=== PATIENT | male | born 1960 | race Caucasian/White ===

== ENCOUNTER 2018-06-26 19:30 | Emergency (ER) | payer MEDICARE, OTHER ==
[~2018-06-26] VITALS: Ht 188 cm; Wt 132.9 kg
[~2018-06-26 19:30] MED LIST: ACET325T9 PO; ARIP10TA9 PO; BENZ-8 PO; BISA10SU13 RC; BISA10SU2 RC; BUTE15CR TP; CALC500T PO; CELE200C PO; CHOL10003 PO; CIPR500T94 PO; CYCL10TA2 PO; DOCU100T17 PO; FERR325T14 PO; FLUT16SP NS; HYDR-2762 PO; LACT1CAP PO; LEVO50TA5 PO; LOSA50TA7 PO; MAGN2400 PO; METF500T16 PO; METR500T PO; MULT-638 PO; OMEP20CA9 PO; PANT40GR PO; PANT40TA3 PO; POLY17PO3 PO; SENN1TAB9 PO; TAMS0.4C97 PO; VENL75TA PO; VENTOLIN HFA18 GM INH; WARF2TAB96 PO; ZOLP5TAB PO
[2018-06-26] MEDS ORDERED: IV NORMAL SALINE 1000ML BAG 1,000 ML IV ONE (19:45)
--- NOTE | 2018-06-26 19:45 | PHYS DOC ---
Past Medical History Past Medical History: Asthma, Diabetes-Type II, GERD, Other Additional Past Medical Histor: Hard of Hearing. Past Surgical History: Cholecystectomy Alcohol Use: None Drug Use: None Adult General Chief Complaint Chief Complaint: NEAR SYNCOPE HPI HPI Patient is a 58 year old male who presents to the emergency room brought in by ambulance lightheadedness. 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 He said he has felt this way before but he does not recall what happened. He says he has been well recently he did not eat anything today however his last meal was yesterday. He does not know why he was busy today. He has been drinking fluids blood sugar was 113 he says he feels this way int he past when his blood glucose drops below 200 where it normally is, he thinks that is what happened today. no fever no dysuria no vomiting no diarrhea currently feels some mild lightheadedness worse with standing up. Review of Systems Review of Systems Constitutional: Denies fever or chills [] Eyes: Denies change in visual acuity, redness, or eye pain [] HENT: Denies nasal congestion or sore throat [] Respiratory: Denies cough or shortness of breath [] Cardiovascular: No additional information not addressed in HPI [] GI: Denies abdominal pain, nausea, vomiting, bloody stools or diarrhea [] Musculoskeletal: Denies back pain or joint pain [] Integument: Denies rash or skin lesions [] Neurologic: Denies headache, focal weakness or sensory changes [] Endocrine: Denies polyuria or polydipsia [] All other systems were reviewed and found to be within normal limits, except as documented in this note. Current Medications Current Medications Current Medications Medications (Trade) Dose Ordered Sig/Dangelo Start Time Stop Time Status Last Admin Dose Admin Meclizine HCl (Antivert) 25 mg 1X ONCE 06/26/18 20:15 06/26/18 20:16 DC 06/26/18 20:23 25 MG Sodium Chloride 1,000 ml @ 1,000 mls/hr 1X ONCE 06/26/18 19:45 06/26/18 20:44 DC 06/26/18 19:48 1,000 MLS/HR Allergies Allergies Allergies Coded Allergies Type Severity Reaction Last Updated Verified I S O L A T I O N *CONTACT* Allergy Unknown 09/13/15 Yes aspirin Adverse Reaction Intermediate stomach upset 09/13/15 No Physical Exam Physical Exam Constitutional: Well developed, well nourished, no acute distress, non-toxic appearance. [] HENT: Normocephalic, atraumatic, bilateral external ears normal, oropharynx dry no oral exudates, nose normal. [] Eyes: PERRLA, EOMI, conjunctiva normal, no discharge. [] Neck: Normal range of motion, no tenderness, supple, no stridor. [] Cardiovascular:Heart rate regular rhythm, no murmur [] Lungs & Thorax: Bilateral breath sounds clear to auscultation [] Abdomen: Bowel sounds normal, soft, no tenderness, no masses, no pulsatile masses. [] Skin: Warm, dry, no erythema, no rash. [] Back: No tenderness, no CVA tenderness. [] Extremities: No tenderness, no cyanosis, no clubbing, ROM intact, no edema. [] Neurologic: Alert and oriented X 3, normal motor function, normal sensory function, no focal deficits noted. [] fnf intact cn's intact, no cerebellar sign Psychologic: Affect normal, judgement normal, mood normal. [] Current Patient Data Vital Signs Vital Signs Date Time Temp Pulse Resp B/P (MAP) Pulse Ox O2 Delivery O2 Flow Rate FiO2 06/26/18 19:41 98.5 76 18 129/66 (87) 97 Room Air 98.5 Lab Values Laboratory Tests Test 06/26/18 19:40 06/26/18 20:25 White Blood Count 7.2 x10^3/uL (4.0-11.0) Red Blood Count 4.90 x10^6/uL (4.30-5.70) Hemoglobin 13.0 g/dL (13.0-17.5) Hematocrit 38.9 % (39.0-53.0) L Mean Corpuscular Volume 79 fL (79-100) Mean Corpuscular Hemoglobin 27 pg (25-35) Mean Corpuscular Hemoglobin Concent 33 g/dL (31-37) Red Cell Distribution Width 16.7 % (11.5-14.5) H Platelet Count 294 x10^3/uL (140-400) Neutrophils (%) (Auto) 67 % (31-73) Lymphocytes (%) (Auto) 22 % (24-48) L Monocytes (%) (Auto) 9 % (0-9) Eosinophils (%) (Auto) 1 % (0-3) Basophils (%) (Auto) 1 % (0-3) Neutrophils # (Auto) 4.8 x10^3uL (1.8-7.7) Lymphocytes # (Auto) 1.6 x10^3/uL (1.0-4.8) Monocytes # (Auto) 0.7 x10^3/uL (0.0-1.1) Eosinophils # (Auto) 0.1 x10^3/uL (0.0-0.7) Basophils # (Auto) 0.1 x10^3/uL (0.0-0.2) Sodium Level 138 mmol/L (136-145) Potassium Level 3.8 mmol/L (3.5-5.1) Chloride Level 101 mmol/L (98-107) Carbon Dioxide Level 28 mmol/L (21-32) Anion Gap 9 (6-14) Blood Urea Nitrogen 17 mg/dL (8-26) Creatinine 2.2 mg/dL (0.7-1.3) H Estimated GFR (Cockcroft-Gault) 31.0 BUN/Creatinine Ratio 8 (6-20) Glucose Level 113 mg/dL (70-99) H Calcium Level 9.2 mg/dL (8.5-10.1) Total Bilirubin 0.8 mg/dL (0.2-1.0) Aspartate Amino Transferase (AST) 10 U/L (15-37) L Alanine Aminotransferase (ALT) 16 U/L (16-63) Alkaline Phosphatase 138 U/L (46-116) H Troponin I Quantitative < 0.017 ng/mL (0.000-0.055) GB-Ask-C-Type Natriuretic Peptide 112 pg/mL (0-124) Total Protein 8.6 g/dL (6.4-8.2) H Albumin 3.4 g/dL (3.4-5.0) Albumin/Globulin Ratio 0.7 (1.0-1.7) L Urine Collection Type Unknown Urine Color Ingrid Urine Clarity Clear Urine pH 5.5 Urine Specific [place] 1.025 Urine Protein 30 mg/dL (NEG-TRACE) Urine Glucose (UA) Negative mg/dL (NEG) Urine Ketones (Stick) Trace mg/dL (NEG) Urine Blood Negative (NEG) Urine Nitrite Negative (NEG) Urine Bilirubin Small (NEG) Urine Urobilinogen Dipstick 1.0 mg/dL (0.2 mg/dL) Urine Leukocyte Esterase Negative (NEG) Urine RBC 0 /HPF (0-2) Urine WBC 1-4 /HPF (0-4) Urine Squamous Epithelial Cells Occ /LPF Urine Amorphous Sediment Present /HPF Urine Bacteria 0 /HPF (0-FEW) Urine Hyaline Casts Occasional /HPF Urine Granular Casts Occasional /HPF Urine Mucus Mod /LPF Laboratory Tests 06/26/18 19:40 Laboratory Tests 06/26/18 19:40 EKG EKG [] Interpretation Time: EKG shows a normal sinus rhythm rate of 76 there is QRS 82 QTc 425 no ischemia was identified on this EKG interpreted by me the time of encounter Radiology/Procedures Radiology/Procedures [] Impressions: cxr portable poor quality pa/lateral my interp no definte pna, overall similar to prior, mild cardiomegaly Course & Med Decision Making Course & Med Decision Making Pertinent Labs and Imaging studies reviewed. (See chart for details) []History of asthma diabetes GERD history of prior SBO presenting with dizziness and lightheadedness. Sounds orthostatic by history but we will do a general emergency room workup hydrate the patient check orthostatics rule out acute coronary syndrome which I think is highly unlikely and go from there. 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 His lab workup is essentially unremarkable his creatinine is 2.2 which is basically at baseline no evidence of infection identified patient is very well-appearing neurologically intact I think at this point there was no chest pain at all no concerning features by history it is okay to go home he is ambulated and taken oral in the emergency room Return precautions were discussed in detail he voiced understanding of instructions Dragon Disclaimer Dragon Disclaimer This electronic medical record was generated, in whole or in part, using a voice recognition dictation system. Departure Departure Impression: Primary Impression: Lightheadedness Disposition: 01 HOME, SELF-CARE Condition: STABLE Referrals: Artemio NAJERA MD (PCP) AUDRA ANDERSON MD Jun 26, 2018 19:45
[2018-06-26 19:57] LABS: BASO # 0.1 x10^3/uL (0.0-0.2); BASO % 1 % (0-3); EOS # 0.1 x10^3/uL (0.0-0.7); EOS % 1 % (0-3); HEMATOCRIT 38.9 % (39.0-53.0); LYMPH # 1.6 x10^3/uL (1.0-4.8); LYMPH % 22 % (24-48); MEAN CORPUSCULAR HEMOGLOBIN 27 pg (25-35); MEAN CORPUSCULAR HGB CONC 33 g/dL (31-37); MEAN CORPUSCULAR VOLUME 79 fL (79-100); MONO # 0.7 x10^3/uL (0.0-1.1); MONO % 9 % (0-9); NEUT # 4.8 x10^3uL (1.8-7.7); NEUT % 67 % (31-73); PLATELET COUNT 294 x10^3/uL (140-400); RED CELL DISTRIBUTION WIDTH 16.7 % (11.5-14.5); WHITE BLOOD COUNT 7.2 x10^3/uL (4.0-11.0)
[2018-06-26 20:07] LABS: CALCIUM 9.2 mg/dL (8.5-10.1); CREATININE 2.2 mg/dL (0.7-1.3); POTASSIUM 3.8 mmol/L (3.5-5.1)
[2018-06-26 20:13] LABS: ALBUMIN 3.4 g/dL (3.4-5.0); ALBUMIN/GLOBULIN RATIO 0.7 (1.0-1.7); TOTAL BILIRUBIN 0.8 mg/dL (0.2-1.0); TOTAL PROTEIN 8.6 g/dL (6.4-8.2)
[2018-06-26] MEDS ORDERED: MECLIZINE HCL 12.5 MG TABLET. PO ONE (20:15)
[2018-06-26 20:31] LABS: BILIRUBIN,URINE SMALL (NEG); CLARITY,URINE CLEAR; COLOR,URINE AMBER; NITRITE,URINE NEGATIVE (NEG); PH,URINE 5.5; PROTEIN,URINE 30 mg/dL (NEG-TRACE)
[2018-06-26 20:36] LABS: AMORPHOUS SEDIMENT,UR PRESENT /HPF; BACTERIA,URINE 0 /HPF (0-FEW); GRANULAR CASTS,URINE OCCASIONAL /HPF; HYALINE CASTS, URINE OCCASIONAL /HPF; RBC,URINE 0 /HPF (0-2); SQUAMOUS EPITHELIAL CELL,UR OCC /LPF
[2018-06-26 21:35] VITALS: BP 117/71
--- NOTE | 2018-06-27 07:47 | RAD ---
PORTABLE CHEST 1V INDICATION: weakness COMPARISON: Chest radiograph dated 07/15/2017 FINDINGS: Low lung volume. No focal consolidation. Remote granulomatous disease. Unchanged pulmonary vasculature. No pleural effusion or pneumothorax. Borderline cardiomegaly likely accentuated due to low lung volume and portable technique. Unchanged slightly tortuous thoracic aorta. No acute osseous abnormality. IMPRESSION: 1. No focal consolidation. 2. Borderline cardiomegaly likely accentuated due to low lung volume and portable technique. Electronically signed by: Karan Pratt MD (06/27/2018 7:43 AM) [facility]
--- NOTE | 2018-06-27 07:48 | RAD ---
CHEST PA LATERAL History: weak Comparison: None. Findings: Normal lung volume. No focal consolidation. Remote granulomatous disease. Unchanged pulmonary vasculature. No pleural effusion or pneumothorax. Borderline cardiomegaly. Slightly tortuous thoracic aorta. No acute osseous abnormality. Moderate multilevel degenerative changes of the visualized spine. IMPRESSION: 1. No focal consolidation. 2. Borderline cardiomegaly. Electronically signed by: Karan Pratt MD (06/27/2018 7:45 AM) [facility]
--- NOTE | 2018-06-27 08:10 | EKG ---
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
== END 2018-06-26 21:35 | disposition home or self-care (01) ==
LOC: ER 19:30
DX: R42 Dizziness and giddiness (principal); J45.909 Unspecified asthma, uncomplicated; K21.9 Gastro-esophageal reflux disease without esophagitis; E11.9 Type 2 diabetes mellitus without complications; Z90.49 Acquired absence of other specified parts of digestive tract; Z88.6 Allergy status to analgesic agent; Z91.041 Radiographic dye allergy status
CPT/HCPCS: 36415; 71045; 71046; 80053; 81001; 83880; 84484; 85025; 93005; 96360; 96361; 99285; J7030; J8597

== ENCOUNTER 2020-03-31 09:48 | Inpatient (IN) | payer MEDICARE, OTHER ==
[~2020-03-31] VITALS: Ht 188 cm; Wt 135.6 kg
[~2020-03-31 09:48] MED LIST changes: -BISA10SU2 RC; +BISA10SU4 RC; -CALC500T PO; +CALC500T31 PO; -HYDR-2762 PO; +HYDR-2765 PO; +LOSA-73 PO; -LOSA50TA7 PO; -MAGN2400 PO; +MAGN24003 PO; +OMEP20CA16 PO; -OMEP20CA9 PO; -PANT40TA3 PO; +PANT40TA77 PO; +POLY17PO28 PO; -POLY17PO3 PO; +SENN-162 PO; -SENN1TAB9 PO
--- NOTE | 2020-03-31 10:37 | PHYS DOC ---
Past Medical History Past Medical History: Asthma, Diabetes-Type II, GERD, Other Additional Past Medical Histor: Hard of Hearing. Past Surgical History: Cholecystectomy, Other Additional Past Surgical Histo: L LEG Smoking Status: Current Some Day Smoker Alcohol Use: None Drug Use: None General Adult EDM: Chief Complaint: ABDOMINAL PAIN HPI: HPI: Patient is a 60 year old male presents via EMS for shortness of breath and generalized weakness. Onset was 2 months ago, notes shortness of breath worsened last 1 week without any known inciting event. Nothing known makes better or worse. Does denies any type of pain at this time. Timing of symptoms has been constant since onset. Associated symptoms include several episodes of nonbloody diarrhea for past 24 hours. Patient denies any fevers, known COVID-19 contacts, recent travel, or concerning ingestions. Patient was tired of not feeling well resulting in him presenting for evaluation today Of note, patient is a poor historian. He has little recollection about his med ical history Review of Systems: Review of Systems: Constitutional: Denies fever or chills. Admits to generalized malaise [] Eyes: Denies change in visual acuity. [] HENT: Denies nasal congestion or sore throat. [] Respiratory: Denies cough. Admits increased shortness of breath, no wheezes [] Cardiovascular: Denies chest pain or edema. [] GI: Denies abdominal discomfort but no pain, nausea, vomiting, bloody stools or diarrhea. [] : Denies dysuria. [] Musculoskeletal: Denies joint pain. [] Integument: Denies rash. [] Neurologic: Denies headache, focal weakness or sensory changes. [] Endocrine: Denies polyuria or polydipsia. [] Lymphatic: Denies swollen glands. [] Psychiatric: Denies depression or anxiety. [] Heart Score: HEART Score for Chest Pain: HEART Score for Chest Pain Response (Comments) Value History Slighlty/Non-Suspicious 0 ECG Normal 0 Age >45 - < 65 1 Risk Factors >3 Risk Factors or Hx CAD 2 Troponin < Normal Limit 0 Total 3 Risk Factors: Risk Factors: DM, Current or recent (<one month) smoker, HTN, HLP, family history of CAD, obesity. Risk Scores: Score 0 - 3: 2.5% MACE over next 6 weeks - Discharge Home Score 4 - 6: 20.3% MACE over next 6 weeks - Admit for Clinical Observation Score 7 - 10: 72.7% MACE over next 6 weeks - Early Invasive Strategies Allergies: Allergies: Allergies Coded Allergies Type Severity Reaction Last Updated Verified I S O L A T I O N *CONTACT* Allergy Unknown 09/13/15 Yes aspirin Adverse Reaction Intermediate stomach upset 09/13/15 No Physical Exam: PE: Constitutional: Well developed, well nourished, no acute distress, non-toxic appearance. [] HENT: Normocephalic, atraumatic, bilateral external ears normal, oropharynx moist, no oral exudates, nose normal. [] Eyes: PERRLA, EOMI, conjunctiva normal, no discharge. [] Neck: Normal range of motion, no tenderness, supple, no stridor. [] Cardiovascular:Heart rate regular rhythm, no murmur [] Lungs & Thorax: Bilateral breath sounds clear to auscultation [] Abdomen: Bowel sounds normal, soft, no tenderness, no masses, no pulsatile masses. [] Skin: Warm, dry, no erythema, no rash. [] Back: No tenderness, no CVA tenderness. [] Extremities: No tenderness, no cyanosis, no clubbing, ROM intact, no edema. [] Neurologic: Alert and oriented X 3, normal motor function, normal sensory function, no focal deficits noted. [] Psychologic: Affect normal, judgement normal, mood normal. [] Current Patient Data: Labs: Laboratory Tests Test 03/31/20 10:50 03/31/20 14:00 03/31/20 20:53 White Blood Count 1.9 x10^3/uL Red Blood Count 4.46 x10^6/uL Hemoglobin 11.9 g/dL Hematocrit 35.2 % Mean Corpuscular Volume 79 fL Mean Corpuscular Hemoglobin 27 pg Mean Corpuscular Hemoglobin Concent 34 g/dL Red Cell Distribution Width 16.6 % Platelet Count 180 x10^3/uL Neutrophils (%) (Auto) 45 % Lymphocytes (%) (Auto) 40 % Monocytes (%) (Auto) 12 % Eosinophils (%) (Auto) 1 % Basophils (%) (Auto) 1 % Neutrophils # (Auto) 0.8 x10^3/uL Lymphocytes # (Auto) 0.7 x10^3/uL Monocytes # (Auto) 0.2 x10^3/uL Eosinophils # (Auto) 0.0 x10^3/uL Basophils # (Auto) 0.0 x10^3/uL Segmented Neutrophils % 37 % Band Neutrophils % 19 % Lymphocytes % 35 % Monocytes % 9 % Platelet Estimate Adequate Poikilocytosis Slight Anisocytosis Slight Ovalocytes Occ Sodium Level 138 mmol/L Potassium Level 2.7 mmol/L Chloride Level 99 mmol/L Carbon Dioxide Level 30 mmol/L Anion Gap 9 Blood Urea Nitrogen 9 mg/dL Creatinine 2.4 mg/dL Estimated GFR (Cockcroft-Gault) 27.8 BUN/Creatinine Ratio 4 Glucose Level 93 mg/dL Calcium Level 7.3 mg/dL Phosphorus Level 1.9 mg/dL Magnesium Level 1.8 mg/dL Ferritin 30 ng/mL Total Bilirubin 0.7 mg/dL Aspartate Amino Transf (AST/SGOT) 11 U/L Alanine Aminotransferase (ALT/SGPT) 10 U/L Alkaline Phosphatase 108 U/L Lactate Dehydrogenase 169 U/L Troponin I Quantitative < 0.017 ng/mL C-Reactive Protein, Quantitative 19.2 mg/L Total Protein 7.4 g/dL Albumin 3.2 g/dL Albumin/Globulin Ratio 0.8 Urine Collection Type Void Urine Color Yellow Urine Clarity Clear Urine pH 6.0 Urine Specific [place] 1.010 Urine Protein 30 mg/dL Urine Glucose (UA) Negative mg/dL Urine Ketones (Stick) Negative mg/dL Urine Blood Negative Urine Nitrite Negative Urine Bilirubin Negative Urine Urobilinogen Dipstick 1.0 mg/dL Urine Leukocyte Esterase Negative Urine RBC 0 /HPF Urine WBC Rare /HPF Urine Squamous Epithelial Cells None /LPF Urine Amorphous Sediment Present /HPF Urine Bacteria 0 /HPF Glucose (Fingerstick) 93 mg/dL Current Medications Medications (Trade) Dose Ordered Sig/Dangelo Route PRN Reason Start Time Stop Time Status Last Admin Dose Admin Albuterol/ Ipratropium (Duoneb) 3 ml 1X ONCE NEB 03/31/20 10:45 03/31/20 10:46 DC 03/31/20 11:13 Potassium Chloride (Klor-Con) 40 meq 1X ONCE PO 03/31/20 13:00 03/31/20 13:01 DC 03/31/20 14:27 Sodium Chloride 1,000 ml @ 30 mls/hr 1X ONCE IV 03/31/20 13:30 04/01/20 22:49 03/31/20 14:27 Ondansetron HCl (Zofran) 4 mg PRN Q4HRS PRN IV NAUSEA/VOMITING 03/31/20 13:30 Zolpidem Tartrate (Ambien) 5 mg PRN QHS PRN PO INSOMNIA 03/31/20 13:30 Acetaminophen (Tylenol) 650 mg PRN Q4HRS PRN PO TEMP OVER 100.4F OR MILD PAIN 03/31/20 13:30 Docusate Sodium (Colace) 100 mg PRN BID PRN PO HARD STOOLS 03/31/20 13:30 Albuterol Sulfate (Ventolin Neb Soln) 2.5 mg PRN Q4HRS PRN NEB SHORTNESS OF BREATH 03/31/20 13:30 Guaifenesin (Robitussin) 200 mg PRN Q4HRS PRN PO COUGH 03/31/20 13:30 Lorazepam (Ativan) 0.5 mg PRN Q4HRS PRN PO ANXIETY / AGITATION 03/31/20 13:30 Acetaminophen (Tylenol) 650 mg PRN Q4HRS PRN PO PAIN 03/31/20 13:30 Benzonatate (Tessalon Perle) 100 mg TID PO 03/31/20 14:00 03/31/20 21:32 Cyclobenzaprine HCl (Flexeril) 10 mg PRN Q6HRS PRN PO MUSCLE SPASMS 03/31/20 13:30 Polyethylene Glycol (miraLAX PACKET) 17 gm PRN DAILY PRN PO CONSTIPATION 03/31/20 13:30 Potassium Chloride (Klor-Con) 40 meq Q2H PO 03/31/20 13:45 03/31/20 15:46 DC 03/31/20 15:58 Vital Signs: Vital Signs Date Time Temp Pulse Resp B/P (MAP) Pulse Ox O2 Delivery O2 Flow Rate FiO2 03/31/20 19:53 99.5 68 18 102/61 (75) 97 Room Air 99.5 03/31/20 16:11 99.2 69 19 138/75 (96) 100 Nasal Cannula 2.0 99.2 03/31/20 13:45 76 18 128/75 (92) 96 Room Air 03/31/20 12:45 74 20 131/83 (99) 96 Room Air 03/31/20 11:45 79 18 138/79 (98) 94 Room Air 03/31/20 11:16 92 Room Air 03/31/20 10:45 77 18 134/77 (96) 95 Room Air 03/31/20 09:50 98.6 70 20 124/67 (86) 95 Room Air 98.6 EKG: EKG: EKG ordered and interpreted by myself as sinus rhythm at 77 bpm, prolonged QT with QTC 489, other intervals unremarkable. Left axis deviation. Nonspecific T wave abnormalities in V2 and V3. No STEMI Radiology/Procedures: Radiology/Procedures: PROCEDURE: PORTABLE CHEST 1V EXAM: Chest, single view. HISTORY: Shortness of breath. COMPARISON: 06/26/2018. FINDINGS: A frontal view of the chest is obtained. There is diffuse increased interstitial opacity due to interstitial infiltrate. There are few calcified granulomas. There is no consolidation, protrusion or pneumothorax. There is a stable prominent cardiac silhouette. IMPRESSION: Diffuse interstitial infiltrate. No consolidation is seen. Electronically signed by: Vanita Hassan MD (03/31/2020 11:11 AM) [id number] DICTATED and SIGNED BY: VANITA HASSAN MD DATE: 03/31/20 1111 Course & Med Decision Making: Course & Med Decision Making Patient seen on ED arrival by myself Vitals grossly unremarkable, limited history obtained given patient's lack of knowledge, comprehensive physical exam grossly non-concerning for acute pathology Pertinent labs and imaging studies ordered and reviewed Case discussed with on-call hospitalist, Dr. Cannon, who accepted patient for continued medical management Patient's leukopenia, severe hypokalemia, and renal impairment require hospitalization for continued medical management ED course discussed with patient in its entirety. Patient disclosed he had a history of cancer and right nephrectomy, unknown what baseline kidney function is Ultimately, patient agreeable to hospital admission for further work-up and medical intervention Patient currently under investigation for COVID-19 and pending test Dragon Disclaimer: Dragjonny Disclaimer: This electronic medical record was generated, in whole or in part, using a voice recognition dictation system. Departure Departure Impression: Primary Impression: Hypokalemia Additional Impressions: Elevated serum creatinine Leukopenia Disposition: ADMITTED INPATIENT Admitting Physician: [facility] (Dr. Cannon) Condition: STABLE Referrals: Artemio NAJERA MD (PCP) Justicifation of Admission Dx: Justifications for Admission: Justification of Admission Dx: Yes CHF: Sev. Electrolyte Abnormal Acute Renal Failure: 3-Fold Rise in Serum Crea TAYLOR CHRISTIE DO Mar 31, 2020 10:37
[2020-03-31] MEDS ORDERED: IPRATRPIUM/ALBUTEROL 0.5/2.5MG 3 ML NEBU. NEB ONE (10:45)
[2020-03-31 11:03] LABS: BASO % 1 % (0-3); EOS % 1 % (0-3); HEMATOCRIT 35.2 % (39.0-53.0); HEMOGLOBIN 11.9 g/dL (13.0-17.5); LYMPH # 0.7 x10^3/uL (1.0-4.8); LYMPH % 40 % (24-48); MEAN CORPUSCULAR HEMOGLOBIN 27 pg (25-35); MEAN CORPUSCULAR HGB CONC 34 g/dL (31-37); MEAN CORPUSCULAR VOLUME 79 fL (79-100); MONO # 0.2 x10^3/uL (0.0-1.1); MONO % 12 % (0-9); NEUT # 0.8 x10^3/uL (1.8-7.7); NEUT % 45 % (31-73); PLATELET COUNT 180 x10^3/uL (140-400); RED BLOOD COUNT 4.46 x10^6/uL (4.30-5.70); RED CELL DISTRIBUTION WIDTH 16.6 % (11.5-14.5)
[2020-03-31 11:05] LABS: WHITE BLOOD COUNT 1.9 x10^3/uL (4.0-11.0)
[2020-03-31 11:14] LABS: ALBUMIN 3.2 g/dL (3.4-5.0); ALBUMIN/GLOBULIN RATIO 0.8 (1.0-1.7); CALCIUM 7.3 mg/dL (8.5-10.1); CREATININE 2.4 mg/dL (0.7-1.3); GFR 27.8; TOTAL BILIRUBIN 0.7 mg/dL (0.2-1.0); TOTAL PROTEIN 7.4 g/dL (6.4-8.2)
--- NOTE | 2020-03-31 11:14 | RAD ---
EXAM: Chest, single view. HISTORY: Shortness of breath. COMPARISON: 06/26/2018. FINDINGS: A frontal view of the chest is obtained. There is diffuse increased interstitial opacity due to interstitial infiltrate. There are few calcified granulomas. There is no consolidation, protrusion or pneumothorax. There is a stable prominent cardiac silhouette. IMPRESSION: Diffuse interstitial infiltrate. No consolidation is seen. Electronically signed by: Vanita Yoon MD (03/31/2020 11:11 AM) [id number]
[2020-03-31 11:17] LABS: POTASSIUM 2.7 mmol/L (3.5-5.1)
[2020-03-31 12:39] LABS: % BANDS 19 % (0-9); % LYMPHS 35 % (24-48); % MONOS 9 % (0-10); % SEGS 37 % (35-66)
[2020-03-31 12:44] LABS: ANISOCYTOSIS SLIGHT; OVALOCYTES OCC; PLT ESTIMATE ADEQUATE (ADEQUATE); POIKILOCYTOSIS SLIGHT
[2020-03-31] MEDS ORDERED: POTASSIUM CHLORIDE 20 MEQ TABLET.ER. PO ONE (13:00)
[2020-03-31] MEDS ORDERED: ALBUTEROL SULFATE 2.5 MG/3 ML NEBU. NEB PRN (13:30)
[2020-03-31] MEDS ORDERED: CYCLOBENZAPRINE 10 MG TABLET. PO PRN (13:30)
[2020-03-31] MEDS ORDERED: IV NORMAL SALINE 1000ML BAG 1,000 ML IV ONE (13:30)
[2020-03-31] MEDS ORDERED: guaiFENesin ORAL 200 MG/10 ML LIQUID. PO PRN (13:30)
[2020-03-31] MEDS ORDERED: POLYETHYLENE GLYCOL 3350 17 GM PACKET. PO PRN (13:30)
[2020-03-31] MEDS ORDERED: ACETAMINOPHEN 325 MG TABLET. PO PRN ×2 (13:30)
[2020-03-31] MEDS ORDERED: DOCUSATE SODIUM 100 MG CAPSULE. PO PRN (13:30)
[2020-03-31] MEDS ORDERED: ZOLPIDEM 5 MG TABLET. PO PRN (13:30)
[2020-03-31] MEDS ORDERED: LORazepam 0.5 MG TABLET PO PRN (13:30)
[2020-03-31] MEDS ORDERED: ONDANSETRON PF 4 MG/2 ML VIAL. IV PRN (13:30)
[2020-03-31 14:44] LABS: BILIRUBIN,URINE NEGATIVE (NEG); CLARITY,URINE CLEAR; COLOR,URINE YELLOW; NITRITE,URINE NEGATIVE (NEG); PROTEIN,URINE 30 mg/dL (NEG-TRACE)
[2020-03-31 14:57] LABS: BACTERIA,URINE 0 /HPF (0-FEW); RBC,URINE 0 /HPF (0-2)
[2020-03-31 14:57] LABS: C-REACTIVE PROTEIN 19.2 mg/L (0-3.3)
[2020-03-31 14:58] LABS: AMORPHOUS SEDIMENT,UR PRESENT /HPF; WBC,URINE RARE /HPF (0-4)
[2020-03-31] MEDS: BENZONATATE 100 MG CAPSULE. PO SCH ×2 (15:37→21:32)
[2020-03-31] MEDS: POTASSIUM CHLORIDE 20 MEQ TABLET.ER. PO SCH ×3 (15:38→15:58)
[2020-03-31 16:11] VITALS: BP 138/75
[2020-03-31 19:53] VITALS: BP 102/61
[2020-03-31] MEDS: FLUTICASONE 50MCG/NASAL SPRAY 16GM BOTTLE. NS SCH (21:31)
[2020-03-31] MEDS: CELECOXIB 100 MG CAPSULE. PO SCH (21:32)
[2020-03-31] MEDS: VENLAFAXINE 75 MG TABLET. PO SCH (21:32)
[2020-03-31] MEDS: SENNOSIDES/DOCUSATE 8.6/50MG TABLET. PO SCH (21:32)
[2020-03-31 23:28] VITALS: BP 121/74
[2020-04-01 03:23] VITALS: BP 113/74
[2020-04-01] MEDS: PANTOPRAZOLE 40 MG TABLET.DR. PO SCH ×2 (07:30→08:38)
[2020-04-01 07:51] VITALS: BP 105/51
[2020-04-01] MEDS: CELECOXIB 100 MG CAPSULE. PO SCH ×2 (08:38→08:55)
[2020-04-01] MEDS: BENZONATATE 100 MG CAPSULE. PO SCH ×3 (08:38→20:58)
[2020-04-01] MEDS: VENLAFAXINE 75 MG TABLET. PO SCH ×3 (08:38→20:58)
[2020-04-01] MEDS: ARIPiprazole 5 MG TABLET PO SCH ×2 (08:38→08:55)
[2020-04-01] MEDS: MULTIVITAMIN with MINERAL TABLET. PO SCH (08:39)
[2020-04-01] MEDS: LEVOTHYROXINE 50 MCG TABLET PO SCH ×2 (08:39→08:55)
[2020-04-01] MEDS: CHOLECALCIFEROL (VITAMIN D3) 1,000 UNIT TABLET PO SCH ×2 (08:39→08:55)
[2020-04-01] MEDS: FLUTICASONE 50MCG/NASAL SPRAY 16GM BOTTLE. NS SCH ×2 (08:39→20:59)
--- NOTE | 2020-04-01 08:56 | NUR ---
Pt could not verify that he takes these home medications. Pt does not remember what medications he takes nor what pharmacy he uses for his medications. This RN asked patient if his sister could verify his home medications and he stated she would not know them. Will notify MD. Will continue to monitor.
[2020-04-01] MEDS ORDERED: LOSARTAN POTASSIUM 50 MG TABLET. PO SCH (09:00)
[2020-04-01] MEDS ORDERED: ARIPiprazole 5 MG TABLET PO SCH (09:00)
[2020-04-01] MEDS ORDERED: OMEP40CA45 PO (11:00)
[2020-04-01] MEDS ORDERED: ARIP10TA15 PO (11:00)
[2020-04-01] MEDS ORDERED: CITA20TA6 PO (11:00)
[2020-04-01] MEDS ORDERED: LOSA50TA15 PO (11:00)
[2020-04-01] MEDS ORDERED: LEVO75TA5 PO (11:00)
--- NOTE | 2020-04-01 11:08 | PDOC1 ---
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 He also noted shortness of breath and generalized weakness. His abdominal complaints were fairly sudden while he was at work. Shortness of breath began 2 months ago, notes shortness of breath worsened last 1 week without any known inciting event. Nothing known makes better or worse. Does denies any type of pain at this time. Timing of symptoms has been constant since onset. Associated symptoms include several episodes of nonbloody diarrhea for past 24 hours. Patient denies any fevers, known COVID-19 contacts, recent travel, or concerning ingestions. Patient was tired of not feeling well resulting in him presenting for evaluation. Of note a week ago he was given a prescription for metronidazole for GI symptoms. CXR with diffuse interstitial opacities. Labs significant for NA 138K2.7 BUN 9, CR 2.4, glucose 93, CRP 19.2, phosphorus 1.9, ferritin 30, albumin 3.2, WBC 1.9 with ANC of 0.8, Hb 11.9, platelets 180. Admitted for further care Past Medical History Pulmonary: Asthma GI: GERD Endocrine: Diabetes Past Surgical History Past Surgical History: Appendectomy, Cholecystectomy, Hernia Repair, Other (Right nephrectomy) Family History Family History: Cancer, Diabetes, Heart Disease Social History Smoke: <1 pack per day ALCOHOL: none Drugs: None Current Problem List Problem List Problems Medical Problems: (1) Elevated serum creatinine Status: Acute (2) Hypokalemia Status: Acute (3) Leukopenia Status: Acute Current Medications Current Medications Current Medications Albuterol/ Ipratropium (Duoneb) 3 ml 1X ONCE NEB Last administered on 03/31/20at 11:13; Start 03/31/20 at 10:45; Stop 03/31/20 at 10:46; Status DC Potassium Chloride (Klor-Con) 40 meq 1X ONCE PO Last administered on 03/31/20at 14:27; Start 03/31/20 at 13:00; Stop 03/31/20 at 13:01; Status DC Sodium Chloride 1,000 ml @ 30 mls/hr 1X ONCE IV Last administered on 03/31/20at 14:27; Start 03/31/20 at 13:30; Stop 04/01/20 at 22:49 Ondansetron HCl (Zofran) 4 mg PRN Q4HRS PRN IV NAUSEA/VOMITING; Start 03/31/20 at 13:30 Zolpidem Tartrate (Ambien) 5 mg PRN QHS PRN PO INSOMNIA; Start 03/31/20 at 13:30 Acetaminophen (Tylenol) 650 mg PRN Q4HRS PRN PO TEMP OVER 100.4F OR MILD PAIN; Start 03/31/20 at 13:30 Docusate Sodium (Colace) 100 mg PRN BID PRN PO HARD STOOLS; Start 03/31/20 at 1 3:30 Albuterol Sulfate (Ventolin Neb Soln) 2.5 mg PRN Q4HRS PRN NEB SHORTNESS OF BREATH; Start 03/31/20 at 13:30 Guaifenesin (Robitussin) 200 mg PRN Q4HRS PRN PO COUGH; Start 03/31/20 at 13:30 Lorazepam (Ativan) 0.5 mg PRN Q4HRS PRN PO ANXIETY / AGITATION; Start 03/31/20 at 13:30 Acetaminophen (Tylenol) 650 mg PRN Q4HRS PRN PO PAIN; Start 03/31/20 at 13:30 Benzonatate (Tessalon Perle) 100 mg TID PO Last administered on 04/01/20at 08:38; Start 03/31/20 at 14:00 Vitamin D (Vitamin D3) 1,000 unit DAILY PO ; Start 04/01/20 at 09:00 Cyclobenzaprine HCl (Flexeril) 10 mg PRN Q6HRS PRN PO MUSCLE SPASMS; Start 03/31/20 at 13:30 Fluticasone Propionate (Flonase) 2 spray BID NS Last administered on 04/01/20at 08:39; Start 03/31/20 at 21:00 Levothyroxine Sodium (Synthroid) 50 mcg DAILY PO ; Start 04/01/20 at 09:00 Losartan Potassium (Cozaar) 50 mg DAILY PO ; Start 04/01/20 at 09:00; Status Hold Multivitamins (Thera M Plus) 1 tab DAILY PO Last administered on 04/01/20at 08:39; Start 04/01/20 at 09:00 Polyethylene Glycol (miraLAX PACKET) 17 gm PRN DAILY PRN PO CONSTIPATION; Start 03/31/20 at 13:30 Senna/Docusate Sodium (Senna Plus) 1 tab QHS PO Last administered on 03/31/20at 21:32; Start 03/31/20 at 21:00 Venlafaxine HCl (Effexor) 75 mg BID PO Last administered on 03/31/20at 21:32; Start 03/31/20 at 21:00 Aripiprazole (Abilify) 5 mg DAILY PO ; Start 04/01/20 at 09:00; Stop 03/31/20 at 14:36; Status DC Celecoxib (CeleBREX) 200 mg BID PO Last administered on 03/31/20at 21:32; Start 03/31/20 at 21:00; Stop 04/01/20 at 11:03; Status DC Pantoprazole Sodium (Protonix) 40 mg DAILYAC PO ; Start 04/01/20 at 07:30 Potassium Chloride (Klor-Con) 40 meq Q2H PO Last administered on 03/31/20at 15:58; Start 03/31/20 at 13:45; Stop 03/31/20 at 15:46; Status DC Aripiprazole (Abilify) 10 mg DAILY PO ; Start 04/01/20 at 09:00 Active Scripts Active Polyethylene Glycol 3350 17 Gm Powd.pack 17 Gm PO PRN DAILY PRN 30 Days Reported Losartan Potassium 50 Mg Tablet 50 Mg PO DAILY 90 Days Omeprazole 40 Mg Capsule.dr 40 Mg PO DAILY 90 Days Levothyroxine Sodium 75 Mcg Tablet 75 Mcg PO DAILY06 90 Days Citalopram Hbr (Citalopram Hydrobromide) 20 Mg Tablet 20 Mg PO DAILY 90 Days Aripiprazole 10 Mg Tablet 10 Mg PO BID 90 Days Benzonatate 100 Mg Capsule 1 Cap PO TID Senexon-S Tablet (Sennosides/Docusate Sodium) 1 Each Tablet 1 Each PO QHS Venlafaxine Hcl 75 Mg Tablet 1 Tab PO BID Abilify (Aripiprazole) 10 Mg Tablet 10 Mg PO DAILY Losartan Potassium 50 Mg Tablet 50 Mg PO DAILY Fluticasone Propionate Nasal [place] (Fluticasone Propionate) 16 Gm [place].susp 2 [place] NS BID Levothyroxine Sodium 50 Mcg Tablet 1 Tab PO DAILY Thera M Plus Tablet (Multivits,Ca,Minerals/Iron/FA) 1 Each Tablet 1 Each PO DAILY Move It Along (Docusate Sodium) 100 Mg Tablet 100 Mg PO Cyclobenzaprine Hcl 10 Mg Tablet 1 Tab PO PRN Q6HRS PRN Vitamin D3 (Cholecalciferol (Vitamin D3)) 1,000 Unit Tablet 1 Tab PO DAILY Celebrex (Celecoxib) 200 Mg Capsule 200 Mg PO BID 30 Days Tylenol (Acetaminophen) 325 Mg Tablet 1-2 Tab PO PRN Q4HRS PRN Omeprazole 20 Mg Capsule.dr 20 Mg PO DAILY Allergies Allergies: Coded Allergies: I S O L A T I O N *CONTACT* (Verified Allergy, Unknown, 09/13/15) mrsa + aspirin (Unverified Adverse Reaction, Intermediate, stomach upset, 09/13/15) ROS General: YES: Fatigue, Malaise; No: Chills, Night Sweats, Appetite, Other PSYCHOLOGICAL ROS: YES: Anxiety, Behavioral Disorder, Irritablity, Memory difficulties, Mood Swings; No: Concentration difficultie, Decreased libido, Depression, Disorientation, Hallucinations, Hostility, Obsessive thoughts, Physical abuse, Sexual abuse, Sleep disturbances, Suicidal ideation, Other Eyes: No Blurry vision, No Decreased vision, No Double vision, No Dry eyes, No Excessive tearing, No Eye Pain, No Itchy Eyes, No Loss of vision, No Photophobia, No Scotomata, No Uses contacts, No Uses glasses, No Other HEENT: No: Heacaches, Visual Changes, Hearing change, Nasal congestion, Nasal discharge, Oral lesions, Sinus pain, Sore Throat, Epistaxis, Sneezing, Snoring, Tinnitus, Vertigo, Vocal changes, Other ALLERGY AND IMMUNOLOGY: No: Hives, Insect Bite Sensitivity, Itchy/Watery Eyes, Nasal Congestion, Post Nasal Drip, Seasonal Allergies, Other Hematological and Lymphatic: No: Bleeding Problems, Blood Clots, Blood Transfusions, Brusing, Night Sweats, Pallor, Swollen Lymph Nodes, Other ENDOCRINE: No: Breast Changes, Galactorrhea, Hair Pattern Changes, Hot Flashes, Malaise/lethargy, Mood Swings, Palpitations, Polydipsia/polyuria, Skin Changes, Temperature Intolerance, Unexpected Weight Changes, Other Breast: No New/Changing Breast Lumps, No Nipple changes, No Nipple discharge, No Other Respiratory: YES: Cough, Shortness of breath, SOB with excertion; No: Hemoptysis, Orthopnea, Pleuritic Pain, Sputum Changes, Stridor, Tachypnea, Wheezing, Other Cardiovascular: No Chest Pain, No Palpitations, No Orthopnea, No Paroxysmal Noc. Dyspnea, No Edema, No Lt Headedness, No Other Gastrointestinal: Yes Nausea, Yes Vomiting, Yes Diarrhea; No Abdominal Pain, No Constipation, No Melena, No Hematochezia, No Other Genitourinary: No Dysuria, No Frequency, No Incontinence, No Hematuria, No Retention, No Discharge, No Urgency, No Pain, No Flank Pain, No Other, No , No , No , No , No , No , No Musculoskeletal: No Gait Disturbance, No Joint Pain, No Joint Stiffness, No Joint Swelling, No Muscle Pain, No Muscular Weakness, No Pain In:, No Swelling In:, No Other Neurological: No Behavorial Changes, No Bowel/Bladder ControlChng, No Confusion, No Dizziness, No Gait Disturbance, No Headaches, No Impaired Coord/balance, No Memory Loss, No Numbness/Tingling, No Seizures, No Speech Problems, No Tremors, No Visual Changes, No Weakness, No Other Skin: No Dry Skin, No Eczema, No Hair Changes, No Lumps, No Mole Changes, No Mottling, No Nail Changes, No Pruritus, No Rash, No Skin Lesion Changes, No Other, No Acne Physical Exam General: Alert, Oriented X3, Cooperative, mild distress HEENT: Atraumatic, PERRLA, EOMI, Mucous membr. moist/pink Lungs: Other (Bibasilar crackles) Heart: S1S2, RRR, no thrills, no rubs, no gallops, no murmurs Abdomen: Normal bowel sounds, Soft, No hepatosplenomegaly, No masses, Other (LLQ tender) Rectal Exam: not examined Extremities: No clubbing, No cyanosis, No edema, Normal pulses, No tenderness/swelling Skin: No rashes, No breakdown, No significant lesion Neuro: Normal gait, Normal speech, Strength at 5/5 X4 ext, Normal tone, Sensation intact, Cranial nerves 3-12 NL, Reflexes 2+ Psych/Mental Status: Other (Hypervigilant, circumferential thoughts, some tangential thoughts.) Vitals Vitals Vital Signs Date Time Temp Pulse Resp B/P (MAP) Pulse Ox O2 Delivery O2 Flow Rate FiO2 04/01/20 07:51 96.7 70 16 105/51 (69) 98 Nasal Cannula 2.0 96.7 Labs Labs Laboratory Tests Test 03/31/20 10:50 03/31/20 14:00 03/31/20 20:53 04/01/20 07:19 White Blood Count 1.9 x10^3/uL (4.0-11.0) Red Blood Count 4.46 x10^6/uL (4.30-5.70) Hemoglobin 11.9 g/dL (13.0-17.5) Hematocrit 35.2 % (39.0-53.0) Mean Corpuscular Volume 79 fL (79-100) Mean Corpuscular Hemoglobin 27 pg (25-35) Mean Corpuscular Hemoglobin Concent 34 g/dL (31-37) Red Cell Distribution Width 16.6 % (11.5-14.5) Platelet Count 180 x10^3/uL (140-400) Neutrophils (%) (Auto) 45 % (31-73) Lymphocytes (%) (Auto) 40 % (24-48) Monocytes (%) (Auto) 12 % (0-9) Eosinophils (%) (Auto) 1 % (0-3) Basophils (%) (Auto) 1 % (0-3) Neutrophils # (Auto) 0.8 x10^3/uL (1.8-7.7) Lymphocytes # (Auto) 0.7 x10^3/uL (1.0-4.8) Monocytes # (Auto) 0.2 x10^3/uL (0.0-1.1) Eosinophils # (Auto) 0.0 x10^3/uL (0.0-0.7) Basophils # (Auto) 0.0 x10^3/uL (0.0-0.2) Segmented Neutrophils % 37 % (35-66) Band Neutrophils % 19 % (0-9) Lymphocytes % 35 % (24-48) Monocytes % 9 % (0-10) Platelet Estimate Adequate (ADEQUATE) Poikilocytosis Slight Anisocytosis Slight Ovalocytes Occ Sodium Level 138 mmol/L (136-145) Potassium Level 2.7 mmol/L (3.5-5.1) Chloride Level 99 mmol/L (98-107) Carbon Dioxide Level 30 mmol/L (21-32) Anion Gap 9 (6-14) Blood Urea Nitrogen 9 mg/dL (8-26) Creatinine 2.4 mg/dL (0.7-1.3) Estimated GFR (Cockcroft-Gault) 27.8 BUN/Creatinine Ratio 4 (6-20) Glucose Level 93 mg/dL (70-99) Calcium Level 7.3 mg/dL (8.5-10.1) Phosphorus Level 1.9 mg/dL (2.6-4.7) Magnesium Level 1.8 mg/dL (1.8-2.4) Ferritin 30 ng/mL (26-388) Total Bilirubin 0.7 mg/dL (0.2-1.0) Aspartate Amino Transf (AST/SGOT) 11 U/L (15-37) Alanine Aminotransferase (ALT/SGPT) 10 U/L (16-63) Alkaline Phosphatase 108 U/L (46-116) Lactate Dehydrogenase 169 U/L (85-227) Troponin I Quantitative < 0.017 ng/mL (0.000-0.055) C-Reactive Protein, Quantitative 19.2 mg/L (0-3.3) Total Protein 7.4 g/dL (6.4-8.2) Albumin 3.2 g/dL (3.4-5.0) Albumin/Globulin Ratio 0.8 (1.0-1.7) Urine Collection Type Void Urine Color Yellow Urine Clarity Clear Urine pH 6.0 (<5.0-8.0) Urine Specific Adams 1.010 (1.000-1.030) Urine Protein 30 mg/dL (NEG-TRACE) Urine Glucose (UA) Negative mg/dL (NEG) Urine Ketones (Stick) Negative mg/dL (NEG) Urine Blood Negative (NEG) Urine Nitrite Negative (NEG) Urine Bilirubin Negative (NEG) Urine Urobilinogen Dipstick 1.0 mg/dL (0.2 mg/dL) Urine Leukocyte Esterase Negative (NEG) Urine RBC 0 /HPF (0-2) Urine WBC Rare /HPF (0-4) Urine Squamous Epithelial Cells None /LPF Urine Amorphous Sediment Present /HPF Urine Bacteria 0 /HPF (0-FEW) Glucose (Fingerstick) 93 mg/dL (70-99) 93 mg/dL (70-99) Test 04/01/20 10:20 Glucose (Fingerstick) 86 mg/dL (70-99) Laboratory Tests Test 03/31/20 14:00 03/31/20 20:53 04/01/20 07:19 04/01/20 10:20 Urine Collection Type Void Urine Color Yellow Urine Clarity Clear Urine pH 6.0 (<5.0-8.0) Urine Specific [place] 1.010 (1.000-1.030) Urine Protein 30 mg/dL (NEG-TRACE) Urine Glucose (UA) Negative mg/dL (NEG) Urine Ketones (Stick) Negative mg/dL (NEG) Urine Blood Negative (NEG) Urine Nitrite Negative (NEG) Urine Bilirubin Negative (NEG) Urine Urobilinogen Dipstick 1.0 mg/dL (0.2 mg/dL) Urine Leukocyte Esterase Negative (NEG) Urine RBC 0 /HPF (0-2) Urine WBC Rare /HPF (0-4) Urine Squamous Epithelial Cells None /LPF Urine Amorphous Sediment Present /HPF Urine Bacteria 0 /HPF (0-FEW) Glucose (Fingerstick) 93 mg/dL (70-99) 93 mg/dL (70-99) 86 mg/dL (70-99) Images Images CXR: There is diffuse increased interstitial opacity due to interstitial infiltrate. There are few calcified granulomas. There is no consolidation, protrusion or pneumothorax. There is a stable prominent cardiac silhouette. IMPRESSION: Diffuse interstitial infiltrate. No consolidation is seen. VTE Prophylaxis Ordered VTE Prophylaxis Devices: No VTE Pharmacological Prophylaxi: Yes Assessment/Plan Assessment/Plan A/P: Nausea, vomiting, diarrhea -IV antiemetics, follow-up stool culture. Shortness of breath - with abnormal CXR and COPD history has been tested for COVID 19. On heparin. Will f/u results Hypokalemia - likely from GI losses, will replace, check mag and phos. Consult nephrology given his solitary kidney status. Normally he sees Dr. Sher Leukopenia - on Abilify which is a new medication for him, he does not know why he is on it but with his circumferential thoughts it is likely for primary mood disorder. I will consult psychiatry for assistance in assessing king on this med and for alternatives he has previously been on Geodon. FRANKO on CKD - likely vasomotor nephropathy from vomiting and diarrhea. Given IVF relief Chronic obstructive pulmonary disease - will give inhalers to avoid aerosolizition Obstructive sleep apnea - not currently on CPAP Obesity - counseled on weight loss Constipation Gastroesophageal reflux disease Right kidney cancer - s/p right nephrectomy Osteoarthritis Type 2 diabetes - sliding scale Anemia - likely of chronic renal disease Mood disorder - patient does not know his meds or his pharmacy. External med history reveals recent fills of abilify and venlafaxine. Hold abilify. Consult psych FEN - ADA diet PPX - heparin FULL CODE Dispo - inpatient for above Justicifation of Admission Dx: Justifications for Admission: Justification of Admission Dx: Yes CHF: Sev. Electrolyte Abnormal Acute Renal Failure: 3-Fold Rise in Serum Crea POORNIMA THOMPSON MD Apr 01, 2020 11:08
[2020-04-01 11:26] VITALS: BP 124/73
[2020-04-01] MEDS ORDERED: DEXTROSE 50% 25 GM / 50ML DISP.SYRIN. IV PRN (13:15)
[2020-04-01] MEDS: HEPARIN for SUB-Q USE 5,000 UNIT/ML VIAL. SQ SCH ×2 (14:35→21:00)
--- NOTE | 2020-04-01 14:35 | PDOC2 ---
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 He also noted shortness of breath and generalized weakness.His abdominal complaints were fairly sudden while he was at work. Shortness of breath began 2 months ago, notes shortness of breath worsened last 1 week without any known inciting event. . Also had several episodes of nonbloody diarrhea for past 24 hours. Patient denies any fevers, known COVID-19 contacts, recent traves. he was given a prescription for metronidazole for GI symptoms approx 1 week back CXR with diffuse interstitial opacities. Past Medical History Pulmonary: Asthma GI: GERD Endocrine: Diabetes Past Surgical History Past Surgical History: Appendectomy, Cholecystectomy, Hernia Repair, Other (Right nephrectomy) Family History Family History: Cancer, Diabetes, Heart Disease Social History <1 pack per day ALCOHOL: none Drugs: None Lives: with Family Current Problem List Problem List Problems Medical Problems: (1) Elevated serum creatinine Status: Acute (2) Hypokalemia Status: Acute (3) Leukopenia Status: Acute Current Medications Current Medications Current Medications Albuterol/ Ipratropium (Duoneb) 3 ml 1X ONCE NEB Last administered on 03/31/20at 11:13; Start 03/31/20 at 10:45; Stop 03/31/20 at 10:46; Status DC Potassium Chloride (Klor-Con) 40 meq 1X ONCE PO Last administered on 03/31/20at 14:27; Start 03/31/20 at 13:00; Stop 03/31/20 at 13:01; Status DC Sodium Chloride 1,000 ml @ 30 mls/hr 1X ONCE IV Last administered on 03/31/20at 14:27; Start 03/31/20 at 13:30; Stop 04/01/20 at 22:49 Ondansetron HCl (Zofran) 4 mg PRN Q4HRS PRN IV NAUSEA/VOMITING; Start 03/31/20 at 13:30 Zolpidem Tartrate (Ambien) 5 mg PRN QHS PRN PO INSOMNIA; Start 03/31/20 at 13:30 Acetaminophen (Tylenol) 650 mg PRN Q4HRS PRN PO TEMP OVER 100.4F OR MILD PAIN; Start 03/31/20 at 13:30 Docusate Sodium (Colace) 100 mg PRN BID PRN PO HARD STOOLS; Start 03/31/20 at 13:30 Albuterol Sulfate (Ventolin Neb Soln) 2.5 mg PRN Q4HRS PRN NEB SHORTNESS OF BREATH; Start 03/31/20 at 13:30 Guaifenesin (Robitussin) 200 mg PRN Q4HRS PRN PO COUGH; Start 03/31/20 at 13:30 Lorazepam (Ativan) 0.5 mg PRN Q4HRS PRN PO ANXIETY / AGITATION; Start 03/31/20 at 13:30 Acetaminophen (Tylenol) 650 mg PRN Q4HRS PRN PO PAIN; Start 03/31/20 at 13:30; Status Cancel Benzonatate (Tessalon Perle) 100 mg TID PO Last administered on 04/01/20at 08:38; Start 03/31/20 at 14:00 Vitamin D (Vitamin D3) 1,000 unit DAILY PO ; Start 04/01/20 at 09:00 Cyclobenzaprine HCl (Flexeril) 10 mg PRN Q6HRS PRN PO MUSCLE SPASMS; Start 03/31/20 at 13:30 Fluticasone Propionate (Flonase) 2 spray BID NS Last administered on 04/01/20at 08:39; Start 03/31/20 at 21:00 Levothyroxine Sodium (Synthroid) 50 mcg DAILY PO ; Start 04/01/20 at 09:00; Stop 04/01/20 at 11:04; Status DC Losartan Potassium (Cozaar) 50 mg DAILY PO ; Start 04/01/20 at 09:00; Stop 04/01/20 at 13:09; Status DC Multivitamins (Thera M Plus) 1 tab DAILY PO Last administered on 04/01/20at 08:39; Start 04/01/20 at 09:00 Polyethylene Glycol (miraLAX PACKET) 17 gm PRN DAILY PRN PO CONSTIPATION; Start 03/31/20 at 13:30 Senna/Docusate Sodium (Senna Plus) 1 tab QHS PO Last administered on 03/31/20at 21:32; Start 03/31/20 at 21:00 Venlafaxine HCl (Effexor) 75 mg BID PO Last administered on 03/31/20at 21:32; Start 03/31/20 at 21:00 Aripiprazole (Abilify) 5 mg DAILY PO ; Start 04/01/20 at 09:00; Stop 03/31/20 at 14:36; Status DC Celecoxib (CeleBREX) 200 mg BID PO Last administered on 03/31/20at 21:32; Start 03/31/20 at 21:00; Stop 04/01/20 at 11:03; Status DC Pantoprazole Sodium (Protonix) 40 mg DAILYAC PO ; Start 04/01/20 at 07:30 Potassium Chloride (Klor-Con) 40 meq Q2H PO Last administered on 03/31/20at 15:58; Start 03/31/20 at 13:45; Stop 03/31/20 at 15:46; Status DC Aripiprazole (Abilify) 10 mg DAILY PO ; Start 04/01/20 at 09:00; Stop 04/01/20 at 12:56; Status DC Levothyroxine Sodium (Synthroid) 75 mcg DAILY06 PO ; Start 04/02/20 at 06:00 Insulin Human Lispro (HumaLOG) 0-7 UNITS TIDACHC SQ ; Start 04/01/20 at 16:30 Dextrose (Dextrose 50%-Water Syringe) 12.5 gm PRN Q15MIN PRN IV SEE COMMENTS; Start 04/01/20 at 13:15 Heparin Sodium (Porcine) (Heparin Sodium) 5,000 unit Q8HRS SQ ; Start 04/01/20 at 14:00 Active Scripts Active Polyethylene Glycol 3350 17 Gm Powd.pack 17 Gm PO PRN DAILY PRN 30 Days Reported Losartan Potassium 50 Mg Tablet 50 Mg PO DAILY 90 Days Omeprazole 40 Mg Capsule.dr 40 Mg PO DAILY 90 Days Levothyroxine Sodium 75 Mcg Tablet 75 Mcg PO DAILY06 90 Days Citalopram Hbr (Citalopram Hydrobromide) 20 Mg Tablet 20 Mg PO DAILY 90 Days Aripiprazole 10 Mg Tablet 10 Mg PO BID 90 Days Benzonatate 100 Mg Capsule 1 Cap PO TID Senexon-S Tablet (Sennosides/Docusate Sodium) 1 Each Tablet 1 Each PO QHS Venlafaxine Hcl 75 Mg Tablet 1 Tab PO BID Abilify (Aripiprazole) 10 Mg Tablet 10 Mg PO DAILY Fluticasone Propionate Nasal [place] (Fluticasone Propionate) 16 Gm [place].susp 2 [place] NS BID Thera M Plus Tablet (Multivits,Ca,Minerals/Iron/FA) 1 Each Tablet 1 Each PO DAILY Move It Along (Docusate Sodium) 100 Mg Tablet 100 Mg PO Cyclobenzaprine Hcl 10 Mg Tablet 1 Tab PO PRN Q6HRS PRN Vitamin D3 (Cholecalciferol (Vitamin D3)) 1,000 Unit Tablet 1 Tab PO DAILY Celebrex (Celecoxib) 200 Mg Capsule 200 Mg PO BID 30 Days Tylenol (Acetaminophen) 325 Mg Tablet 1-2 Tab PO PRN Q4HRS PRN Allergies Allergies: Coded Allergies: I S O L A T I O N *CONTACT* (Verified Allergy, Unknown, 09/13/15) mrsa + aspirin (Unverified Adverse Reaction, Intermediate, stomach upset, 09/13/15) ROS Review of System Per HPI. rest of ROS is negative Physical Exam Physical Exam General: NAD HEENT:Mucous membr. moist/pink Neck supple Lungs Bibasilar crackles Heart: S1S2, Abdomen: Normal bowel sounds, Soft, No hepatosplenomegaly, No masses, Extremities: No clubbing, No cyanosis, No edema, Skin: No rashes Neuro: Grossly normal No carpenter Vital Signs Vital Signs Date Time Temp Pulse Resp B/P (MAP) Pulse Ox O2 Delivery O2 Flow Rate FiO2 04/01/20 11:26 96.8 68 18 124/73 (90) 97 Nasal Cannula 2.0 96.8 Assessment & Plan FRANKO - Vasomotor, sec to dehydration UA unremarkable , Monitor Renal function , agree with Holding Losartan Celecoxib listed on home med list supportive care , strict I/O, Monitor , avoid NSAID's and nephrotoxuns CKD stage -Cr 2.1 -2.2 baseline per [facility] records Follows with Dr. Sher , labs can be obtained from our office tomorrow Shortness of breath - with abnormal CXR and COPD history CoVid pending Hypokalemia - likely from GI losses, Replace Obstructive sleep apnea Obesity Right kidney cancer - s/p right nephrectomy Type 2 diabetes Anemia- No indication for PARVIZ Labs Labs Laboratory Tests Test 03/31/20 10:50 03/31/20 14:00 03/31/20 20:53 04/01/20 07:19 White Blood Count 1.9 x10^3/uL (4.0-11.0) Red Blood Count 4.46 x10^6/uL (4.30-5.70) Hemoglobin 11.9 g/dL (13.0-17.5) Hematocrit 35.2 % (39.0-53.0) Mean Corpuscular Volume 79 fL (79-100) Mean Corpuscular Hemoglobin 27 pg (25-35) Mean Corpuscular Hemoglobin Concent 34 g/dL (31-37) Red Cell Distribution Width 16.6 % (11.5-14.5) Platelet Count 180 x10^3/uL (140-400) Neutrophils (%) (Auto) 45 % (31-73) Lymphocytes (%) (Auto) 40 % (24-48) Monocytes (%) (Auto) 12 % (0-9) Eosinophils (%) (Auto) 1 % (0-3) Basophils (%) (Auto) 1 % (0-3) Neutrophils # (Auto) 0.8 x10^3/uL (1.8-7.7) Lymphocytes # (Auto) 0.7 x10^3/uL (1.0-4.8) Monocytes # (Auto) 0.2 x10^3/uL (0.0-1.1) Eosinophils # (Auto) 0.0 x10^3/uL (0.0-0.7) Basophils # (Auto) 0.0 x10^3/uL (0.0-0.2) Segmented Neutrophils % 37 % (35-66) Band Neutrophils % 19 % (0-9) Lymphocytes % 35 % (24-48) Monocytes % 9 % (0-10) Platelet Estimate Adequate (ADEQUATE) Poikilocytosis Slight Anisocytosis Slight Ovalocytes Occ Sodium Level 138 mmol/L (136-145) Potassium Level 2.7 mmol/L (3.5-5.1) Chloride Level 99 mmol/L (98-107) Carbon Dioxide Level 30 mmol/L (21-32) Anion Gap 9 (6-14) Blood Urea Nitrogen 9 mg/dL (8-26) Creatinine 2.4 mg/dL (0.7-1.3) Estimated GFR (Cockcroft-Gault) 27.8 BUN/Creatinine Ratio 4 (6-20) Glucose Level 93 mg/dL (70-99) Calcium Level 7.3 mg/dL (8.5-10.1) Phosphorus Level 1.9 mg/dL (2.6-4.7) Magnesium Level 1.8 mg/dL (1.8-2.4) Ferritin 30 ng/mL (26-388) Total Bilirubin 0.7 mg/dL (0.2-1.0) Aspartate Amino Transf (AST/SGOT) 11 U/L (15-37) Alanine Aminotransferase (ALT/SGPT) 10 U/L (16-63) Alkaline Phosphatase 108 U/L (46-116) Lactate Dehydrogenase 169 U/L (85-227) Troponin I Quantitative < 0.017 ng/mL (0.000-0.055) C-Reactive Protein, Quantitative 19.2 mg/L (0-3.3) Total Protein 7.4 g/dL (6.4-8.2) Albumin 3.2 g/dL (3.4-5.0) Albumin/Globulin Ratio 0.8 (1.0-1.7) Urine Collection Type Void Urine Color Yellow Urine Clarity Clear Urine pH 6.0 (<5.0-8.0) Urine Specific [place] 1.010 (1.000-1.030) Urine Protein 30 mg/dL (NEG-TRACE) Urine Glucose (UA) Negative mg/dL (NEG) Urine Ketones (Stick) Negative mg/dL (NEG) Urine Blood Negative (NEG) Urine Nitrite Negative (NEG) Urine Bilirubin Negative (NEG) Urine Urobilinogen Dipstick 1.0 mg/dL (0.2 mg/dL) Urine Leukocyte Esterase Negative (NEG) Urine RBC 0 /HPF (0-2) Urine WBC Rare /HPF (0-4) Urine Squamous Epithelial Cells None /LPF Urine Amorphous Sediment Present /HPF Urine Bacteria 0 /HPF (0-FEW) Glucose (Fingerstick) 93 mg/dL (70-99) 93 mg/dL (70-99) Test 04/01/20 10:20 Glucose (Fingerstick) 86 mg/dL (70-99) Laboratory Tests Test 03/31/20 20:53 04/01/20 07:19 04/01/20 10:20 Glucose (Fingerstick) 93 mg/dL (70-99) 93 mg/dL (70-99) 86 mg/dL (70-99) Review All relevant outside records, renal labs, imaging studies, telemetry/EKG's were reviewed. Images Images FINDINGS: A frontal view of the chest is obtained. There is diffuse increased interstitial opacity due to interstitial infiltrate. There are few calcified granulomas. There is no consolidation, protrusion or pneumothorax. There is a stable prominent cardiac silhouette. IMPRESSION: Diffuse interstitial infiltrate. No consolidation is seen. URSULA LOPEZ MD Apr 01, 2020 14:35
--- NOTE | 2020-04-01 15:20 | NUR ---
Dr. Esteban notified of patient BP 201/93 and Temp 102.2. Orders received for nitro paste Q6hr. Education given to patient about the medication. Patient verbalized understanding. Will continue to monitor.
[2020-04-01 15:58] VITALS: BP 136/58
[2020-04-01] MEDS: INSULIN LISPRO 300 UNITS/3 ML VIAL. SQ SCH ×2 (16:30→21:00)
[2020-04-01 19:50] VITALS: BP 132/54
[2020-04-01] MEDS: SENNOSIDES/DOCUSATE 8.6/50MG TABLET. PO SCH (20:58)
[2020-04-01 23:54] VITALS: BP 129/57
[2020-04-02] MEDS: HEPARIN for SUB-Q USE 5,000 UNIT/ML VIAL. SQ SCH ×3 (06:28→21:56)
[2020-04-02] MEDS: LEVOTHYROXINE 75 MCG TABLET PO SCH (06:29)
[2020-04-02 07:00] VITALS: BP 108/60
[2020-04-02] MEDS: INSULIN LISPRO 300 UNITS/3 ML VIAL. SQ SCH ×4 (07:30→21:00)
[2020-04-02 08:20] LABS: BASO % 0 % (0-3); EOS % 1 % (0-3); HEMATOCRIT 34.3 % (39.0-53.0); HEMOGLOBIN 11.3 g/dL (13.0-17.5); LYMPH # 0.8 x10^3/uL (1.0-4.8); LYMPH % 47 % (24-48); MEAN CORPUSCULAR HEMOGLOBIN 26 pg (25-35); MEAN CORPUSCULAR HGB CONC 33 g/dL (31-37); MEAN CORPUSCULAR VOLUME 79 fL (79-100); MONO # 0.2 x10^3/uL (0.0-1.1); MONO % 11 % (0-9); NEUT # 0.7 x10^3/uL (1.8-7.7); NEUT % 41 % (31-73); PLATELET COUNT 155 x10^3/uL (140-400); RED BLOOD COUNT 4.35 x10^6/uL (4.30-5.70); RED CELL DISTRIBUTION WIDTH 16.5 % (11.5-14.5)
[2020-04-02 08:22] LABS: WHITE BLOOD COUNT 1.6 x10^3/uL (4.0-11.0)
[2020-04-02 08:36] LABS: CALCIUM 7.3 mg/dL (8.5-10.1); CREATININE 2.1 mg/dL (0.7-1.3); GFR 32.5; MAGNESIUM 1.7 mg/dL (1.8-2.4)
[2020-04-02 08:39] LABS: POTASSIUM 2.9 mmol/L (3.5-5.1)
[2020-04-02] MEDS: CHOLECALCIFEROL (VITAMIN D3) 1,000 UNIT TABLET PO SCH (08:59)
[2020-04-02] MEDS: PANTOPRAZOLE 40 MG TABLET.DR. PO SCH (08:59)
[2020-04-02] MEDS: VENLAFAXINE 75 MG TABLET. PO SCH ×2 (08:59→21:54)
[2020-04-02] MEDS: BENZONATATE 100 MG CAPSULE. PO SCH ×3 (08:59→21:54)
[2020-04-02] MEDS: MULTIVITAMIN with MINERAL TABLET. PO SCH (08:59)
[2020-04-02] MEDS: FLUTICASONE 50MCG/NASAL SPRAY 16GM BOTTLE. NS SCH ×2 (09:00→21:55)
--- NOTE | 2020-04-02 09:07 | NUR ---
ANC 656. Pt placed in neutropenic precautions and diet changed to neutropenic.
[2020-04-02] MEDS ORDERED: POTASSIUM CHLORIDE 20 MEQ TABLET.ER. PO ONE (09:45)
[2020-04-02 10:00] VITALS: BP 114/68
--- NOTE | 2020-04-02 12:50 | PDOC ---
Renal-Progress Notes Subjective Notes Notes NO NEW COMPLAINTS, WANTS TO GO HOME History of Present Illness Hx of present illness STABLE Vitals Vitals Vital Signs Date Time Temp Pulse Resp B/P (MAP) Pulse Ox O2 Delivery O2 Flow Rate FiO2 04/02/20 10:00 98.4 71 19 114/68 (83) 93 Room Air 98.4 04/02/20 08:00 2.0 Weight Weight [ ] I.O. Intake and Output Intake and Output 04/02/20 07:00 Intake Total 880 ml Output Total 300 ml Balance 580 ml Intake Oral 780 ml IV Total 100 ml Output Urine Total 300 ml # Voids 5 Labs Labs Laboratory Tests Test 04/01/20 16:33 04/01/20 21:31 04/02/20 07:15 04/02/20 07:44 Glucose (Fingerstick) 89 mg/dL (70-99) 107 mg/dL (70-99) 89 mg/dL (70-99) White Blood Count 1.6 x10^3/uL (4.0-11.0) Red Blood Count 4.35 x10^6/uL (4.30-5.70) Hemoglobin 11.3 g/dL (13.0-17.5) Hematocrit 34.3 % (39.0-53.0) Mean Corpuscular Volume 79 fL (79-100) Mean Corpuscular Hemoglobin 26 pg (25-35) Mean Corpuscular Hemoglobin Concent 33 g/dL (31-37) Red Cell Distribution Width 16.5 % (11.5-14.5) Platelet Count 155 x10^3/uL (140-400) Neutrophils (%) (Auto) 41 % (31-73) Lymphocytes (%) (Auto) 47 % (24-48) Monocytes (%) (Auto) 11 % (0-9) Eosinophils (%) (Auto) 1 % (0-3) Basophils (%) (Auto) 0 % (0-3) Neutrophils # (Auto) 0.7 x10^3/uL (1.8-7.7) Lymphocytes # (Auto) 0.8 x10^3/uL (1.0-4.8) Monocytes # (Auto) 0.2 x10^3/uL (0.0-1.1) Eosinophils # (Auto) 0.0 x10^3/uL (0.0-0.7) Basophils # (Auto) 0.0 x10^3/uL (0.0-0.2) Sodium Level 135 mmol/L (136-145) Potassium Level 2.9 mmol/L (3.5-5.1) Chloride Level 99 mmol/L (98-107) Carbon Dioxide Level 26 mmol/L (21-32) Anion Gap 10 (6-14) Blood Urea Nitrogen 11 mg/dL (8-26) Creatinine 2.1 mg/dL (0.7-1.3) Estimated GFR (Cockcroft-Gault) 32.5 Glucose Level 92 mg/dL (70-99) Calcium Level 7.3 mg/dL (8.5-10.1) Phosphorus Level 2.0 mg/dL (2.6-4.7) Magnesium Level 1.7 mg/dL (1.8-2.4) Test 04/02/20 10:30 Glucose (Fingerstick) 99 mg/dL (70-99) Review of Systems Constitutional: yes: alert, oriented Ears/Nose/Throat: Yes: no symptom reported Eyes: Yes: no symptom reported Pulmonary: Yes no symptom reported Cardiovascular: Yes edema Gastrointestional: Yes: constipation Genitourinary: Yes: no symptom reported Musculoskeletal: Yes: no symptom reported Skin: Yes no symptom reported Psychiatric/Neurological: Yes: no symptom reported Physical Exam General Appearance: no apparent distress Skin: warm Respiratory: decreased breath sounds Heart: S1S2 Abdomen: soft, bowel sounds present Genitourinary: bladder flat Extremities: edema Neurology: alert Assessment Assessment IMP FRANKO-RESOLVED HX OF R RCCA AND NEPHRECTOMY CKD STAGE 4-CR AT BASELINE NOW OF 2.1 HYPOKALEMIA LOW MAG AND LOW PO4 DYSPNEA OBESITY/BRANDIE COPD HX DM II NON COMPLIANCE PLAN REPLACE K, MG AND PO4 SUGGEST DIURETICS ENC COMPLIANCE MAX HE MD Apr 02, 2020 12:50
--- NOTE | 2020-04-02 12:54 | PDOC ---
[employer] PROGRESS NOTE Chief Complaint Chief Complaint Nausea, vomiting, diarrhea -IV antiemetics Shortness of breath Hypokalemia Leukopenia Chronic kidney disease Chronic obstructive pulmonary disease Obstructive sleep apnea Obesity Constipation Gastroesophageal reflux disease Right kidney cancer Osteoarthritis Type 2 diabetes Anemia Mood disorder FRANKO-RESOLVED HX OF R RCCA AND NEPHRECTOMY CKD STAGE 4-CR AT BASELINE NOW OF 2.1 HYPOKALEMIA LOW MAG AND LOW PO4 DYSPNEA OBESITY/BRANDIE COPD HX DM II NON COMPLIANCE PLAN REPLACE K, MG AND PO4 SUGGEST DIURETICS ENC COMPLIANCE History of Present Illness History of Present Illness 04/02/2020 Patient seen and examined Discussed with RN Chart reviewed Vitals/I&O Vitals/I&O: Vital Signs Date Time Temp Pulse Resp B/P (MAP) Pulse Ox O2 Delivery O2 Flow Rate FiO2 04/02/20 10:00 98.4 71 19 114/68 (83) 93 Room Air 98.4 04/02/20 08:00 2.0 I & O 04/01/20 04/01/20 04/02/20 15:00 23:00 07:00 Intake Total 400 ml 480 ml Output Total 300 ml Balance 400 ml 480 ml -300 ml Physical Exam General: Alert, Oriented X3, Cooperative, mild distress Lungs: Clear, Other Abdomen: Normal bowel sounds, Soft, No hepatosplenomegaly, No masses, Other (LLQ tender) Extremities: No clubbing, No cyanosis, No edema, Normal pulses, No tenderness/swelling Skin: No rashes, No breakdown, No significant lesion Labs Labs: Laboratory Tests Test 04/01/20 16:33 04/01/20 21:31 04/02/20 07:15 04/02/20 07:44 Glucose (Fingerstick) 89 mg/dL (70-99) 107 mg/dL (70-99) 89 mg/dL (70-99) White Blood Count 1.6 x10^3/uL (4.0-11.0) Red Blood Count 4.35 x10^6/uL (4.30-5.70) Hemoglobin 11.3 g/dL (13.0-17.5) Hematocrit 34.3 % (39.0-53.0) Mean Corpuscular Volume 79 fL (79-100) Mean Corpuscular Hemoglobin 26 pg (25-35) Mean Corpuscular Hemoglobin Concent 33 g/dL (31-37) Red Cell Distribution Width 16.5 % (11.5-14.5) Platelet Count 155 x10^3/uL (140-400) Neutrophils (%) (Auto) 41 % (31-73) Lymphocytes (%) (Auto) 47 % (24-48) Monocytes (%) (Auto) 11 % (0-9) Eosinophils (%) (Auto) 1 % (0-3) Basophils (%) (Auto) 0 % (0-3) Neutrophils # (Auto) 0.7 x10^3/uL (1.8-7.7) Lymphocytes # (Auto) 0.8 x10^3/uL (1.0-4.8) Monocytes # (Auto) 0.2 x10^3/uL (0.0-1.1) Eosinophils # (Auto) 0.0 x10^3/uL (0.0-0.7) Basophils # (Auto) 0.0 x10^3/uL (0.0-0.2) Sodium Level 135 mmol/L (136-145) Potassium Level 2.9 mmol/L (3.5-5.1) Chloride Level 99 mmol/L (98-107) Carbon Dioxide Level 26 mmol/L (21-32) Anion Gap 10 (6-14) Blood Urea Nitrogen 11 mg/dL (8-26) Creatinine 2.1 mg/dL (0.7-1.3) Estimated GFR (Cockcroft-Gault) 32.5 Glucose Level 92 mg/dL (70-99) Calcium Level 7.3 mg/dL (8.5-10.1) Phosphorus Level 2.0 mg/dL (2.6-4.7) Magnesium Level 1.7 mg/dL (1.8-2.4) Test 04/02/20 10:30 Glucose (Fingerstick) 99 mg/dL (70-99) Assessment and Plan Assessmemt and Plan Problems Medical Problems: (1) Elevated serum creatinine Status: Acute (2) Hypokalemia Status: Acute (3) Leukopenia Status: Acut Nausea, vomiting, diarrhea -IV antiemetics, follow-up stool culture. Shortness of breath - with abnormal CXR and COPD history has been tested for COVID 19. On heparin. Will f/u results Hypokalemia - likely from GI losses, will replace, check mag and phos. Consult nephrology given his solitary kidney status. Normally he sees Dr. Sher Leukopenia - on Abilify which is a new medication for him, he does not know why he is on it but with his circumferential thoughts it is likely for primary mood disorder. I will consult psychiatry for assistance in assessing king on this med and for alternatives he has previously been on Geodon. FRANKO on CKD - likely vasomotor nephropathy from vomiting and diarrhea. Given IVF relief Chronic obstructive pulmonary disease - will give inhalers to avoid ae rosolizition Obstructive sleep apnea - not currently on CPAP Obesity - counseled on weight loss Constipation Gastroesophageal reflux disease Right kidney cancer - s/p right nephrectomy Osteoarthritis Type 2 diabetes - sliding scale Anemia - likely of chronic renal disease Mood disorder - patient does not know his meds or his pharmacy. External med history reveals recent fills of abilify and venlafaxine. Hold abilify. Consult psych Home meds DVT prophylaxis Full code Appreciate subspecialist input Per nephrology please see below: FRANKO-RESOLVED HX OF R RCCA AND NEPHRECTOMY CKD STAGE 4-CR AT BASELINE NOW OF 2.1 HYPOKALEMIA LOW MAG AND LOW PO4 DYSPNEA OBESITY/BRANDIE COPD HX DM II NON COMPLIANCE PLAN REPLACE K, MG AND PO4 SUGGEST DIURETICS ENC COMPLIANCE Comment Review of Relevant I have reviewed the following items chasidy (where applicable) has been applied. Medications: Current Medications Medications (Trade) Dose Ordered Sig/Dangelo Route PRN Reason Start Time Stop Time Status Last Admin Dose Admin Levothyroxine Sodium (Synthroid) 75 mcg DAILY06 PO 04/02/20 06:00 04/02/20 06:29 Heparin Sodium (Porcine) (Heparin Sodium) 5,000 unit Q8HRS SQ 04/01/20 14:00 04/02/20 06:28 Potassium Chloride (Klor-Con) 40 meq 1X ONCE PO 04/02/20 09:45 04/02/20 09:46 DC 04/02/20 10:06 Justicifation of Admission Dx: Justifications for Admission: Justification of Admission Dx: Yes CHF: Sev. Electrolyte Abnormal Acute Renal Failure: 3-Fold Rise in Serum Crea CASTLE,NIAL K III DO Apr 02, 2020 12:54
--- NOTE | 2020-04-02 12:58 | PDOC ---
[employer] PROGRESS NOTE Chief Complaint Chief Complaint Hypokalemia; Elevated Cr; Leukopenia; Pui History of Present Illness History of Present Illness 04/02/2020 Patient seen and examined Charts reviewed Discussed with RN Nausea, vomiting, diarrhea -IV antiemetics, follow-up stool culture. Shortness of breath - with abnormal CXR and COPD history has been tested for COVID 19. On heparin. Will f/u results Hypokalemia - likely from GI losses, will replace, check mag and phos. Consult nephrology given his solitary kidney status. Normally he sees Dr. Sher Leukopenia - on Abilify which is a new medication for him, he does not know why he is on it but with his circumferential thoughts it is likely for primary mood disorder. I will consult psychiatry for assistance in assessing king on this med and for alternatives he has previously been on Geodon. FRANKO on CKD - likely vasomotor nephropathy from vomiting and diarrhea. Given IVF relief Chronic obstructive pulmonary disease - will give inhalers to avoid aerosolizition Obstructive sleep apnea - not currently on CPAP Obesity - counseled on weight loss Constipation Gastroesophageal reflux disease Right kidney cancer - s/p right nephrectomy Osteoarthritis Type 2 diabetes - sliding scale Anemia - likely of chronic renal disease Mood disorder - patient does not know his meds or his pharmacy. External med history reveals recent fills of abilify and venlafaxine. Hold abilify. Consult psych Vitals/I&O Vitals/I&O: Vital Signs Date Time Temp Pulse Resp B/P (MAP) Pulse Ox O2 Delivery O2 Flow Rate FiO2 04/02/20 10:00 98.4 71 19 114/68 (83) 93 Room Air 98.4 04/02/20 08:00 2.0 I & O 04/01/20 04/01/20 04/02/20 15:00 23:00 07:00 Intake Total 400 ml 480 ml Output Total 300 ml Balance 400 ml 480 ml -300 ml Physical Exam General: Alert, Oriented X3, Cooperative, mild distress Heart: Regular rate, Normal S1, Normal S2 Lungs: Clear, Other Abdomen: Normal bowel sounds, Soft, No hepatosplenomegaly, No masses, Other (LLQ tender) Extremities: No clubbing, No cyanosis, No edema, Normal pulses, No tenderness/swelling Skin: No rashes, No breakdown, No significant lesion Labs Labs: Laboratory Tests Test 04/01/20 16:33 04/01/20 21:31 04/02/20 07:15 04/02/20 07:44 Glucose (Fingerstick) 89 mg/dL (70-99) 107 mg/dL (70-99) 89 mg/dL (70-99) White Blood Count 1.6 x10^3/uL (4.0-11.0) Red Blood Count 4.35 x10^6/uL (4.30-5.70) Hemoglobin 11.3 g/dL (13.0-17.5) Hematocrit 34.3 % (39.0-53.0) Mean Corpuscular Volume 79 fL (79-100) Mean Corpuscular Hemoglobin 26 pg (25-35) Mean Corpuscular Hemoglobin Concent 33 g/dL (31-37) Red Cell Distribution Width 16.5 % (11.5-14.5) Platelet Count 155 x10^3/uL (140-400) Neutrophils (%) (Auto) 41 % (31-73) Lymphocytes (%) (Auto) 47 % (24-48) Monocytes (%) (Auto) 11 % (0-9) Eosinophils (%) (Auto) 1 % (0-3) Basophils (%) (Auto) 0 % (0-3) Neutrophils # (Auto) 0.7 x10^3/uL (1.8-7.7) Lymphocytes # (Auto) 0.8 x10^3/uL (1.0-4.8) Monocytes # (Auto) 0.2 x10^3/uL (0.0-1.1) Eosinophils # (Auto) 0.0 x10^3/uL (0.0-0.7) Basophils # (Auto) 0.0 x10^3/uL (0.0-0.2) Sodium Level 135 mmol/L (136-145) Potassium Level 2.9 mmol/L (3.5-5.1) Chloride Level 99 mmol/L (98-107) Carbon Dioxide Level 26 mmol/L (21-32) Anion Gap 10 (6-14) Blood Urea Nitrogen 11 mg/dL (8-26) Creatinine 2.1 mg/dL (0.7-1.3) Estimated GFR (Cockcroft-Gault) 32.5 Glucose Level 92 mg/dL (70-99) Calcium Level 7.3 mg/dL (8.5-10.1) Phosphorus Level 2.0 mg/dL (2.6-4.7) Magnesium Level 1.7 mg/dL (1.8-2.4) Test 04/02/20 10:30 Glucose (Fingerstick) 99 mg/dL (70-99) Assessment and Plan Assessmemt and Plan Problems Medical Problems: (1) Elevated serum creatinine Status: Acute (2) Hypokalemia Status: Acute (3) Leukopenia Status: Acute A/P: Nausea, vomiting, diarrhea -IV antiemetics, follow-up stool culture. Shortness of breath - with abnormal CXR and COPD history has been tested for COVID 19. On heparin. Will f/u results Hypokalemia - likely from GI losses, will replace, check mag and phos. Consult nephrology given his solitary kidney status. Normally he sees Dr. Sher Leukopenia - on Abilify which is a new medication for him, he does not know why he is on it but with his circumferential thoughts it is likely for primary mood disorder. I will consult psychiatry for assistance in assessing king on this med and for alternatives he has previously been on Geodon. FRANKO on CKD - likely vasomotor nephropathy from vomiting and diarrhea. Given IVF relief Chronic obstructive pulmonary disease - will give inhalers to avoid aerosolizition Obstructive sleep apnea - not currently on CPAP Obesity - counseled on weight loss Constipation Gastroesophageal reflux disease Right kidney cancer - s/p right nephrectomy Osteoarthritis Type 2 diabetes - sliding scale Anemia - likely of chronic renal disease Mood disorder - patient does not know his meds or his pharmacy. External med history reveals recent fills of abilify and venlafaxine. Hold abilify. Consult psych Plan Continue ADA diet DVT prophylaxis Trend labs (WBC and BP) FULL CODE Consult with Hematology/Oncology Comment Review of Relevant I have reviewed the following items chasidy (where applicable) has been applied. Medications: Current Medications Medications (Trade) Dose Ordered Sig/Dangelo Route PRN Reason Start Time Stop Time Status Last Admin Dose Admin Levothyroxine Sodium (Synthroid) 75 mcg DAILY06 PO 04/02/20 06:00 04/02/20 06:29 Heparin Sodium (Porcine) (Heparin Sodium) 5,000 unit Q8HRS SQ 04/01/20 14:00 04/02/20 06:28 Potassium Chloride (Klor-Con) 40 meq 1X ONCE PO 04/02/20 09:45 04/02/20 09:46 DC 04/02/20 10:06 Justicifation of Admission Dx: Justifications for Admission: Justification of Admission Dx: Yes CHF: Sev. Electrolyte Abnormal Acute Renal Failure: 3-Fold Rise in Serum Crea CHANTELL ANTHONY III DO Apr 02, 2020 12:58
[2020-04-02] MEDS ORDERED: MAGNESIUM SULFATE 2GM 50 ML IV ONE (13:00)
[2020-04-02] MEDS: FUROSEMIDE 40 MG TABLET. PO SCH (14:38)
[2020-04-02] MEDS: POTASSIUM PHOS,M-BASIC-D-BASIC 13.6 MMOL in IV NORMAL SALINE 250ML 250 ML IV SCH ×2 (14:39→15:00)
[2020-04-02 15:00] VITALS: BP 109/62
--- NOTE | 2020-04-02 17:13 | PDOC1 ---
History & Psych Evaluation Date of Admission: Date of Admission DATE: 04/02/20 TIME: 16:57 Source: Source: Caregiver, Chart review, Patient Identification: Identification He is a 60-year-old gentleman with history of major depressive disorder. 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 Later, he found to have leukopenia, acute kidney injury and electrolyte imbalance. He turns out to be positive for COVID 19 as reported by nursing staff. Upon interview he he appears somewhat guarded, minimally interactive, and withdrawn. However he provided meaningful information. Stating, he has history of depression and mild anxiety treated with Abilify and venlafaxine. States, with medications his depression is relatively better and controlled. Depression is more prominent with sad mood, psychomotor retardation, irritability, anger, and concentration deficit. He denies history of previous suicidal attempt or suicidal ideation. Denies history of nonsuicidal self-injurious behavior. Denies history of bipolar mood disorder. He has history of auditory or visual hallucinations with derogatory comments and comments towards patient. Presently he denies auditory or visual hallucinations. Is rated as 02/1010 is worse. Depression is characterized as mostly sadness and psychomotor retardation. He wanted to go home stating he is doing fine however I am not sure whether he is aware of his COVID. I defer it to his primary team to inform regarding the COVID. Past Psychiatric History: Past history of major depressive disorder and anxiety disorder. Denies previous history of psychiatric hospital admission. Denies history of suicidal ideation and suicidal attempt. Denies history of nonsuicidal self-injurious behavior. Medications: Effexor, zolpidem, and Abilify Past Medical History: Pulmonary: Asthma GI: GERD Endocrine: Diabetes Family History: Denies family history of psychiatric illness. Denies family history of s uicidality. Social History: Social History: He lives with his mother. Denies history of illicit substance use. Denies legal issues. Denies history of excessive alcohol abuse. He is a smoker. Current Medications: Current Medications Current Medications Medications (Trade) Dose Ordered Sig/Dangelo Start Time Stop Time Status Last Admin Dose Admin Acetaminophen (Tylenol) 650 mg PRN Q4HRS PRN 03/31/20 13:30 Cancel Albuterol Sulfate (Ventolin Neb Soln) 2.5 mg PRN Q4HRS PRN 03/31/20 13:30 Albuterol/ Ipratropium (Duoneb) 3 ml 1X ONCE 03/31/20 10:45 03/31/20 10:46 DC 03/31/20 11:13 3 ML Aripiprazole (Abilify) 10 mg DAILY 04/01/20 09:00 04/01/20 12:56 DC Benzonatate (Tessalon Perle) 100 mg TID 03/31/20 14:00 04/02/20 14:38 100 MG Celecoxib (CeleBREX) 200 mg BID 03/31/20 21:00 04/01/20 11:03 DC 03/31/20 21:32 200 MG Cyclobenzaprine HCl (Flexeril) 10 mg PRN Q6HRS PRN 03/31/20 13:30 Dextrose (Dextrose 50%-Water Syringe) 12.5 gm PRN Q15MIN PRN 04/01/20 13:15 Docusate Sodium (Colace) 100 mg PRN BID PRN 03/31/20 13:30 Fluticasone Propionate (Flonase) 2 spray BID 03/31/20 21:00 04/02/20 09:00 2 SPRAY Furosemide (Lasix) 40 mg BID92 04/02/20 14:00 04/02/20 14:38 40 MG Guaifenesin (Robitussin) 200 mg PRN Q4HRS PRN 03/31/20 13:30 Heparin Sodium (Porcine) (Heparin Sodium) 5,000 unit Q8HRS 04/01/20 14:00 04/02/20 14:43 5,000 UNIT Insulin Human Lispro (HumaLOG) 0-7 UNITS TIDACHC 04/01/20 16:30 Levothyroxine Sodium (Synthroid) 75 mcg DAILY06 04/02/20 06:00 04/02/20 06:29 75 MCG Lorazepam (Ativan) 0.5 mg PRN Q4HRS PRN 03/31/20 13:30 Losartan Potassium (Cozaar) 50 mg DAILY 04/01/20 09:00 04/01/20 13:09 DC Magnesium Sulfate 50 ml @ 25 mls/hr 1X ONCE 04/02/20 13:00 04/02/20 14:59 DC 04/02/20 14:39 25 MLS/HR Multivitamins (Thera M Plus) 1 tab DAILY 04/01/20 09:00 04/02/20 08:59 1 TAB Ondansetron HCl (Zofran) 4 mg PRN Q4HRS PRN 03/31/20 13:30 Pantoprazole Sodium (Protonix) 40 mg DAILYAC 04/01/20 07:30 04/02/20 08:59 40 MG Polyethylene Glycol (miraLAX PACKET) 17 gm PRN DAILY PRN 03/31/20 13:30 Potassium Phosphate 13.6 mmol/Sodium Chloride 254.5333 ml @ 127.... Q2H 04/02/20 13:00 04/02/20 16:59 04/02/20 14:39 127.267 MLS/HR Potassium Chloride (Klor-Con) 40 meq 1X ONCE 04/02/20 09:45 04/02/20 09:46 DC 04/02/20 10:06 40 MEQ Senna/Docusate Sodium (Senna Plus) 1 tab QHS 03/31/20 21:00 04/01/20 20:58 1 TAB Sodium Chloride 1,000 ml @ 30 mls/hr 1X ONCE 03/31/20 13:30 04/01/20 17:26 DC 03/31/20 14:27 30 MLS/HR Venlafaxine HCl (Effexor) 75 mg BID 03/31/20 21:00 04/02/20 08:59 75 MG Vitamin D (Vitamin D3) 1,000 unit DAILY 04/01/20 09:00 04/02/20 08:59 1,000 UNIT Zolpidem Tartrate (Ambien) 5 mg PRN QHS PRN 03/31/20 13:30 Allergies: Allergies: Coded Allergies: I S O L A T I O N *CONTACT* (Verified Allergy, Unknown, 09/13/15) mrsa + aspirin (Unverified Adverse Reaction, Intermediate, stomach upset, 09/13/15) Mental Status Examination: Mental Status Examination 60-year-old gentleman appears as a stated age, fairly groomed fairly nourished Initially guarded and down. Fully oriented. Thought processes concrete, wanting to go home. Denies auditory or visual hallucinations. No evidence of paranoia. Denies suicidal or homicidal thoughts. Mood is intermittently sad. Affect is euthymic. Insight is fair Judgment is fair Impulse control is fair attention span and concentration fair Recent and remote memory intact. ROS: 14 point review of system is otherwise negative except for mentioned in medical history and H&P of this note. Physical Exam: Refer to Physician's note. COMMISSIONER OF INTERNAL REVENUE: No focal deficit MSK: No EPS, TDK, or abnormal involuntary movements Vitals: Vitals Vital Signs Date Time Temp Pulse Resp B/P (MAP) Pulse Ox O2 Delivery O2 Flow Rate FiO2 04/02/20 15:00 98.4 66 19 109/62 (78) 94 Room Air 98.4 04/02/20 08:00 2.0 Labs: Labs Laboratory Tests Test 03/31/20 20:53 04/01/20 07:19 04/01/20 10:20 04/01/20 16:33 Glucose (Fingerstick) 93 mg/dL (70-99) 93 mg/dL (70-99) 86 mg/dL (70-99) 89 mg/dL (70-99) Test 04/01/20 21:31 04/02/20 07:15 04/02/20 07:44 04/02/20 10:30 Glucose (Fingerstick) 107 mg/dL (70-99) 89 mg/dL (70-99) 99 mg/dL (70-99) White Blood Count 1.6 x10^3/uL (4.0-11.0) Red Blood Count 4.35 x10^6/uL (4.30-5.70) Hemoglobin 11.3 g/dL (13.0-17.5) Hematocrit 34.3 % (39.0-53.0) Mean Corpuscular Volume 79 fL (79-100) Mean Corpuscular Hemoglobin 26 pg (25-35) Mean Corpuscular Hemoglobin Concent 33 g/dL (31-37) Red Cell Distribution Width 16.5 % (11.5-14.5) Platelet Count 155 x10^3/uL (140-400) Neutrophils (%) (Auto) 41 % (31-73) Lymphocytes (%) (Auto) 47 % (24-48) Monocytes (%) (Auto) 11 % (0-9) Eosinophils (%) (Auto) 1 % (0-3) Basophils (%) (Auto) 0 % (0-3) Neutrophils # (Auto) 0.7 x10^3/uL (1.8-7.7) Lymphocytes # (Auto) 0.8 x10^3/uL (1.0-4.8) Monocytes # (Auto) 0.2 x10^3/uL (0.0-1.1) Eosinophils # (Auto) 0.0 x10^3/uL (0.0-0.7) Basophils # (Auto) 0.0 x10^3/uL (0.0-0.2) Sodium Level 135 mmol/L (136-145) Potassium Level 2.9 mmol/L (3.5-5.1) Chloride Level 99 mmol/L (98-107) Carbon Dioxide Level 26 mmol/L (21-32) Anion Gap 10 (6-14) Blood Urea Nitrogen 11 mg/dL (8-26) Creatinine 2.1 mg/dL (0.7-1.3) Estimated GFR (Cockcroft-Gault) 32.5 Glucose Level 92 mg/dL (70-99) Calcium Level 7.3 mg/dL (8.5-10.1) Phosphorus Level 2.0 mg/dL (2.6-4.7) Magnesium Level 1.7 mg/dL (1.8-2.4) Test 04/02/20 16:55 Glucose (Fingerstick) 94 mg/dL (70-99) Laboratory Tests Test 04/01/20 21:31 04/02/20 07:15 04/02/20 07:44 04/02/20 10:30 Glucose (Fingerstick) 107 mg/dL (70-99) 89 mg/dL (70-99) 99 mg/dL (70-99) White Blood Count 1.6 x10^3/uL (4.0-11.0) Red Blood Count 4.35 x10^6/uL (4.30-5.70) Hemoglobin 11.3 g/dL (13.0-17.5) Hematocrit 34.3 % (39.0-53.0) Mean Corpuscular Volume 79 fL (79-100) Mean Corpuscular Hemoglobin 26 pg (25-35) Mean Corpuscular Hemoglobin Concent 33 g/dL (31-37) Red Cell Distribution Width 16.5 % (11.5-14.5) Platelet Count 155 x10^3/uL (140-400) Neutrophils (%) (Auto) 41 % (31-73) Lymphocytes (%) (Auto) 47 % (24-48) Monocytes (%) (Auto) 11 % (0-9) Eosinophils (%) (Auto) 1 % (0-3) Basophils (%) (Auto) 0 % (0-3) Neutrophils # (Auto) 0.7 x10^3/uL (1.8-7.7) Lymphocytes # (Auto) 0.8 x10^3/uL (1.0-4.8) Monocytes # (Auto) 0.2 x10^3/uL (0.0-1.1) Eosinophils # (Auto) 0.0 x10^3/uL (0.0-0.7) Basophils # (Auto) 0.0 x10^3/uL (0.0-0.2) Sodium Level 135 mmol/L (136-145) Potassium Level 2.9 mmol/L (3.5-5.1) Chloride Level 99 mmol/L (98-107) Carbon Dioxide Level 26 mmol/L (21-32) Anion Gap 10 (6-14) Blood Urea Nitrogen 11 mg/dL (8-26) Creatinine 2.1 mg/dL (0.7-1.3) Estimated GFR (Cockcroft-Gault) 32.5 Glucose Level 92 mg/dL (70-99) Calcium Level 7.3 mg/dL (8.5-10.1) Phosphorus Level 2.0 mg/dL (2.6-4.7) Magnesium Level 1.7 mg/dL (1.8-2.4) Test 04/02/20 16:55 Glucose (Fingerstick) 94 mg/dL (70-99) Diagnosis: Diagnosis: Major depressive disorder, recurrent, moderate. Delirium likely multifactorial, hypoactive hypoactive. Unspecified anxiety. Assessment: Gentleman is a 60-year-old male with history of major depressive disorder found to have leukopenia. He is in Abilify which has been discontinued. General Supervisor is in agreement with discontinuation of Abilify as it may cause bone marrow suppression. All antipsychotics can cause bone marrow suppression. Continue Effexor as is. In case of worsening depression, we will consider something else for augmentation like Wellbutrin which does not cause leukopenia or bone marrow suppression. Plan: Discontinue Abilify. Due to leukopenia. Continue other medications as prescribed. Risk, benefits, alternatives of the treatment are discussed. He is in agreement with plan and voiced understanding. Adverse drug reactions including but not limited to of medications were discussed. He is in acceptance. Monitor for mood, symptomatology, mental status. Will make medication changes accordingly. Applied delirium protocol, avoid sedatives and hypnotics, and sundowning. Thank you for involving inpatient care for RANDY MANCIA MD Apr 02, 2020 17:13
--- NOTE | 2020-04-02 17:29 | NUR ---
SW following. Spoke with RN and CM. Reviewed chart. Spoke with pt. Pt stated he lives with his sister. Pt stated he has [employer] insurance and home 02. Pt stated no concerns about returning home when stable. Pt not ready for discharge per fever. SW to follow as needed.
[2020-04-02] MEDS ORDERED: PIP/TAZO PER PHARMACY MC PRN (17:30)
[2020-04-02] MEDS: PIPERACILLIN/TAZOBACTAM 3.375 GM in IV NORMAL SALINE 50ML 50 ML IV SCH ×2 (18:11→23:20)
[2020-04-02 19:00] VITALS: BP 90/55
--- NOTE | 2020-04-02 19:52 | CONS ---
DATE OF CONSULTATION: PULMONARY CONSULTATION ATTENDING PHYSICIAN: Jose Cannon MD REASON FOR CONSULTATION: Hypoxia, COVID-19 pneumonia. HISTORY OF PRESENT ILLNESS: The patient is a 60-year-old male who has no history of tobacco use, but does have a history of asthma, type 2 diabetes and history of renal cell carcinoma, status post right nephrectomy. The patient presented to the hospital initially with nausea and vomiting with abdominal pain. He works as a grocery cashier at a store. He said he may have been exposed to someone with the COVID-19. The patient noted some mild shortness of breath. The patient was brought into the hospital. His imaging study was performed, and I have reviewed the patient's chest x-ray and it shows bilateral interstitial and alveolar infiltrates. No significant pleural effusion seen. His COVID testing was performed and it was positive. The patient is currently requiring 2 liters of oxygen. Saturations in the mid to high 90s. I have been asked to see him for further evaluation. PAST MEDICAL HISTORY: Significant for asthma, history of GERD, history of diabetes, history of depression. PAST SURGICAL HISTORY: Appendectomy, cholecystectomy, hernia repair, and right nephrectomy. FAMILY HISTORY: Cancer, diabetes and heart disease. SOCIAL HISTORY: He denies significant tobacco use. ALLERGIES: ASPIRIN. CURRENT MEDICATIONS: Reviewed as listed in the MRAD including antibiotic, Zosyn. He is also on oral Lasix b.i.d. and p.r.n. nebulizer. REVIEW OF SYSTEMS: Twelve-point system obtained. Pertinent positives discussed in my history of present illness, otherwise noncontributory. All systems that were negative were reviewed as well. PHYSICAL EXAMINATION: He is in no obvious respiratory distress. Currently, he is on 2 liters. Exam was performed via telemedicine. T-max was 100.5. Blood pressure 109/62. He does not appear to be in any obvious respiratory distress. He does not have any skin rash or edema.. LABORATORY DATA: Reviewed. His BUN is 11, creatinine 2.1. Potassium 2.9. Sodium 135. His white cell count of 1.6, hemoglobin 11.3 and platelets are 155. IMPRESSION: 1. Acute hypoxic respiratory failure secondary to COVID-19 pneumonia. 2. Leukopenia secondary to viral pneumonia. 3. Acute kidney injury. Likely due to COVID-19 infection. 4. Abnormal chest x-ray consistent with interstitial pneumonia related to COVID-19. 5. Hypokalemia. RECOMMENDATIONS: 1. Continue present oxygen at 2 liters to keep saturation 92 and above. 2. Empiric antibiotics. 3. Monitor the course of the disease. We will watch for any worsening hypoxia. 4. May consider remdesivir. 5. If clinically deteriorates, then we will consider anti-IL-6 treatment with tocilizumab. 6. Antidepressants per Psychiatry. 7. Monitor renal function closely. The patient has a history of right nephrectomy. Lasix dose can be adjusted. 8. Discussed with RN. Consult performed via telemedicine and will follow along with you. MARTELL ALBRIGHT MD DR: JAX/telly JOB#: [id number] / [id number]
[2020-04-02] MEDS: methylPREDNISolone SOD SUCC PF 40 MG/ML VIAL. IV SCH (21:54)
[2020-04-02] MEDS: SENNOSIDES/DOCUSATE 8.6/50MG TABLET. PO SCH (21:54)
[2020-04-02 23:00] VITALS: BP 99/57
[2020-04-03 02:51] VITALS: BP 87/50
[2020-04-03 04:58] LABS: CALCIUM 7.4 mg/dL (8.5-10.1); CREATININE 2.5 mg/dL (0.7-1.3); GFR 26.6; MAGNESIUM 2.2 mg/dL (1.8-2.4); PHOSPHORUS 2.5 mg/dL (2.6-4.7); POTASSIUM 3.5 mmol/L (3.5-5.1)
[2020-04-03] MEDS: LEVOTHYROXINE 75 MCG TABLET PO SCH (06:03)
[2020-04-03] MEDS: PIPERACILLIN/TAZOBACTAM 3.375 GM in IV NORMAL SALINE 50ML 50 ML IV SCH ×3 (06:04→17:48)
[2020-04-03] MEDS: methylPREDNISolone SOD SUCC PF 40 MG/ML VIAL. IV SCH ×3 (06:05→21:08)
[2020-04-03] MEDS: HEPARIN for SUB-Q USE 5,000 UNIT/ML VIAL. SQ SCH ×3 (06:06→21:11)
[2020-04-03 07:15] VITALS: BP 95/60
[2020-04-03] MEDS: INSULIN LISPRO 300 UNITS/3 ML VIAL. SQ SCH ×4 (07:30→21:07)
[2020-04-03] MEDS: BENZONATATE 100 MG CAPSULE. PO SCH ×3 (08:40→20:49)
[2020-04-03] MEDS: MULTIVITAMIN with MINERAL TABLET. PO SCH (08:40)
[2020-04-03] MEDS: FUROSEMIDE 40 MG TABLET. PO SCH ×2 (08:40→13:52)
[2020-04-03] MEDS: PANTOPRAZOLE 40 MG TABLET.DR. PO SCH (08:40)
[2020-04-03] MEDS: CHOLECALCIFEROL (VITAMIN D3) 1,000 UNIT TABLET PO SCH (08:40)
[2020-04-03] MEDS: VENLAFAXINE 75 MG TABLET. PO SCH ×2 (08:40→20:49)
--- NOTE | 2020-04-03 09:00 | NUR ---
Patient experiencing arrhythmias -Dr. Luque notified -Order received consult Cardiology. Addendum: 04/03/20 at 1719 by LETY TADEO RN RN WRONG PATIENT RECORD
--- NOTE | 2020-04-03 09:29 | PDOC ---
Infectious Disease Note Vital Sign Vital Signs Vital Signs Date Time Temp Pulse Resp B/P (MAP) Pulse Ox O2 Delivery O2 Flow Rate FiO2 04/03/20 07:29 98 Nasal Cannula 2.0 04/03/20 07:15 97.6 46 18 95/60 (72) 97.6 Labs Lab Laboratory Tests Test 04/02/20 10:30 04/02/20 16:55 04/02/20 19:44 04/03/20 04:08 Glucose (Fingerstick) 99 mg/dL (70-99) 94 mg/dL (70-99) 115 mg/dL (70-99) Sodium Level 135 mmol/L (136-145) Potassium Level 3.5 mmol/L (3.5-5.1) Chloride Level 101 mmol/L (98-107) Carbon Dioxide Level 27 mmol/L (21-32) Anion Gap 7 (6-14) Blood Urea Nitrogen 15 mg/dL (8-26) Creatinine 2.5 mg/dL (0.7-1.3) Estimated GFR (Cockcroft-Gault) 26.6 Glucose Level 187 mg/dL (70-99) Calcium Level 7.4 mg/dL (8.5-10.1) Phosphorus Level 2.5 mg/dL (2.6-4.7) Magnesium Level 2.2 mg/dL (1.8-2.4) Test 04/03/20 08:05 Glucose (Fingerstick) 180 mg/dL (70-99) Objective Assessment Fever COVID + 03/31 Leukopenia - ? viral- denies tick exposure - does have h/o Renal Ca Cancer FRANKO h/o Renal Cell CA 2015 at [facility] - no chemo or XRT Plan Plan of Care Cont Zosyn CBC with diff/Procal and add LFTs this am F/u labs and cults Thank you # [id number] KALLIE MORALES MD Apr 03, 2020 09:29
--- NOTE | 2020-04-03 09:42 | PDOC ---
[employer] PROGRESS NOTE Chief Complaint Chief Complaint Hypokalemia; Elevated Cr; Leukopenia; Pui History of Present Illness History of Present Illness 04/03/2020 Pt resting with NAD Chart reviewed \04/02/2020 Patient seen and examined Charts reviewed Discussed with RN Nausea, vomiting, diarrhea -IV antiemetics, follow-up stool culture. Shortness of breath - with abnormal CXR and COPD history has been tested for COVID 19. On heparin. Will f/u results Hypokalemia - likely from GI losses, will replace, check mag and phos. Consult nephrology given his solitary kidney status. Normally he sees Dr. Sher Leukopenia - on Abilify which is a new medication for him, he does not know why he is on it but with his circumferential thoughts it is likely for primary mood disorder. I will consult psychiatry for assistance in assessing king on this med and for alternatives he has previously been on Geodon. FRANKO on CKD - likely vasomotor nephropathy from vomiting and diarrhea. Given IVF relief Chronic obstructive pulmonary disease - will give inhalers to avoid aerosolizit ion Obstructive sleep apnea - not currently on CPAP Obesity - counseled on weight loss Constipation Gastroesophageal reflux disease Right kidney cancer - s/p right nephrectomy Osteoarthritis Type 2 diabetes - sliding scale Anemia - likely of chronic renal disease Mood disorder - patient does not know his meds or his pharmacy. External med history reveals recent fills of abilify and venlafaxine. Hold abilify. Consult psych Vitals/I&O Vitals/I&O: Vital Signs Date Time Temp Pulse Resp B/P (MAP) Pulse Ox O2 Delivery O2 Flow Rate FiO2 04/03/20 08:10 Nasal Cannula 2.0 04/03/20 07:29 98 04/03/20 07:15 97.6 46 18 95/60 (72) 97.6 I & O 04/02/20 04/02/20 04/03/20 15:00 23:00 07:00 Intake Total 120 ml Output Total 600 ml 0 ml Balance 120 ml -600 ml 0 ml Physical Exam General: No acute distress Heart: Regular rate, Normal S1, Normal S2 Lungs: Clear, Other Abdomen: Normal bowel sounds, Soft, No hepatosplenomegaly, No masses, Other ( LLQ tender) Extremities: No clubbing, No cyanosis, No edema, Normal pulses, No tenderness/swelling Skin: No rashes, No breakdown, No significant lesion Labs Labs: Laboratory Tests Test 04/02/20 10:30 04/02/20 16:55 04/02/20 19:44 04/03/20 04:08 Glucose (Fingerstick) 99 mg/dL (70-99) 94 mg/dL (70-99) 115 mg/dL (70-99) Sodium Level 135 mmol/L (136-145) Potassium Level 3.5 mmol/L (3.5-5.1) Chloride Level 101 mmol/L (98-107) Carbon Dioxide Level 27 mmol/L (21-32) Anion Gap 7 (6-14) Blood Urea Nitrogen 15 mg/dL (8-26) Creatinine 2.5 mg/dL (0.7-1.3) Estimated GFR (Cockcroft-Gault) 26.6 Glucose Level 187 mg/dL (70-99) Calcium Level 7.4 mg/dL (8.5-10.1) Phosphorus Level 2.5 mg/dL (2.6-4.7) Magnesium Level 2.2 mg/dL (1.8-2.4) Test 04/03/20 08:05 Glucose (Fingerstick) 180 mg/dL (70-99) Assessment and Plan Assessmemt and Plan Problems Medical Problems: (1) Elevated serum creatinine Status: Acute (2) Hypokalemia Status: Acute (3) Leukopenia Status: Acute Nausea, vomiting, diarrhea -IV antiemetics, follow-up stool culture. Shortness of breath - with abnormal CXR and COPD history has been tested for COVID 19. On heparin. Will f/u results Hypokalemia - likely from GI losses, will replace, check mag and phos. Consult nephrology given his solitary kidney status. Normally he sees Dr. Sher Leukopenia - on Abilify which is a new medication for him, he does not know why he is on it but with his circumferential thoughts it is likely for primary mood disorder. I will consult psychiatry for assistance in assessing king on this med and for alternatives he has previously been on Geodon. FRANKO on CKD - likely vasomotor nephropathy from vomiting and diarrhea. Given IVF relief Chronic obstructive pulmonary disease - will give inhalers to avoid aerosolizition Obstructive sleep apnea - not currently on CPAP Obesity - counseled on weight loss Constipation Gastroesophageal reflux disease Right kidney cancer - s/p right nephrectomy Osteoarthritis Type 2 diabetes - sliding scale Anemia - likely of chronic renal disease Mood disorder - patient does not know his meds or his pharmacy. External med history reveals recent fills of abilify and venlafaxine. Hold abilify. Consult psych Home meds DVT prophylaxis Full code Appreciate subspecialist input Will recheck labs Comment Review of Relevant I have reviewed the following items chasidy (where applicable) has been applied. Medications: Current Medications Medications (Trade) Dose Ordered Sig/Dangelo Route PRN Reason Start Time Stop Time Status Last Admin Dose Admin Potassium Chloride (Klor-Con) 40 meq 1X ONCE PO 04/02/20 09:45 04/02/20 09:46 DC 04/02/20 10:06 Furosemide (Lasix) 40 mg BID92 PO 04/02/20 14:00 04/03/20 08:40 Potassium Phosphate 13.6 mmol/Sodium Chloride 254.5333 ml @ 127.... Q2H IV 04/02/20 13:00 04/02/20 16:59 DC 04/02/20 15:00 Magnesium Sulfate 50 ml @ 25 mls/hr 1X ONCE IV 04/02/20 13:00 04/02/20 14:59 DC 04/02/20 14:39 Piperacillin Sod/ Tazobactam Sod 3.375 gm/Sodium Chloride 50 ml @ 100 mls/hr Q6HRS IV 04/02/20 18:00 04/03/20 06:04 Methylprednisolone Sodium Succinate (SOLU-Medrol 40MG VIAL) 60 mg Q8HRS IV 04/02/20 20:00 04/03/20 06:05 Justicifation of Admission Dx: Justifications for Admission: Justification of Admission Dx: Yes CHF: Sev. Electrolyte Abnormal Acute Renal Failure: 3-Fold Rise in Serum Crea CASTLE,NIAL K III DO Apr 03, 2020 09:42
[2020-04-03] MEDS: FLUTICASONE 50MCG/NASAL SPRAY 16GM BOTTLE. NS SCH ×2 (10:07→20:49)
[2020-04-03 10:35] VITALS: BP 114/63
--- NOTE | 2020-04-03 11:20 | CONS ---
DATE OF CONSULTATION: 04/03/2020 INFECTIOUS DISEASE CONSULTATION LOCATION: Room 67. REQUESTING PHYSICIAN: Dr. Luque. REASON FOR CONSULTATION: Positive COVID. HISTORY OF PRESENT ILLNESS: The patient is a 60-year-old gentleman with a history of renal cell cancer diagnosed in 2014, underwent a nephrectomy at that time, did not receive chemotherapy or any radiation. He previously had an appendicitis requiring drainage and was found to have E. coli as well as Streptococcus anginosus at that time. He presented to [facility] Emergency Room on the with complaints of abdominal pain, shortness of air, generalized weakness, states it has been going on for about 2 months, but worsened over the last week. 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 Chest x-ray showed diffuse interstitial infiltrates. His white blood cell count was 1.6 at presentation with 19% bands. He subsequently tested positive for COVID on 03/31/2020. He was admitted to the hospital and was started on Solu-Medrol and Zosyn starting on 04/02/2020. His white blood cell count on the dropped to 1.6. Currently, the patient was lying in bed. He awakened without complications, although he is hard of hearing. He states he is feeling some better. Denies any gross fevers, chills, sweats. He has no headaches. No gross shortness of air. He is on oxygen. He did have some diarrhea prior to this, but this has improved. He did not lose his sense of taste or smell. He has had no complications passing his urine. He denies any outdoor activities. Denies any exposure, any ticks or any bug bites. PAST MEDICAL HISTORY: Positive for COPD, asthma, obstructive sleep apnea, hiatal hernia, ventral hernia, morbid obesity, constipation, gastroesophageal reflux disease, right kidney cancer, osteoarthritis, right lower extremity fracture, type 2 diabetes, MRSA, history of abdominal abscess status post CT drainage with cultures positive for E. coli and strep back in 2014 and also has a history of acute renal failure. PAST SURGICAL HISTORY: Positive for cholecystectomy, appendectomy, right nephrectomy, ventral hernia repair, left hip surgery, bone marrow biopsy. REVIEW OF SYSTEMS: Otherwise negative except what is mentioned above. ALLERGIES: LISTED ASPIRIN. SOCIAL HISTORY: No significant tobacco abuse. Denies any tick exposure. Works as a concession cashier. FAMILY HISTORY: Positive for cancer, diabetes, heart disease. CURRENT MEDICATIONS: Include Zosyn, Tylenol, albuterol, Tessalon Perles, vitamin D3, Flexeril, Colace, fluconazole, Lasix, guaifenesin, heparin, insulin, Synthroid, Solu-Medrol, Protonix, Effexor. PHYSICAL EXAMINATION: VITAL SIGNS: He is afebrile, temperature 97.6, pulse 46, respirations 18, blood pressure 95/60 and 98% on 2 liters. CONSTITUTIONAL: He is , sleeping in bed, but he awakened without complications. He has got nasal cannula oxygen. HEENT: Pupils equal and reactive. He has normal conjunctivae. Oral cavity, pharynx was edentulous. NECK: Supple. Good range of motion. LUNGS: Clear to auscultation. HEART: S1, S2. ABDOMEN: Morbidly obese, soft, nontender, no guarding or rebound. EXTREMITIES: Without clubbing, cyanosis. Trace edema. SKIN: Warm to touch without signs of rash. NEUROLOGIC: He is hard of hearing, but otherwise answers questions, moves all extremities. PSYCHIATRIC: Affect is somewhat flat. LABORATORY DATA: White count was 1.6 on the ; hemoglobin 11.3, platelets of 155, neutrophils 41, lymphs were 47. Creatinine today of 2.5, glucose of 180, AST was 11, ALT 10 at presentation. Urinalysis is clean. There are no cultures. RADIOLOGY: Reviewed in history of present illness. IMPRESSION: 1. He did have fever of 100.5 yesterday morning. 2. COVID positive on 03/31. 3. Leukopenia, questionable virus. Denies tick exposure. He does have history of renal cell cancer. 4. Acute kidney injury. 5, Again, history of renal cell carcinoma in 2015. No chemoradiation. RECOMMENDATIONS: For now, continue Zosyn. We will add CBC with diff this morning, procalcitonin as well as LFTs and follow up labs in the morning. Follow up on cultures. Thank you for allowing me to participate in the patient's care. If you have any questions, please do not hesitate to contact me. KALLIE MORALES MD DR: EFRAIN/telly JOB#: [id number] / [id number] MIKEY
--- NOTE | 2020-04-03 11:27 | EKG ---
[facility] [address] [place] [address] Test Date: 2020-03-31 Test Time: 12:49:25 Pat Name: IGLESIA MAYNARD Department: Room: Gender: M Termite Treater: : 1960 Requested By: TAYLOR CHRISTIE Order Number: [id number] Reading MD: Measurements Intervals Preemption Rate: P: CO: QRS: QRSD: T: QT: QTc: Interpretive Statements
--- NOTE | 2020-04-03 11:28 | PDOC ---
[employer] PROGRESS NOTE Chief Complaint Chief Complaint Hypokalemia; Elevated Cr; Leukopenia; Pui History of Present Illness History of Present Illness 04/03/2020 Pt resting with NAD Chart reviewed Discussed with RN Discussed with Dr. Curran \04/02/2020 Patient seen and examined Charts reviewed Discussed with RN Nausea, vomiting, diarrhea -IV antiemetics, follow-up stool culture. Shortness of breath - with abnormal CXR and COPD history has been tested for COVID 19. On heparin. Will f/u results Hypokalemia - likely from GI losses, will replace, check mag and phos. Consult nephrology given his solitary kidney status. Normally he sees Dr. Sher Leukopenia - on Abilify which is a new medication for him, he does not know why he is on it but with his circumferential thoughts it is likely for primary mood disorder. I will consult psychiatry for assistance in assessing king on this med and for alternatives he has previously been on Geodon. FRANKO on CKD - likely vasomotor nephropathy from vomiting and diarrhea. Given IVF relief Chronic obstructive pulmonary disease - will give inhalers to avoid aerosolizition Obstructive sleep apnea - not currently on CPAP Obesity - counseled on weight loss Constipation Gastroesophageal reflux disease Right kidney cancer - s/p right nephrectomy Osteoarthritis Type 2 diabetes - sliding scale Anemia - likely of chronic renal disease Mood disorder - patient does not know his meds or his pharmacy. External med history reveals recent fills of abilify and venlafaxine. Hold abilify. Consult psych Vitals/I&O Vitals/I&O: Vital Signs Date Time Temp Pulse Resp B/P (MAP) Pulse Ox O2 Delivery O2 Flow Rate FiO2 04/03/20 10:35 97.1 59 16 114/63 (80) 93 Nasal Cannula 2.0 97.1 I & O 04/02/20 04/02/20 04/03/20 15:00 23:00 07:00 Intake Total 120 ml Output Total 600 ml 0 ml Balance 120 ml -600 ml 0 ml Physical Exam General: No acute distress Heart: Regular rate, Normal S1, Normal S2 Lungs: Clear, Other Abdomen: Normal bowel sounds, Soft, No hepatosplenomegaly, No masses, Other (LLQ tender) Extremities: No clubbing, No cyanosis, No edema, Normal pulses, No tenderness/swelling Skin: No rashes, No breakdown, No significant lesion Labs Labs: Laboratory Tests Test 04/02/20 16:55 04/02/20 19:44 04/03/20 04:08 04/03/20 08:05 Glucose (Fingerstick) 94 mg/dL (70-99) 115 mg/dL (70-99) 180 mg/dL (70-99) Sodium Level 135 mmol/L (136-145) Potassium Level 3.5 mmol/L (3.5-5.1) Chloride Level 101 mmol/L (98-107) Carbon Dioxide Level 27 mmol/L (21-32) Anion Gap 7 (6-14) Blood Urea Nitrogen 15 mg/dL (8-26) Creatinine 2.5 mg/dL (0.7-1.3) Estimated GFR (Cockcroft-Gault) 26.6 Glucose Level 187 mg/dL (70-99) Calcium Level 7.4 mg/dL (8.5-10.1) Phosphorus Level 2.5 mg/dL (2.6-4.7) Magnesium Level 2.2 mg/dL (1.8-2.4) Assessment and Plan Assessmemt and Plan Problems Medical Problems: (1) Elevated serum creatinine Status: Acute (2) Hypokalemia Status: Acute (3) Leukopenia Status: Acut COVID-19 Psych issues Nausea, vomiting, diarrhea -IV antiemetics, follow-up stool culture. Shortness of breath - with abnormal CXR and COPD Hypokalemia - likely from GI losses, will replace, check mag and phos. Discussed with production operations inspector Dr. Curran Leukopenia - on Abilify which is a new medication for him, he does not know why he is on it but with his circumferential thoughts it is likely for primary mood disorder. Psych following Acute kidney injury Chronic obstructive pulmonary disease - will give inhalers to avoid aerosolizition Obstructive sleep apnea - not currently on CPAP Obesity - counseled on weight loss Constipation Gastroesophageal reflux disease Right kidney cancer - s/p right nephrectomy Osteoarthritis Type 2 diabetes - sliding scale Anemia - likely of chronic renal disease Mood disorder - patient does not know his meds or his pharmacy. External med history reveals recent fills of abilify and venlafaxine. Hold abilify. Consult psych Home meds DVT prophylaxis Full code Appreciate subspecialist input Will recheck labs Comment Review of Relevant I have reviewed the following items chasidy (where applicable) has been applied. Medications: Current Medications Medications (Trade) Dose Ordered Sig/Dangelo Route PRN Reason Start Time Stop Time Status Last Admin Dose Admin Furosemide (Lasix) 40 mg BID92 PO 04/02/20 14:00 04/03/20 08:40 Potassium Phosphate 13.6 mmol/Sodium Chloride 254.5333 ml @ 127.... Q2H IV 04/02/20 13:00 04/02/20 16:59 DC 04/02/20 15:00 Magnesium Sulfate 50 ml @ 25 mls/hr 1X ONCE IV 04/02/20 13:00 04/02/20 14:59 DC 04/02/20 14:39 Piperacillin Sod/ Tazobactam Sod 3.375 gm/Sodium Chloride 50 ml @ 100 mls/hr Q6HRS IV 04/02/20 18:00 04/03/20 06:04 Methylprednisolone Sodium Succinate (SOLU-Medrol 40MG VIAL) 60 mg Q8HRS IV 04/02/20 20:00 04/03/20 06:05 Justicifation of Admission Dx: Justifications for Admission: Justification of Admission Dx: Yes CHF: Sev. Electrolyte Abnormal Acute Renal Failure: 3-Fold Rise in Serum Crea CHANTELL ANTHONY III DO Apr 03, 2020 11:28
--- NOTE | 2020-04-03 11:43 | PDOC ---
PULMONARY PROGRESS NOTES Subjective no increase soa Vitals Vital Signs Date Time Temp Pulse Resp B/P (MAP) Pulse Ox O2 Delivery O2 Flow Rate FiO2 04/03/20 10:35 97.1 59 16 114/63 (80) 93 Nasal Cannula 2.0 97.1 General: Alert, No acute distress Lungs: Clear Cardiovascular: S1, S2 Abdomen: Soft, Other Extremities: Other (1=edema) Labs Laboratory Tests Test 04/01/20 16:33 04/01/20 21:31 04/02/20 07:15 04/02/20 07:44 Glucose (Fingerstick) 89 mg/dL (70-99) 107 mg/dL (70-99) 89 mg/dL (70-99) White Blood Count 1.6 x10^3/uL (4.0-11.0) Red Blood Count 4.35 x10^6/uL (4.30-5.70) Hemoglobin 11.3 g/dL (13.0-17.5) Hematocrit 34.3 % (39.0-53.0) Mean Corpuscular Volume 79 fL (79-100) Mean Corpuscular Hemoglobin 26 pg (25-35) Mean Corpuscular Hemoglobin Concent 33 g/dL (31-37) Red Cell Distribution Width 16.5 % (11.5-14.5) Platelet Count 155 x10^3/uL (140-400) Neutrophils (%) (Auto) 41 % (31-73) Lymphocytes (%) (Auto) 47 % (24-48) Monocytes (%) (Auto) 11 % (0-9) Eosinophils (%) (Auto) 1 % (0-3) Basophils (%) (Auto) 0 % (0-3) Neutrophils # (Auto) 0.7 x10^3/uL (1.8-7.7) Lymphocytes # (Auto) 0.8 x10^3/uL (1.0-4.8) Monocytes # (Auto) 0.2 x10^3/uL (0.0-1.1) Eosinophils # (Auto) 0.0 x10^3/uL (0.0-0.7) Basophils # (Auto) 0.0 x10^3/uL (0.0-0.2) Sodium Level 135 mmol/L (136-145) Potassium Level 2.9 mmol/L (3.5-5.1) Chloride Level 99 mmol/L (98-107) Carbon Dioxide Level 26 mmol/L (21-32) Anion Gap 10 (6-14) Blood Urea Nitrogen 11 mg/dL (8-26) Creatinine 2.1 mg/dL (0.7-1.3) Estimated GFR (Cockcroft-Gault) 32.5 Glucose Level 92 mg/dL (70-99) Calcium Level 7.3 mg/dL (8.5-10.1) Phosphorus Level 2.0 mg/dL (2.6-4.7) Magnesium Level 1.7 mg/dL (1.8-2.4) Test 04/02/20 10:30 04/02/20 16:55 04/02/20 19:44 04/03/20 04:08 Glucose (Fingerstick) 99 mg/dL (70-99) 94 mg/dL (70-99) 115 mg/dL (70-99) Sodium Level 135 mmol/L (136-145) Potassium Level 3.5 mmol/L (3.5-5.1) Chloride Level 101 mmol/L (98-107) Carbon Dioxide Level 27 mmol/L (21-32) Anion Gap 7 (6-14) Blood Urea Nitrogen 15 mg/dL (8-26) Creatinine 2.5 mg/dL (0.7-1.3) Estimated GFR (Cockcroft-Gault) 26.6 Glucose Level 187 mg/dL (70-99) Calcium Level 7.4 mg/dL (8.5-10.1) Phosphorus Level 2.5 mg/dL (2.6-4.7) Magnesium Level 2.2 mg/dL (1.8-2.4) Test 04/03/20 08:05 Glucose (Fingerstick) 180 mg/dL (70-99) Laboratory Tests Test 04/02/20 16:55 04/02/20 19:44 04/03/20 04:08 04/03/20 08:05 Glucose (Fingerstick) 94 mg/dL (70-99) 115 mg/dL (70-99) 180 mg/dL (70-99) Sodium Level 135 mmol/L (136-145) Potassium Level 3.5 mmol/L (3.5-5.1) Chloride Level 101 mmol/L (98-107) Carbon Dioxide Level 27 mmol/L (21-32) Anion Gap 7 (6-14) Blood Urea Nitrogen 15 mg/dL (8-26) Creatinine 2.5 mg/dL (0.7-1.3) Estimated GFR (Cockcroft-Gault) 26.6 Glucose Level 187 mg/dL (70-99) Calcium Level 7.4 mg/dL (8.5-10.1) Phosphorus Level 2.5 mg/dL (2.6-4.7) Magnesium Level 2.2 mg/dL (1.8-2.4) Medications Active Scripts Medications Dose Route/Sig Max Daily Dose Days Date Category Losartan Potassium 50 Mg Tablet 50 Mg PO DAILY 04/01/20 Reported Omeprazole 40 Mg Capsule.dr 40 Mg PO DAILY 04/01/20 Reported Levothyroxine Sodium 75 Mcg Tablet 75 Mcg PO DAILY06 04/01/20 Reported Citalopram Hbr (Citalopram Hydrobromide) 20 Mg Tablet 20 Mg PO DAILY 04/01/20 Reported Aripiprazole 10 Mg Tablet 10 Mg PO BID 04/01/20 Reported Benzonatate 100 Mg Capsule 1 Cap PO TID 07/16/17 Reported Polyethylene Glycol 3350 17 Gm Powd.pack 17 Gm PO PRN DAILY PRN 30 07/16/17 Rx Senexon-S Tablet (Sennosides/Docusate Sodium) 1 Each Tablet 1 Each PO QHS 07/13/17 Reported Venlafaxine Hcl 75 Mg Tablet 1 Tab PO BID 07/13/17 Reported Abilify (Aripiprazole) 10 Mg Tablet 10 Mg PO DAILY 07/13/17 Reported Fluticasone Propionate Nasal [place] (Fluticasone Propionate) 16 Gm [place].susp 2 [place] NS BID 07/13/17 Reported Thera M Plus Tablet (Multivits,Ca,Minerals/Iron/FA) 1 Each Tablet 1 Each PO DAILY 09/17/15 Reported Move It Along (Docusate Sodium) 100 Mg Tablet 100 Mg PO 09/17/15 Reported Cyclobenzaprine Hcl 10 Mg Tablet 1 Tab PO PRN Q6HRS PRN 09/17/15 Reported Vitamin D3 (Cholecalciferol (Vitamin D3)) 1,000 Unit Tablet 1 Tab PO DAILY 09/17/15 Reported Celebrex (Celecoxib) 200 Mg Capsule 200 Mg PO BID 30 09/17/15 Reported Tylenol (Acetaminophen) 325 Mg Tablet 1-2 Tab PO PRN Q4HRS PRN 09/17/15 Reported Impression . 1. Acute hypoxic respiratory failure secondary to COVID-19 pneumonia. 2. Leukopenia secondary to viral pneumonia. 3. Acute kidney injury. Likely due to COVID-19 infection. 4. Abnormal chest x-ray consistent with interstitial pneumonia related to COVID-19. 5. Hypokalemia. Plan . 1. Continue present oxygen at 2 liters to keep saturation 92 and above. 2. Empiric antibiotics. 3. Monitor the course of the disease. We will watch for any worsening hypoxia. 4. May consider remdesivir. 5. If clinically deteriorates, then we will consider anti-IL-6 treatment with tocilizumab. 6. Antidepressants per Psychiatry. 7. Monitor renal function closely. The patient has a history of right nephrectomy. Follow renal rec 8. IV steroids 8. Discussed with RN. MARTELL ALBRIGHT MD Apr 03, 2020 11:43
--- NOTE | 2020-04-03 11:47 | PDOC ---
Renal-Progress Notes Subjective Notes Notes NO NEW COMPLAINTS History of Present Illness Hx of present illness STABLE Vitals Vitals Vital Signs Date Time Temp Pulse Resp B/P (MAP) Pulse Ox O2 Delivery O2 Flow Rate FiO2 04/03/20 10:35 97.1 59 16 114/63 (80) 93 Nasal Cannula 2.0 97.1 Weight Weight [ ] I.O. Intake and Output Intake and Output 04/03/20 06:59 Intake Total 120 ml Output Total 600 ml Balance -480 ml Intake Oral 120 ml Output Urine Total 600 ml # Voids 3 Labs Labs Laboratory Tests Test 04/02/20 16:55 04/02/20 19:44 04/03/20 04:08 04/03/20 08:05 Glucose (Fingerstick) 94 mg/dL (70-99) 115 mg/dL (70-99) 180 mg/dL (70-99) Sodium Level 135 mmol/L (136-145) Potassium Level 3.5 mmol/L (3.5-5.1) Chloride Level 101 mmol/L (98-107) Carbon Dioxide Level 27 mmol/L (21-32) Anion Gap 7 (6-14) Blood Urea Nitrogen 15 mg/dL (8-26) Creatinine 2.5 mg/dL (0.7-1.3) Estimated GFR (Cockcroft-Gault) 26.6 Glucose Level 187 mg/dL (70-99) Calcium Level 7.4 mg/dL (8.5-10.1) Phosphorus Level 2.5 mg/dL (2.6-4.7) Magnesium Level 2.2 mg/dL (1.8-2.4) Review of Systems Constitutional: yes: alert, oriented Ears/Nose/Throat: Yes: no symptom reported Eyes: Yes: no symptom reported Pulmonary: Yes no symptom reported Cardiovascular: Yes edema Gastrointestional: Yes: constipation Genitourinary: Yes: no symptom reported Musculoskeletal: Yes: no symptom reported Skin: Yes no symptom reported Psychiatric/Neurological: Yes: no symptom reported Physical Exam General Appearance: no apparent distress Skin: warm Respiratory: decreased breath sounds Heart: S1S2 Abdomen: soft, bowel sounds present Genitourinary: bladder flat Extremities: edema Neurology: alert Assessment Assessment IMP [id number] AT BASELINE HX OF R RCCA AND NEPHRECTOMY CKD STAGE 4-CR AT BASELINE NOW OF 2.1 HYPOKALEMIA-BETTER LOW MAG AND LOW PO4-BETTER DYSPNEA OBESITY/BRANDIE COPD HX DM II NON COMPLIANCE PLAN REPLACE K, MG AND PO4 NEEDED CONT LASIX ENC COMPLIANCE D/W ATTENDING MAX HE MD Apr 03, 2020 11:47
[2020-04-03 12:47] LABS: BASO % 0 % (0-3); EOS % 0 % (0-3); HEMATOCRIT 35.5 % (39.0-53.0); HEMOGLOBIN 11.6 g/dL (13.0-17.5); LYMPH # 0.3 x10^3/uL (1.0-4.8); LYMPH % 38 % (24-48); MEAN CORPUSCULAR HEMOGLOBIN 26 pg (25-35); MEAN CORPUSCULAR HGB CONC 33 g/dL (31-37); MEAN CORPUSCULAR VOLUME 79 fL (79-100); MONO % 4 % (0-9); NEUT # 0.5 x10^3/uL (1.8-7.7); NEUT % 58 % (31-73); PLATELET COUNT 149 x10^3/uL (140-400); RED BLOOD COUNT 4.48 x10^6/uL (4.30-5.70); RED CELL DISTRIBUTION WIDTH 16.5 % (11.5-14.5)
[2020-04-03 12:50] LABS: ALBUMIN 2.9 g/dL (3.4-5.0); DIRECT BILIRUBIN 0.2 mg/dL (0.0-0.2); TOTAL BILIRUBIN 0.5 mg/dL (0.2-1.0); TOTAL PROTEIN 7.8 g/dL (6.4-8.2)
[2020-04-03] MEDS: POTASSIUM PHOS,M-BASIC-D-BASIC 10 MMOL in IV NORMAL SALINE 100ML 100 ML IV SCH ×2 (12:50→14:36)
[2020-04-03 12:51] LABS: WHITE BLOOD COUNT 0.8 x10^3/uL (4.0-11.0)
[2020-04-03 14:46] VITALS: BP 126/85
--- NOTE | 2020-04-03 15:00 | PDOC2 ---
CONSULT Date of Consult Date of Consult DATE: 04/03/20 TIME: 14:51 Reason for Consult Reason for Consult: Neutropenia and lymphopenia Referring Physician Referring Physician: Dr. Luque Identification/Chief Complaint Chief Complaint Mr. Deras is a 60-year-old male who has been admitted to the hospital for further care after presenting with shortness of breath. He has been found to have COVID-19 infection. He is currently undergoing supportive care for acute hypoxic respiratory failure secondary to COVID-19 pneumonia. Pulmonology has been following and Dr. Harman has seen the patient today. Mr. Kellogg had a prev iously normal WBC count and his hospital labs have shown gradually worsening lymphopenia and neutropenia. We have been consulted in view of these changes Problems: (1) Neutropenia (2) Lymphopenia associated with COVID-19 Source Source: Chart review, Patient Past Medical History Pulmonary: Asthma GI: GERD Endocrine: Diabetes Past Surgical History Past Surgical History: Appendectomy, Cholecystectomy, Hernia Repair, Other (Right nephrectomy) Family History Family History: Cancer, Diabetes, Heart Disease Social History <1 pack per day ALCOHOL: none Drugs: None Lives: with Family Current Problem List Problem List Problems Medical Problems: (1) Elevated serum creatinine Status: Acute (2) Hypokalemia Status: Acute (3) Leukopenia Status: Acute Current Medications Current Medications Current Medications Albuterol/ Ipratropium (Duoneb) 3 ml 1X ONCE NEB Last administered on 03/31/20at 11:13; Start 03/31/20 at 10:45; Stop 03/31/20 at 10:46; Status DC Potassium Chloride (Klor-Con) 40 meq 1X ONCE PO Last administered on 03/31/20at 14:27; Start 03/31/20 at 13:00; Stop 03/31/20 at 13:01; Status DC Sodium Chloride 1,000 ml @ 30 mls/hr 1X ONCE IV Last administered on 03/31/20at 14:27; Start 03/31/20 at 13:30; Stop 04/01/20 at 17:26; Status DC Ondansetron HCl (Zofran) 4 mg PRN Q4HRS PRN IV NAUSEA/VOMITING; Start 03/31/20 at 13:30 Zolpidem Tartrate (Ambien) 5 mg PRN QHS PRN PO INSOMNIA; Start 03/31/20 at 13:30 Acetaminophen (Tylenol) 650 mg PRN Q4HRS PRN PO TEMP OVER 100.4F OR MILD PAIN Last administered on 04/02/20at 08:59; Start 03/31/20 at 13:30 Docusate Sodium (Colace) 100 mg PRN BID PRN PO HARD STOOLS; Start 03/31/20 at 13:30 Albuterol Sulfate (Ventolin Neb Soln) 2.5 mg PRN Q4HRS PRN NEB SHORTNESS OF BREATH; Start 03/31/20 at 13:30 Guaifenesin (Robitussin) 200 mg PRN Q4HRS PRN PO COUGH; Start 03/31/20 at 13:30 Lorazepam (Ativan) 0.5 mg PRN Q4HRS PRN PO ANXIETY / AGITATION; Start 03/31/20 at 13:30 Acetaminophen (Tylenol) 650 mg PRN Q4HRS PRN PO PAIN; Start 03/31/20 at 13:30; Status Cancel Benzonatate (Tessalon Perle) 100 mg TID PO Last administered on 04/03/20at 13:52; Start 03/31/20 at 14:00 Vitamin D (Vitamin D3) 1,000 unit DAILY PO Last administered on 04/03/20at 08:40; Start 04/01/20 at 09:00 Cyclobenzaprine HCl (Flexeril) 10 mg PRN Q6HRS PRN PO MUSCLE SPASMS; Start 03/31/20 at 13:30 Fluticasone Propionate (Flonase) 2 spray BID NS Last administered on 04/03/20at 10:07; Start 03/31/20 at 21:00 Levothyroxine Sodium (Synthroid) 50 mcg DAILY PO ; Start 04/01/20 at 09:00; Stop 04/01/20 at 11:04; Status DC Losartan Potassium (Cozaar) 50 mg DAILY PO ; Start 04/01/20 at 09:00; Stop 04/01/20 at 13:09; Status DC Multivitamins (Thera M Plus) 1 tab DAILY PO Last administered on 04/03/20at 08:40; Start 04/01/20 at 09:00 Polyethylene Glycol (miraLAX PACKET) 17 gm PRN DAILY PRN PO CONSTIPATION; Start 03/31/20 at 13:30 Senna/Docusate Sodium (Senna Plus) 1 tab QHS PO Last administered on 04/02/20at 21:54; Start 03/31/20 at 21:00 Venlafaxine HCl (Effexor) 75 mg BID PO Last administered on 04/03/20at 08:40; Start 03/31/20 at 21:00 Aripiprazole (Abilify) 5 mg DAILY PO ; Start 04/01/20 at 09:00; Stop 03/31/20 at 14:36; Status DC Celecoxib (CeleBREX) 200 mg BID PO Last administered on 03/31/20at 21:32; Start 03/31/20 at 21:00; Stop 04/01/20 at 11:03; Status DC Pantoprazole Sodium (Protonix) 40 mg DAILYAC PO Last administered on 04/03/20at 08:40; Start 04/01/20 at 07:30 Potassium Chloride (Klor-Con) 40 meq Q2H PO Last administered on 03/31/20at 15:58; Start 03/31/20 at 13:45; Stop 03/31/20 at 15:46; Status DC Aripiprazole (Abilify) 10 mg DAILY PO ; Start 04/01/20 at 09:00; Stop 04/01/20 at 12:56; Status DC Levothyroxine Sodium (Synthroid) 75 mcg DAILY06 PO Last administered on 04/03/20at 06:03; Start 04/02/20 at 06:00 Insulin Human Lispro (HumaLOG) 0-7 UNITS TIDACHC SQ Last administered on 04/03/20at 11:18; Start 04/01/20 at 16:30 Dextrose (Dextrose 50%-Water Syringe) 12.5 gm PRN Q15MIN PRN IV SEE COMMENTS; Start 04/01/20 at 13:15 Heparin Sodium (Porcine) (Heparin Sodium) 5,000 unit Q8HRS SQ Last administered on 04/03/20at 13:53; Start 04/01/20 at 14:00 Potassium Chloride (Klor-Con) 40 meq 1X ONCE PO Last administered on 04/02/20at 10:06; Start 04/02/20 at 09:45; Stop 04/02/20 at 09:46; Status DC Furosemide (Lasix) 40 mg BID92 PO Last administered on 04/03/20at 13:52; Start 04/02/20 at 14:00 Potassium Phosphate 13.6 mmol/Sodium Chloride 254.5333 ml @ 127.... Q2H IV Last administered on 04/02/20at 15:00; Start 04/02/20 at 13:00; Stop 04/02/20 at 16:59; Status DC Magnesium Sulfate 50 ml @ 25 mls/hr 1X ONCE IV Last administered on 04/02/20at 14:39; Start 04/02/20 at 13:00; Stop 04/02/20 at 14:59; Status DC Piperacillin Sod/ Tazobactam Sod (Zosyn Per Pharmacy) 1 each PRN DAILY PRN MC SEE COMMENTS; Start 04/02/20 at 17:30 Piperacillin Sod/ Tazobactam Sod 3.375 gm/Sodium Chloride 50 ml @ 100 mls/hr Q6HRS IV Last administered on 04/03/20at 12:50; Start 04/02/20 at 18:00 Methylprednisolone Sodium Succinate (SOLU-Medrol 40MG VIAL) 60 mg Q8HRS IV Last administered on 04/03/20at 13:52; Start 04/02/20 at 20:00 Potassium Phosphate 10 mmol/ Sodium Chloride 103.3333 ml @ 51.667 m... Q2H IV Last administered on 04/03/20at 14:36; Start 04/03/20 at 12:30; Stop 04/03/20 at 16:29 Active Scripts Active Polyethylene Glycol 3350 17 Gm Powd.pack 17 Gm PO PRN DAILY PRN 30 Days Reported Losartan Potassium 50 Mg Tablet 50 Mg PO DAILY 90 Days Omeprazole 40 Mg Capsule.dr 40 Mg PO DAILY 90 Days Levothyroxine Sodium 75 Mcg Tablet 75 Mcg PO DAILY06 90 Days Citalopram Hbr (Citalopram Hydrobromide) 20 Mg Tablet 20 Mg PO DAILY 90 Days Aripiprazole 10 Mg Tablet 10 Mg PO BID 90 Days Benzonatate 100 Mg Capsule 1 Cap PO TID [place]-S Tablet (Sennosides/Docusate Sodium) 1 Each Tablet 1 Each PO QHS Venlafaxine Hcl 75 Mg Tablet 1 Tab PO BID Abilify (Aripiprazole) 10 Mg Tablet 10 Mg PO DAILY Fluticasone Propionate Nasal [place] (Fluticasone Propionate) 16 Gm [place].susp 2 [place] NS BID Thera M Plus Tablet (Multivits,Ca,Minerals/Iron/FA) 1 Each Tablet 1 Each PO DAILY Move It Along (Docusate Sodium) 100 Mg Tablet 100 Mg PO Cyclobenzaprine Hcl 10 Mg Tablet 1 Tab PO PRN Q6HRS PRN Vitamin D3 (Cholecalciferol (Vitamin D3)) 1,000 Unit Tablet 1 Tab PO DAILY Celebrex (Celecoxib) 200 Mg Capsule 200 Mg PO BID 30 Days Tylenol (Acetaminophen) 325 Mg Tablet 1-2 Tab PO PRN Q4HRS PRN Allergies Allergies: Coded Allergies: I S O L A T I O N *CONTACT* (Verified Allergy, Unknown, 09/13/15) mrsa + aspirin (Unverified Adverse Reaction, Intermediate, stomach upset, 09/13/15) ROS General: YES: Chills PSYCHOLOGICAL ROS: No: Anxiety, Behavioral Disorder Eyes: No Blurry vision HEENT: No: Oral lesions ALLERGY AND IMMUNOLOGY: No: Nasal Congestion Hematological and Lymphatic: No: Bleeding Problems, Blood Clots Respiratory: YES: Cough, Shortness of breath; No: Hemoptysis Cardiovascular: No Chest Pain, No Palpitations Gastrointestinal: No Nausea, No Vomiting, No Abdominal Pain Genitourinary: No Dysuria, No Flank Pain Musculoskeletal: No Joint Pain Neurological: No Behavorial Changes Skin: No Dry Skin, No Rash Physical Exam General: Alert, Oriented X3 HEENT: Atraumatic Lungs: Clear to auscultation Heart: Regular rate Abdomen: Soft Extremities: No clubbing Skin: No rashes Neuro: Other (No grossly evident focal neurologic deficits) MUSCULOSKELETAL: No joint tenderness Vitals VITALS Vital Signs Date Time Temp Pulse Resp B/P (MAP) Pulse Ox O2 Delivery O2 Flow Rate FiO2 04/03/20 14:46 97.2 62 16 126/85 (99) 93 Nasal Cannula 3.0 97.2 Labs Labs Laboratory Tests Test 04/01/20 16:33 04/01/20 21:31 04/02/20 07:15 04/02/20 07:44 Glucose (Fingerstick) 89 mg/dL (70-99) 107 mg/dL (70-99) 89 mg/dL (70-99) White Blood Count 1.6 x10^3/uL (4.0-11.0) Red Blood Count 4.35 x10^6/uL (4.30-5.70) Hemoglobin 11.3 g/dL (13.0-17.5) Hematocrit 34.3 % (39.0-53.0) Mean Corpuscular Volume 79 fL (79-100) Mean Corpuscular Hemoglobin 26 pg (25-35) Mean Corpuscular Hemoglobin Concent 33 g/dL (31-37) Red Cell Distribution Width 16.5 % (11.5-14.5) Platelet Count 155 x10^3/uL (140-400) Neutrophils (%) (Auto) 41 % (31-73) Lymphocytes (%) (Auto) 47 % (24-48) Monocytes (%) (Auto) 11 % (0-9) Eosinophils (%) (Auto) 1 % (0-3) Basophils (%) (Auto) 0 % (0-3) Neutrophils # (Auto) 0.7 x10^3/uL (1.8-7.7) Lymphocytes # (Auto) 0.8 x10^3/uL (1.0-4.8) Monocytes # (Auto) 0.2 x10^3/uL (0.0-1.1) Eosinophils # (Auto) 0.0 x10^3/uL (0.0-0.7) Basophils # (Auto) 0.0 x10^3/uL (0.0-0.2) Sodium Level 135 mmol/L (136-145) Potassium Level 2.9 mmol/L (3.5-5.1) Chloride Level 99 mmol/L (98-107) Carbon Dioxide Level 26 mmol/L (21-32) Anion Gap 10 (6-14) Blood Urea Nitrogen 11 mg/dL (8-26) Creatinine 2.1 mg/dL (0.7-1.3) Estimated GFR (Cockcroft-Gault) 32.5 Glucose Level 92 mg/dL (70-99) Calcium Level 7.3 mg/dL (8.5-10.1) Phosphorus Level 2.0 mg/dL (2.6-4.7) Magnesium Level 1.7 mg/dL (1.8-2.4) Test 04/02/20 10:30 04/02/20 16:55 04/02/20 19:44 04/03/20 04:08 Glucose (Fingerstick) 99 mg/dL (70-99) 94 mg/dL (70-99) 115 mg/dL (70-99) White Blood Count 0.8 x10^3/uL (4.0-11.0) Red Blood Count 4.48 x10^6/uL (4.30-5.70) Hemoglobin 11.6 g/dL (13.0-17.5) Hematocrit 35.5 % (39.0-53.0) Mean Corpuscular Volume 79 fL (79-100) Mean Corpuscular Hemoglobin 26 pg (25-35) Mean Corpuscular Hemoglobin Concent 33 g/dL (31-37) Red Cell Distribution Width 16.5 % (11.5-14.5) Platelet Count 149 x10^3/uL (140-400) Neutrophils (%) (Auto) 58 % (31-73) Lymphocytes (%) (Auto) 38 % (24-48) Monocytes (%) (Auto) 4 % (0-9) Eosinophils (%) (Auto) 0 % (0-3) Basophils (%) (Auto) 0 % (0-3) Neutrophils # (Auto) 0.5 x10^3/uL (1.8-7.7) Lymphocytes # (Auto) 0.3 x10^3/uL (1.0-4.8) Monocytes # (Auto) 0.0 x10^3/uL (0.0-1.1) Eosinophils # (Auto) 0.0 x10^3/uL (0.0-0.7) Basophils # (Auto) 0.0 x10^3/uL (0.0-0.2) Sodium Level 135 mmol/L (136-145) Potassium Level 3.5 mmol/L (3.5-5.1) Chloride Level 101 mmol/L (98-107) Carbon Dioxide Level 27 mmol/L (21-32) Anion Gap 7 (6-14) Blood Urea Nitrogen 15 mg/dL (8-26) Creatinine 2.5 mg/dL (0.7-1.3) Estimated GFR (Cockcroft-Gault) 26.6 Glucose Level 187 mg/dL (70-99) Calcium Level 7.4 mg/dL (8.5-10.1) Phosphorus Level 2.5 mg/dL (2.6-4.7) Magnesium Level 2.2 mg/dL (1.8-2.4) Total Bilirubin 0.5 mg/dL (0.2-1.0) Direct Bilirubin 0.2 mg/dL (0.0-0.2) Aspartate Amino Transf (AST/SGOT) 19 U/L (15-37) Alanine Aminotransferase (ALT/SGPT) 14 U/L (16-63) Alkaline Phosphatase 82 U/L (46-116) Total Protein 7.8 g/dL (6.4-8.2) Albumin 2.9 g/dL (3.4-5.0) Procalcitonin < 0.10 ng/mL (0.00-0.10) Test 04/03/20 08:05 04/03/20 13:19 Glucose (Fingerstick) 180 mg/dL (70-99) 173 mg/dL (70-99) Laboratory Tests Test 04/02/20 16:55 04/02/20 19:44 04/03/20 04:08 04/03/20 08:05 Glucose (Fingerstick) 94 mg/dL (70-99) 115 mg/dL (70-99) 180 mg/dL (70-99) White Blood Count 0.8 x10^3/uL (4.0-11.0) Red Blood Count 4.48 x10^6/uL (4.30-5.70) Hemoglobin 11.6 g/dL (13.0-17.5) Hematocrit 35.5 % (39.0-53.0) Mean Corpuscular Volume 79 fL (79-100) Mean Corpuscular Hemoglobin 26 pg (25-35) Mean Corpuscular Hemoglobin Concent 33 g/dL (31-37) Red Cell Distribution Width 16.5 % (11.5-14.5) Platelet Count 149 x10^3/uL (140-400) Neutrophils (%) (Auto) 58 % (31-73) Lymphocytes (%) (Auto) 38 % (24-48) Monocytes (%) (Auto) 4 % (0-9) Eosinophils (%) (Auto) 0 % (0-3) Basophils (%) (Auto) 0 % (0-3) Neutrophils # (Auto) 0.5 x10^3/uL (1.8-7.7) Lymphocytes # (Auto) 0.3 x10^3/uL (1.0-4.8) Monocytes # (Auto) 0.0 x10^3/uL (0.0-1.1) Eosinophils # (Auto) 0.0 x10^3/uL (0.0-0.7) Basophils # (Auto) 0.0 x10^3/uL (0.0-0.2) Sodium Level 135 mmol/L (136-145) Potassium Level 3.5 mmol/L (3.5-5.1) Chloride Level 101 mmol/L (98-107) Carbon Dioxide Level 27 mmol/L (21-32) Anion Gap 7 (6-14) Blood Urea Nitrogen 15 mg/dL (8-26) Creatinine 2.5 mg/dL (0.7-1.3) Estimated GFR (Cockcroft-Gault) 26.6 Glucose Level 187 mg/dL (70-99) Calcium Level 7.4 mg/dL (8.5-10.1) Phosphorus Level 2.5 mg/dL (2.6-4.7) Magnesium Level 2.2 mg/dL (1.8-2.4) Total Bilirubin 0.5 mg/dL (0.2-1.0) Direct Bilirubin 0.2 mg/dL (0.0-0.2) Aspartate Amino Transf (AST/SGOT) 19 U/L (15-37) Alanine Aminotransferase (ALT/SGPT) 14 U/L (16-63) Alkaline Phosphatase 82 U/L (46-116) Total Protein 7.8 g/dL (6.4-8.2) Albumin 2.9 g/dL (3.4-5.0) Procalcitonin < 0.10 ng/mL (0.00-0.10) Test 04/03/20 13:19 Glucose (Fingerstick) 173 mg/dL (70-99) Images Images Assessment: Neutropenia Lymphopenia Acute hypoxic respiratory failure COVID19 pneumonia DM2 Hx of renal cell carcinoma s/p nephrectomy Recommendations: -Suspect that lymphopenia is likely secondary to COVID19 infection given known association ( Clinical Characteristics of Coronavirus Disease 2019 in [place]. N Engl J Med 2020; [id number]) -Neutropenia is acute. Differential includes COVID19 vs reactive to acute illness vs drug-related from Zosyn -Recommend peripheral smear, B12 level -Would consider an alternative antibiotic for prophylaxis. Defer to pulmonary/ID/hospitalist regarding choice of agent but Levaquin may be reasonable alternative if pneumonoccal coverage is desired. Thank you for the consult. Bairon Nava MD Hem Onc TESSA NAVA MD Apr 03, 2020 14:57
--- NOTE | 2020-04-03 16:17 | NUR ---
SW following. Spoke with RN and reviewed chart. Pt from home with home 02. Pt currently on 3l 02 and IV Zosyn. WBC is 0.8. Pt not ready for discharge. SW to follow.
[2020-04-03 19:20] VITALS: BP 118/77
[2020-04-03] MEDS: SENNOSIDES/DOCUSATE 8.6/50MG TABLET. PO SCH (20:49)
[2020-04-03 23:47] VITALS: BP 140/78
[2020-04-04] MEDS: PIPERACILLIN/TAZOBACTAM 3.375 GM in IV NORMAL SALINE 50ML 50 ML IV SCH ×2 (00:29→05:42)
[2020-04-04 05:10] LABS: BASO % 0 % (0-3); EOS % 0 % (0-3); HEMATOCRIT 35.6 % (39.0-53.0); HEMOGLOBIN 11.9 g/dL (13.0-17.5); LYMPH # 0.4 x10^3/uL (1.0-4.8); LYMPH % 10 % (24-48); MEAN CORPUSCULAR HEMOGLOBIN 26 pg (25-35); MEAN CORPUSCULAR HGB CONC 34 g/dL (31-37); MEAN CORPUSCULAR VOLUME 78 fL (79-100); MONO # 0.1 x10^3/uL (0.0-1.1); MONO % 3 % (0-9); NEUT # 3.5 x10^3/uL (1.8-7.7); NEUT % 87 % (31-73); PLATELET COUNT 182 x10^3/uL (140-400); RED BLOOD COUNT 4.55 x10^6/uL (4.30-5.70); RED CELL DISTRIBUTION WIDTH 16.6 % (11.5-14.5)
[2020-04-04 05:40] LABS: CALCIUM 7.3 mg/dL (8.5-10.1); CREATININE 2.6 mg/dL (0.7-1.3); GFR 25.4; MAGNESIUM 1.8 mg/dL (1.8-2.4); POTASSIUM 3.3 mmol/L (3.5-5.1)
[2020-04-04] MEDS: methylPREDNISolone SOD SUCC PF 40 MG/ML VIAL. IV SCH (05:40)
[2020-04-04] MEDS: LEVOTHYROXINE 75 MCG TABLET PO SCH (05:40)
[2020-04-04] MEDS: HEPARIN for SUB-Q USE 5,000 UNIT/ML VIAL. SQ SCH (05:44)
[2020-04-04 07:12] VITALS: BP 107/69
[2020-04-04] MEDS: INSULIN LISPRO 300 UNITS/3 ML VIAL. SQ SCH ×2 (07:30→11:30)
--- NOTE | 2020-04-04 07:48 | PDOC ---
Infectious Disease Note Subjective Subjective Better and wanting to go home No F/C/S/N/v/SOA/rash occ loose stoo ROS ROS o/w neg Vital Sign Vital Signs Vital Signs Date Time Temp Pulse Resp B/P (MAP) Pulse Ox O2 Delivery O2 Flow Rate FiO2 04/04/20 02:52 53 97 Nasal Cannula 3.0 04/03/20 23:47 96.9 16 140/78 (98) 96.9 Physical Exam PHYSICAL EXAM CONSTITUTIONAL: He is ambualting in his room, He is currently off 02. looks well and in NAD HEENT: Pupils equal and reactive. He has normal conjunctivae. Oral cavity, pharynx was edentulous. NECK: Supple. Good range of motion. LUNGS: Clear to auscultation. HEART: S1, S2. ABDOMEN: Morbidly obese, soft, nontender, no guarding or rebound. EXTREMITIES: Without clubbing, cyanosis. Trace edema. SKIN: Warm to touch without signs of rash. NEUROLOGIC: He is hard of hearing, but otherwise answers questions, moves all extremities. PSYCHIATRIC: Affect is somewhat flat Labs Lab Laboratory Tests Test 04/03/20 08:05 04/03/20 13:19 04/03/20 17:27 04/03/20 20:54 Glucose (Fingerstick) 180 mg/dL (70-99) 173 mg/dL (70-99) 176 mg/dL (70-99) 198 mg/dL (70-99) Test 04/04/20 04:25 04/04/20 07:26 White Blood Count 4.0 x10^3/uL (4.0-11.0) Red Blood Count 4.55 x10^6/uL (4.30-5.70) Hemoglobin 11.9 g/dL (13.0-17.5) Hematocrit 35.6 % (39.0-53.0) Mean Corpuscular Volume 78 fL (79-100) Mean Corpuscular Hemoglobin 26 pg (25-35) Mean Corpuscular Hemoglobin Concent 34 g/dL (31-37) Red Cell Distribution Width 16.6 % (11.5-14.5) Platelet Count 182 x10^3/uL (140-400) Neutrophils (%) (Auto) 87 % (31-73) Lymphocytes (%) (Auto) 10 % (24-48) Monocytes (%) (Auto) 3 % (0-9) Eosinophils (%) (Auto) 0 % (0-3) Basophils (%) (Auto) 0 % (0-3) Neutrophils # (Auto) 3.5 x10^3/uL (1.8-7.7) Lymphocytes # (Auto) 0.4 x10^3/uL (1.0-4.8) Monocytes # (Auto) 0.1 x10^3/uL (0.0-1.1) Eosinophils # (Auto) 0.0 x10^3/uL (0.0-0.7) Basophils # (Auto) 0.0 x10^3/uL (0.0-0.2) Sodium Level 137 mmol/L (136-145) Potassium Level 3.3 mmol/L (3.5-5.1) Chloride Level 100 mmol/L (98-107) Carbon Dioxide Level 28 mmol/L (21-32) Anion Gap 9 (6-14) Blood Urea Nitrogen 21 mg/dL (8-26) Creatinine 2.6 mg/dL (0.7-1.3) Estimated GFR (Cockcroft-Gault) 25.4 Glucose Level 168 mg/dL (70-99) Calcium Level 7.3 mg/dL (8.5-10.1) Phosphorus Level 3.0 mg/dL (2.6-4.7) Magnesium Level 1.8 mg/dL (1.8-2.4) Glucose (Fingerstick) 148 mg/dL (70-99) Objective Assessment Fever- better ? viral - procal normal COVID + 03/31 Steroids started 04/02. LFTs not elevated Leukopenia - better- ? viral- denies tick exposure - does have h/o Renal Ca Cancer FRANKO -stable h/o Renal Cell CA 2015 at - no chemo or XRT Plan Plan of Care D/c Zosyn begin Augmentin for 5 days Steroids per Pulm ID to sign off D/w Nursing KALLIE MORALES MD Apr 04, 2020 07:48
[2020-04-04] MEDS ORDERED: AMOXICILLIN/K CLAV 500/125MG TABLET. PO SCH (09:00)
--- NOTE | 2020-04-04 09:13 | PDOC ---
[employer] PROGRESS NOTE Chief Complaint Chief Complaint Hypokalemia; Elevated Cr; Leukopenia; Pui History of Present Illness History of Present Illness Patient is seen and examined. Resting with NAD Chart reviewed Patient is off nasal cannula Discussed with RN 04/03/2020 Pt resting with NAD Chart reviewed Discussed with RN Discussed with Dr. Curran 04/02/2020 Patient seen and examined Charts reviewed Discussed with RN Nausea, vomiting, diarrhea -IV antiemetics, follow-up stool culture. Shortness of breath - with abnormal CXR and COPD history has been tested for COVID 19. On heparin. Will f/u results Hypokalemia - likely from GI losses, will replace, check mag and phos. Consult nephrology given his solitary kidney status. Normally he sees Dr. Sher Leukopenia - on Abilify which is a new medication for him, he does not know why he is on it but with his circumferential thoughts it is likely for primary mood disorder. I will consult psychiatry for assistance in assessing king on this med and for alternatives he has previously been on Geodon. FRANKO on CKD - likely vasomotor nephropathy from vomiting and diarrhea. Given IVF relief Chronic obstructive pulmonary disease - will give inhalers to avoid aerosolizition Obstructive sleep apnea - not currently on CPAP Obesity - counseled on weight loss Constipation Gastroesophageal reflux disease Right kidney cancer - s/p right nephrectomy Osteoarthritis Type 2 diabetes - sliding scale Anemia - likely of chronic renal disease Mood disorder - patient does not know his meds or his pharmacy. External med history reveals recent fills of abilify and venlafaxine. Hold abilify. Consult psych Vitals/I&O Vitals/I&O: Vital Signs Date Time Temp Pulse Resp B/P (MAP) Pulse Ox O2 Delivery O2 Flow Rate FiO2 04/04/20 07:12 96.6 58 18 107/69 (82) 96 Room Air 96.6 04/04/20 02:52 3.0 I & O 04/03/20 04/03/20 04/04/20 15:00 23:00 07:00 Intake Total 2000 ml 500 ml Output Total 350 ml 1150 ml 350 ml Balance 1650 ml -650 ml -350 ml Physical Exam Physical Exam: CONSTITUTIONAL: He is ambualting in his room, He is currently off 02. looks well and in NAD HEENT: Pupils equal and reactive. He has normal conjunctivae. Oral cavity, pharynx was edentulous. NECK: Supple. Good range of motion. LUNGS: Clear to auscultation. HEART: S1, S2. ABDOMEN: Morbidly obese, soft, nontender, no guarding or rebound. EXTREMITIES: Without clubbing, cyanosis. Trace edema. SKIN: Warm to touch without signs of rash. NEUROLOGIC: He is hard of hearing, but otherwise answers questions, moves all extremities. PSYCHIATRIC: Affect is somewhat flat General: Alert, Oriented X3, Other (Patient feels weak) Heart: Regular rate Lungs: Clear Abdomen: Soft Extremities: No clubbing Skin: No rashes Labs Labs: Laboratory Tests Test 04/03/20 13:19 04/03/20 17:27 04/03/20 20:54 04/04/20 04:25 Glucose (Fingerstick) 173 mg/dL (70-99) 176 mg/dL (70-99) 198 mg/dL (70-99) White Blood Count 4.0 x10^3/uL (4.0-11.0) Red Blood Count 4.55 x10^6/uL (4.30-5.70) Hemoglobin 11.9 g/dL (13.0-17.5) Hematocrit 35.6 % (39.0-53.0) Mean Corpuscular Volume 78 fL (79-100) Mean Corpuscular Hemoglobin 26 pg (25-35) Mean Corpuscular Hemoglobin Concent 34 g/dL (31-37) Red Cell Distribution Width 16.6 % (11.5-14.5) Platelet Count 182 x10^3/uL (140-400) Neutrophils (%) (Auto) 87 % (31-73) Lymphocytes (%) (Auto) 10 % (24-48) Monocytes (%) (Auto) 3 % (0-9) Eosinophils (%) (Auto) 0 % (0-3) Basophils (%) (Auto) 0 % (0-3) Neutrophils # (Auto) 3.5 x10^3/uL (1.8-7.7) Lymphocytes # (Auto) 0.4 x10^3/uL (1.0-4.8) Monocytes # (Auto) 0.1 x10^3/uL (0.0-1.1) Eosinophils # (Auto) 0.0 x10^3/uL (0.0-0.7) Basophils # (Auto) 0.0 x10^3/uL (0.0-0.2) Sodium Level 137 mmol/L (136-145) Potassium Level 3.3 mmol/L (3.5-5.1) Chloride Level 100 mmol/L (98-107) Carbon Dioxide Level 28 mmol/L (21-32) Anion Gap 9 (6-14) Blood Urea Nitrogen 21 mg/dL (8-26) Creatinine 2.6 mg/dL (0.7-1.3) Estimated GFR (Cockcroft-Gault) 25.4 Glucose Level 168 mg/dL (70-99) Calcium Level 7.3 mg/dL (8.5-10.1) Phosphorus Level 3.0 mg/dL (2.6-4.7) Magnesium Level 1.8 mg/dL (1.8-2.4) Test 04/04/20 07:26 Glucose (Fingerstick) 148 mg/dL (70-99) Assessment and Plan Assessmemt and Plan Problems Medical Problems: (1) Elevated serum creatinine Status: Acute (2) Hypokalemia Status: Acute (3) Leukopenia Status: Acute Assessment Nausea, vomiting, diarrhea -IV antiemetics, follow-up stool culture. Shortness of breath - with abnormal CXR and COPD history has been tested for COVID 19. On heparin. Will f/u results Hypokalemia - likely from GI losses, will replace, check mag and phos. Consult nephrology given his solitary kidney status. Normally he sees Dr. Sher Leukopenia - on Abilify which is a new medication for him, he does not know why he is on it but with his circumferential thoughts it is likely for primary mood disorder. I will consult psychiatry for assistance in assessing king on this med and for alternatives he has previously been on Geodon. FRANKO on CKD - likely vasomotor nephropathy from vomiting and diarrhea. Given IVF relief Chronic obstructive pulmonary disease - will give inhalers to avoid aerosolizition Obstructive sleep apnea - not currently on CPAP Obesity - counseled on weight loss Constipation Gastroesophageal reflux disease Right kidney cancer - s/p right nephrectomy Osteoarthritis Type 2 diabetes - sliding scale Anemia - likely of chronic renal disease Mood disorder - patient does not know his meds or his pharmacy. External med history reveals recent fills of abilify and venlafaxine. Hold abilify. Consult psych Plan Change antibiotic per request of Infectious Diseases Monitor for patient O2 saturation at room air CIPAP/BIPAP as needed IV steroid per request by Pulmonology Full Code Trend Labs DVT prophylaxis Comment Review of Relevant I have reviewed the following items chasidy (where applicable) has been applied. Medications: Current Medications Medications (Trade) Dose Ordered Sig/Dangelo Route PRN Reason Start Time Stop Time Status Last Admin Dose Admin Potassium Phosphate 10 mmol/ Sodium Chloride 103.3333 ml @ 51.667 m... Q2H IV 04/03/20 12:30 04/03/20 16:29 DC 04/03/20 14:36 Justicifation of Admission Dx: Justifications for Admission: Justification of Admission Dx: Yes CHF: Sev. Electrolyte Abnormal Acute Renal Failure: 3-Fold Rise in Serum Crea CHANTELL ANTHONY III DO Apr 04, 2020 09:13
[2020-04-04] MEDS: BENZONATATE 100 MG CAPSULE. PO SCH (09:45)
[2020-04-04] MEDS: CHOLECALCIFEROL (VITAMIN D3) 1,000 UNIT TABLET PO SCH (09:45)
[2020-04-04] MEDS: MULTIVITAMIN with MINERAL TABLET. PO SCH (09:45)
[2020-04-04] MEDS: FUROSEMIDE 40 MG TABLET. PO SCH (09:46)
[2020-04-04] MEDS: VENLAFAXINE 75 MG TABLET. PO SCH (09:46)
[2020-04-04] MEDS: PANTOPRAZOLE 40 MG TABLET.DR. PO SCH (09:46)
[2020-04-04] MEDS: FLUTICASONE 50MCG/NASAL SPRAY 16GM BOTTLE. NS SCH (10:02)
--- NOTE | 2020-04-04 10:17 | PDOC ---
Renal-Progress Notes Subjective Notes Notes NO NEW COMPLAINTS History of Present Illness Hx of present illness STABLE Vitals Vitals Vital Signs Date Time Temp Pulse Resp B/P (MAP) Pulse Ox O2 Delivery O2 Flow Rate FiO2 04/04/20 07:12 96.6 58 18 107/69 (82) 96 Room Air 96.6 04/04/20 02:52 3.0 Weight Weight [ ] I.O. Intake and Output Intake and Output 04/04/20 07:00 Intake Total 2500 ml Output Total 1850 ml Balance 650 ml Intake Oral 2500 ml Output Urine Total 1850 ml Labs Labs Laboratory Tests Test 04/03/20 13:19 04/03/20 17:27 04/03/20 20:54 04/04/20 04:25 Glucose (Fingerstick) 173 mg/dL (70-99) 176 mg/dL (70-99) 198 mg/dL (70-99) White Blood Count 4.0 x10^3/uL (4.0-11.0) Red Blood Count 4.55 x10^6/uL (4.30-5.70) Hemoglobin 11.9 g/dL (13.0-17.5) Hematocrit 35.6 % (39.0-53.0) Mean Corpuscular Volume 78 fL (79-100) Mean Corpuscular Hemoglobin 26 pg (25-35) Mean Corpuscular Hemoglobin Concent 34 g/dL (31-37) Red Cell Distribution Width 16.6 % (11.5-14.5) Platelet Count 182 x10^3/uL (140-400) Neutrophils (%) (Auto) 87 % (31-73) Lymphocytes (%) (Auto) 10 % (24-48) Monocytes (%) (Auto) 3 % (0-9) Eosinophils (%) (Auto) 0 % (0-3) Basophils (%) (Auto) 0 % (0-3) Neutrophils # (Auto) 3.5 x10^3/uL (1.8-7.7) Lymphocytes # (Auto) 0.4 x10^3/uL (1.0-4.8) Monocytes # (Auto) 0.1 x10^3/uL (0.0-1.1) Eosinophils # (Auto) 0.0 x10^3/uL (0.0-0.7) Basophils # (Auto) 0.0 x10^3/uL (0.0-0.2) Sodium Level 137 mmol/L (136-145) Potassium Level 3.3 mmol/L (3.5-5.1) Chloride Level 100 mmol/L (98-107) Carbon Dioxide Level 28 mmol/L (21-32) Anion Gap 9 (6-14) Blood Urea Nitrogen 21 mg/dL (8-26) Creatinine 2.6 mg/dL (0.7-1.3) Estimated GFR (Cockcroft-Gault) 25.4 Glucose Level 168 mg/dL (70-99) Calcium Level 7.3 mg/dL (8.5-10.1) Phosphorus Level 3.0 mg/dL (2.6-4.7) Magnesium Level 1.8 mg/dL (1.8-2.4) Test 04/04/20 07:26 Glucose (Fingerstick) 148 mg/dL (70-99) Review of Systems Constitutional: yes: alert, oriented Ears/Nose/Throat: Yes: no symptom reported Eyes: Yes: no symptom reported Pulmonary: Yes no symptom reported Cardiovascular: Yes edema Gastrointestional: Yes: constipation Genitourinary: Yes: no symptom reported Musculoskeletal: Yes: no symptom reported Skin: Yes no symptom reported Psychiatric/Neurological: Yes: no symptom reported Physical Exam General Appearance: no apparent distress Skin: warm Respiratory: decreased breath sounds Heart: S1S2 Abdomen: soft, bowel sounds present Genitourinary: bladder flat Extremities: edema Neurology: alert Assessment Assessment IMP [id number] AT BASELINE HX OF R RCCA AND NEPHRECTOMY CKD STAGE 4-CR AT BASELINE NOW HYPOKALEMIA-BETTER LOW MAG AND LOW PO4-BETTER DYSPNEA OBESITY/BRANDIE COPD HX DM II NON COMPLIANCE PLAN REPLACE K, MG AND PO4 NEEDED CONT LASIX ENC COMPLIANCE D/W ATTENDING MAX HE MD Apr 04, 2020 10:17
[2020-04-04] MEDS ORDERED: POTASSIUM CHLORIDE 20 MEQ TABLET.ER. PO ONE (11:00)
[2020-04-04 11:10] VITALS: BP 113/65
--- NOTE | 2020-04-04 11:37 | PDOC ---
PULMONARY PROGRESS NOTES Subjective no increase soa Vitals Vital Signs Date Time Temp Pulse Resp B/P (MAP) Pulse Ox O2 Delivery O2 Flow Rate FiO2 04/04/20 08:00 Nasal Cannula 2.0 04/04/20 07:12 96.6 58 18 107/69 (82) 96 96.6 General: Alert, No acute distress Lungs: Clear Cardiovascular: S1, S2 Abdomen: Soft, Other Extremities: Other (1=edema) Labs Laboratory Tests Test 04/02/20 16:55 04/02/20 19:44 04/03/20 04:08 04/03/20 08:05 Glucose (Fingerstick) 94 mg/dL (70-99) 115 mg/dL (70-99) 180 mg/dL (70-99) White Blood Count 0.8 x10^3/uL (4.0-11.0) Red Blood Count 4.48 x10^6/uL (4.30-5.70) Hemoglobin 11.6 g/dL (13.0-17.5) Hematocrit 35.5 % (39.0-53.0) Mean Corpuscular Volume 79 fL (79-100) Mean Corpuscular Hemoglobin 26 pg (25-35) Mean Corpuscular Hemoglobin Concent 33 g/dL (31-37) Red Cell Distribution Width 16.5 % (11.5-14.5) Platelet Count 149 x10^3/uL (140-400) Neutrophils (%) (Auto) 58 % (31-73) Lymphocytes (%) (Auto) 38 % (24-48) Monocytes (%) (Auto) 4 % (0-9) Eosinophils (%) (Auto) 0 % (0-3) Basophils (%) (Auto) 0 % (0-3) Neutrophils # (Auto) 0.5 x10^3/uL (1.8-7.7) Lymphocytes # (Auto) 0.3 x10^3/uL (1.0-4.8) Monocytes # (Auto) 0.0 x10^3/uL (0.0-1.1) Eosinophils # (Auto) 0.0 x10^3/uL (0.0-0.7) Basophils # (Auto) 0.0 x10^3/uL (0.0-0.2) Sodium Level 135 mmol/L (136-145) Potassium Level 3.5 mmol/L (3.5-5.1) Chloride Level 101 mmol/L (98-107) Carbon Dioxide Level 27 mmol/L (21-32) Anion Gap 7 (6-14) Blood Urea Nitrogen 15 mg/dL (8-26) Creatinine 2.5 mg/dL (0.7-1.3) Estimated GFR (Cockcroft-Gault) 26.6 Glucose Level 187 mg/dL (70-99) Calcium Level 7.4 mg/dL (8.5-10.1) Phosphorus Level 2.5 mg/dL (2.6-4.7) Magnesium Level 2.2 mg/dL (1.8-2.4) Total Bilirubin 0.5 mg/dL (0.2-1.0) Direct Bilirubin 0.2 mg/dL (0.0-0.2) Aspartate Amino Transf (AST/SGOT) 19 U/L (15-37) Alanine Aminotransferase (ALT/SGPT) 14 U/L (16-63) Alkaline Phosphatase 82 U/L (46-116) Total Protein 7.8 g/dL (6.4-8.2) Albumin 2.9 g/dL (3.4-5.0) Procalcitonin < 0.10 ng/mL (0.00-0.10) Test 04/03/20 13:19 04/03/20 17:27 04/03/20 20:54 04/04/20 04:25 Glucose (Fingerstick) 173 mg/dL (70-99) 176 mg/dL (70-99) 198 mg/dL (70-99) White Blood Count 4.0 x10^3/uL (4.0-11.0) Red Blood Count 4.55 x10^6/uL (4.30-5.70) Hemoglobin 11.9 g/dL (13.0-17.5) Hematocrit 35.6 % (39.0-53.0) Mean Corpuscular Volume 78 fL (79-100) Mean Corpuscular Hemoglobin 26 pg (25-35) Mean Corpuscular Hemoglobin Concent 34 g/dL (31-37) Red Cell Distribution Width 16.6 % (11.5-14.5) Platelet Count 182 x10^3/uL (140-400) Neutrophils (%) (Auto) 87 % (31-73) Lymphocytes (%) (Auto) 10 % (24-48) Monocytes (%) (Auto) 3 % (0-9) Eosinophils (%) (Auto) 0 % (0-3) Basophils (%) (Auto) 0 % (0-3) Neutrophils # (Auto) 3.5 x10^3/uL (1.8-7.7) Lymphocytes # (Auto) 0.4 x10^3/uL (1.0-4.8) Monocytes # (Auto) 0.1 x10^3/uL (0.0-1.1) Eosinophils # (Auto) 0.0 x10^3/uL (0.0-0.7) Basophils # (Auto) 0.0 x10^3/uL (0.0-0.2) Sodium Level 137 mmol/L (136-145) Potassium Level 3.3 mmol/L (3.5-5.1) Chloride Level 100 mmol/L (98-107) Carbon Dioxide Level 28 mmol/L (21-32) Anion Gap 9 (6-14) Blood Urea Nitrogen 21 mg/dL (8-26) Creatinine 2.6 mg/dL (0.7-1.3) Estimated GFR (Cockcroft-Gault) 25.4 Glucose Level 168 mg/dL (70-99) Calcium Level 7.3 mg/dL (8.5-10.1) Phosphorus Level 3.0 mg/dL (2.6-4.7) Magnesium Level 1.8 mg/dL (1.8-2.4) Test 04/04/20 07:26 Glucose (Fingerstick) 148 mg/dL (70-99) Laboratory Tests Test 04/03/20 13:19 04/03/20 17:27 04/03/20 20:54 04/04/20 04:25 Glucose (Fingerstick) 173 mg/dL (70-99) 176 mg/dL (70-99) 198 mg/dL (70-99) White Blood Count 4.0 x10^3/uL (4.0-11.0) Red Blood Count 4.55 x10^6/uL (4.30-5.70) Hemoglobin 11.9 g/dL (13.0-17.5) Hematocrit 35.6 % (39.0-53.0) Mean Corpuscular Volume 78 fL (79-100) Mean Corpuscular Hemoglobin 26 pg (25-35) Mean Corpuscular Hemoglobin Concent 34 g/dL (31-37) Red Cell Distribution Width 16.6 % (11.5-14.5) Platelet Count 182 x10^3/uL (140-400) Neutrophils (%) (Auto) 87 % (31-73) Lymphocytes (%) (Auto) 10 % (24-48) Monocytes (%) (Auto) 3 % (0-9) Eosinophils (%) (Auto) 0 % (0-3) Basophils (%) (Auto) 0 % (0-3) Neutrophils # (Auto) 3.5 x10^3/uL (1.8-7.7) Lymphocytes # (Auto) 0.4 x10^3/uL (1.0-4.8) Monocytes # (Auto) 0.1 x10^3/uL (0.0-1.1) Eosinophils # (Auto) 0.0 x10^3/uL (0.0-0.7) Basophils # (Auto) 0.0 x10^3/uL (0.0-0.2) Sodium Level 137 mmol/L (136-145) Potassium Level 3.3 mmol/L (3.5-5.1) Chloride Level 100 mmol/L (98-107) Carbon Dioxide Level 28 mmol/L (21-32) Anion Gap 9 (6-14) Blood Urea Nitrogen 21 mg/dL (8-26) Creatinine 2.6 mg/dL (0.7-1.3) Estimated GFR (Cockcroft-Gault) 25.4 Glucose Level 168 mg/dL (70-99) Calcium Level 7.3 mg/dL (8.5-10.1) Phosphorus Level 3.0 mg/dL (2.6-4.7) Magnesium Level 1.8 mg/dL (1.8-2.4) Test 04/04/20 07:26 Glucose (Fingerstick) 148 mg/dL (70-99) Medications Active Scripts Medications Dose Route/Sig Max Daily Dose Days Date Category Losartan Potassium 50 Mg Tablet 50 Mg PO DAILY 04/01/20 Reported Omeprazole 40 Mg Capsule.dr 40 Mg PO DAILY 04/01/20 Reported Levothyroxine Sodium 75 Mcg Tablet 75 Mcg PO DAILY06 04/01/20 Reported Citalopram Hbr (Citalopram Hydrobromide) 20 Mg Tablet 20 Mg PO DAILY 04/01/20 Reported Aripiprazole 10 Mg Tablet 10 Mg PO BID 90 04/01/20 Reported Benzonatate 100 Mg Capsule 1 Cap PO TID 07/16/17 Reported Polyethylene Glycol 3350 17 Gm Powd.pack 17 Gm PO PRN DAILY PRN 30 07/16/17 Rx Senexon-S Tablet (Sennosides/Docusate Sodium) 1 Each Tablet 1 Each PO QHS 07/13/17 Reported Venlafaxine Hcl 75 Mg Tablet 1 Tab PO BID 07/13/17 Reported Abilify (Aripiprazole) 10 Mg Tablet 10 Mg PO DAILY 07/13/17 Reported Fluticasone Propionate Nasal Haslet (Fluticasone Propionate) 16 Gm Haslet.susp 2 Haslet NS BID 07/13/17 Reported Thera M Plus Tablet (Multivits,Ca,Minerals/Iron/FA) 1 Each Tablet 1 Each PO DAILY 09/17/15 Reported Move It Along (Docusate Sodium) 100 Mg Tablet 100 Mg PO 09/17/15 Reported Cyclobenzaprine Hcl 10 Mg Tablet 1 Tab PO PRN Q6HRS PRN 09/17/15 Reported Vitamin D3 (Cholecalciferol (Vitamin D3)) 1,000 Unit Tablet 1 Tab PO DAILY 09/17/15 Reported Celebrex (Celecoxib) 200 Mg Capsule 200 Mg PO BID 30 09/17/15 Reported Tylenol (Acetaminophen) 325 Mg Tablet 1-2 Tab PO PRN Q4HRS PRN 09/17/15 Reported Impression . 1. Acute hypoxic respiratory failure secondary to COVID-19 pneumonia. 2. Leukopenia secondary to viral pneumonia. 3. Acute kidney injury. Likely due to COVID-19 infection. 4. Abnormal chest x-ray consistent with interstitial pneumonia related to COVID-19. 5. Hypokalemia. Plan . 1. Continue present oxygen at 2 liters to keep saturation 92 and above. 2. Empiric antibiotics. 3. WBC normal 4. clinically better 5. ok with dc home on PO steroid taper 6. Antidepressants per Psychiatry. . Discussed with RN. MARTELL ALBRIGHT MD Apr 04, 2020 11:37
[2020-04-04] MEDS ORDERED: PRED-220 PO (14:06)
--- NOTE | 2020-04-04 15:01 | NUR ---
PRESCRIPTION CALLED INTO [facility] FOR PREDISONE 10MG TAKE 3 TABS DAILY FOR 2 DAYS THEN 2 TABS DAILY FOR 2 DAYS THE 1 TAB DAILY X [address] ALBRIGHT.
--- NOTE | 2020-04-04 16:37 | NUR ---
SW following. Spoke with RN and reviewed chart. Pt to discharge home today on oral medications. Pt has 02 at home. No further SW needs at this time.
--- NOTE | 2020-05-01 13:12 | DS ---
DATE OF DISCHARGE: 04/04/2020 ADMISSION DIAGNOSES: Respiratory failure, hypokalemia, nausea, vomiting, diarrhea, leukopenia, acute kidney injury and chronic obstructive pulmonary disease. DISCHARGE DIAGNOSES: Resolving respiratory failure, resolving hypokalemia, nausea, vomiting and diarrhea resolving. Resolving leukopenia, resolving acute kidney injury, chronic obstructive pulmonary disease, obstructive sleep apnea, obesity, constipation, gastroesophageal reflux disease, right kidney cancer with history of nephrectomy, osteoarthritis, diabetes, anemia and mood disorder. CONSULTS: Infectious Disease, Pulmonary Medicine, Nephrology and Oncology. PROCEDURES: None. HOSPITAL COURSE: The patient is a pleasant middle-aged male, who presented with respiratory failure, hypokalemia and acute kidney injury. The patient was admitted. The above consults were obtained. We gave him IV antibiotics and IV fluids, breathing treatments and oxygen. Over the next few days, the patient returned to his baseline. We discharged home on steroid taper. DISPOSITION: Home. ACTIVITY: As tolerated. DIET: Low sodium. MEDICATIONS: Please see the MRAD. TOTAL TIME: 32 minutes. CHANTELL ANTHONY DO DR: VANESSA/telly JOB#: [id number] / [id number]
== END 2020-04-04 15:07 | disposition home or self-care (01) | DRG 177 ==
LOC: ER 09:48 → 6 SOUTH 14:20 → OBSVTOIN 04-01 12:54
PROVIDERS: ADMIT Internal Medicine; ATTEND Internal Medicine
DX: U07.1 COVID-19 (principal); J96.01 Acute respiratory failure with hypoxia; J12.89 Other viral pneumonia; C64.1 Malignant neoplasm of right kidney, except renal pelvis; F05 Delirium due to known physiological condition; F33.1 Major depressive disorder, recurrent, moderate; J44.0 Chronic obstructive pulmonary disease with (acute) lower respiratory infection; N18.4 Chronic kidney disease, stage 4 (severe); N17.9 Acute kidney failure, unspecified; D63.1 Anemia in chronic kidney disease; D70.9 Neutropenia, unspecified; E11.22 Type 2 diabetes mellitus with diabetic chronic kidney disease; E87.6 Hypokalemia; F17.210 Nicotine dependence, cigarettes, uncomplicated; F41.9 Anxiety disorder, unspecified; G47.33 Obstructive sleep apnea (adult) (pediatric); H91.90 Unspecified hearing loss, unspecified ear; I50.9 Heart failure, unspecified; K21.9 Gastro-esophageal reflux disease without esophagitis; K59.00 Constipation, unspecified; M19.90 Unspecified osteoarthritis, unspecified site; Z83.3 Family history of diabetes mellitus; Z85.528 Personal history of other malignant neoplasm of kidney; Z90.5 Acquired absence of kidney; Z91.19 Patient's noncompliance with other medical treatment and regimen; E66.01 Morbid (severe) obesity due to excess calories; Z68.38 Body mass index [BMI] 38.0-38.9, adult
CPT/HCPCS: 36415; 71045; 80048; 80053; 80076; 81001; 82728; 82962; 83615; 83735; 84100; 84145; 84484; 85007; 85025; 86140; 93005; 94640; 96360; 99285; G0378; G0379; J1644; J1815; J2543; J2920; J3475; J3490; J7030; J7050; U0003-CS

== ENCOUNTER 2021-09-15 16:33 | Emergency (ER) | payer MEDICARE ==
[~2021-09-15] VITALS: Ht 188 cm; Wt 120.2 kg
[~2021-09-15 16:33] MED LIST changes: +ARIP10TA55 PO; +CITA20TA6 PO; +CYCL10TA19 PO; -CYCL10TA2 PO; +LEVO75TA5 PO; +LOSA50TA15 PO; +OMEP40CA7 PO; -POLY17PO28 PO; +POLY17PO52 PO; +PRED-220 PO
[2021-09-15 18:20] VITALS: BP 142/76
--- NOTE | 2021-09-15 20:12 | ED.ADGEN ---
Past Medical History Past Medical History: Asthma, Diabetes-Type II, GERD, Other Additional Past Medical Histor: Hard of Hearing. Past Surgical History: Cholecystectomy, Other Additional Past Surgical Histo: L LEG, R NEPHRECTOMY Smoking Status: Former Smoker Alcohol Use: None Drug Use: None General Adult EDM: Chief Complaint: ABDOMINAL PAIN HPI: HPI: Patient is a 61 year old male coming in for 2 weeks of bilateral low back pain that radiates to his lower stomach. Patient says the pain is sharp and has been worse today where it was unbearable. Has not followed up with his primary care provider. He states he has been taking hydrocodone that he usually takes for his peripheral neuropathy. Denies any change in bowel or bladder function, hematuria, denies any worsening numbness. Any history of prior heavy lifting, falls, or back injury. Review of Systems: Review of Systems: All other systems within normal limits except for as noted in the HPI Allergies: Allergies: Allergies Coded Allergies Type Severity Reaction Last Updated Verified I S O L A T I O N *CONTACT* Allergy Unknown 09/13/15 Yes aspirin Adverse Reaction Intermediate stomach upset 09/13/15 No Physical Exam: PE: Constitutional: Well developed, well nourished, no acute distress, non-toxic appearance. Morbidly obese [] HENT: Normocephalic, atraumatic, bilateral external ears normal, nose normal. [] Eyes: PERRLA, conjunctiva normal, no discharge. [] Neck: No rigidity, supple, no stridor. [] Cardiovascular: Regular rate and rhythm, brisk cap refill [] Lungs & Thorax: Non labored symmetric respirations, no tachypnea or respiratory distress [] Abdomen: Soft, nondistended. Skin: Warm, dry, no erythema, no rash. [] Back: Unremarkable, no step-off or deformity, bilateral tenderness of lower back Extremities: No deformities, range of motion grossly intact, no lower extremity edema [] Neurologic: Alert and oriented X 3, no focal deficits noted. No numbness [] Psychologic: Affect normal, judgement normal, mood normal. [] Current Patient Data: Labs: Laboratory Tests Test 09/15/21 20:32 09/15/21 22:11 White Blood Count 6.3 x10^3/uL (4.0-11.0) Red Blood Count 4.85 x10^6/uL (4.30-5.70) Hemoglobin 13.8 g/dL (13.0-17.5) Hematocrit 40.1 % (39.0-53.0) Mean Corpuscular Volume 83 fL (79-100) Mean Corpuscular Hemoglobin 28 pg (25-35) Mean Corpuscular Hemoglobin Concent 34 g/dL (31-37) Red Cell Distribution Width 15.5 % (11.5-14.5) H Platelet Count 212 x10^3/uL (140-400) Neutrophils (%) (Auto) 72 % (31-73) Lymphocytes (%) (Auto) 17 % (24-48) L Monocytes (%) (Auto) 10 % (0-9) H Eosinophils (%) (Auto) 1 % (0-3) Basophils (%) (Auto) 1 % (0-3) Neutrophils # (Auto) 4.5 x10^3/uL (1.8-7.7) Lymphocytes # (Auto) 1.0 x10^3/uL (1.0-4.8) Monocytes # (Auto) 0.6 x10^3/uL (0.0-1.1) Eosinophils # (Auto) 0.1 x10^3/uL (0.0-0.7) Basophils # (Auto) 0.0 x10^3/uL (0.0-0.2) Sodium Level 134 mmol/L (136-145) L Potassium Level 4.2 mmol/L (3.5-5.1) Chloride Level 102 mmol/L (98-107) Carbon Dioxide Level 25 mmol/L (21-32) Anion Gap 7 (6-14) Blood Urea Nitrogen 16 mg/dL (8-26) Creatinine 2.0 mg/dL (0.7-1.3) H Estimated GFR (Cockcroft-Gault) 34.3 BUN/Creatinine Ratio 8 (6-20) Glucose Level 103 mg/dL (70-99) H Calcium Level 8.3 mg/dL (8.5-10.1) L Total Bilirubin 1.1 mg/dL (0.2-1.0) H Aspartate Amino Transferase (AST) 7 U/L (15-37) L Alanine Aminotransferase (ALT) 12 U/L (16-63) L Alkaline Phosphatase 130 U/L (46-116) H Total Protein 8.5 g/dL (6.4-8.2) H Albumin 3.2 g/dL (3.4-5.0) L Albumin/Globulin Ratio 0.6 (1.0-1.7) L Lipase 265 U/L (73-393) Urine Collection Type Unknown Urine Color Yellow Urine Clarity Clear Urine pH 6.0 (<5.0-8.0) Urine Specific [place] 1.020 (1.000-1.030) Urine Protein 30 mg/dL (NEG-TRACE) Urine Glucose (UA) Negative mg/dL (NEG) Urine Ketones (Stick) Negative mg/dL (NEG) Urine Blood Negative (NEG) Urine Nitrite Negative (NEG) Urine Bilirubin Negative (NEG) Urine Urobilinogen Dipstick 1.0 mg/dL (0.2 mg/dL) Urine Leukocyte Esterase Negative (NEG) Urine RBC 0 /HPF (0-2) Urine WBC 0 /HPF (0-4) Urine Squamous Epithelial Cells None /LPF Urine Bacteria 0 /HPF (0-FEW) Urine Mucus Slight /LPF Laboratory Tests 09/15/21 20:32 Laboratory Tests 09/15/21 20:32 Vital Signs: Vital Signs Date Time Temp Pulse Resp B/P (MAP) Pulse Ox O2 Delivery O2 Flow Rate FiO2 09/15/21 18:20 98.9 89 22 142/76 (98) 96 Room Air 98.9 EKG: EKG: [] Heart Score: C/O Chest Pain: No Risk Factors: Risk Factors: DM, Current or recent (<one month) smoker, HTN, HLP, family history of CAD, obesity. Risk Scores: Score 0 - 3: 2.5% MACE over next 6 weeks - Discharge Home Score 4 - 6: 20.3% MACE over next 6 weeks - Admit for Clinical Observation Score 7 - 10: 72.7% MACE over next 6 weeks - Early Invasive Strategies Radiology/Procedures: Radiology/Procedures: [facility] [address] [place] [address] IMAGING REPORT Signed PATIENT: IGLESIA MAYNARD ACCOUNT: [id number] : 1960 LOCATION: ER AGE: 61 SEX: M EXAM STATUS: REG ER ORD. PHYSICIAN: RAMILA BRIZUELA MD REASON: back and abd pain PROCEDURE: CT CHEST ABDOMEN PELVIS WO Exam: CT of chest, abdomen and pelvis without contrast INDICATION: Back and abdominal pain TECHNIQUE: Sequential axial images through the chest, abdomen and pelvis obtained without IV contrast. Sagittal and coronal reformatted images were reconstructed from the axial data and reviewed. Exposure: One or more of the following in the visualized dose reduction techniques were utilized for this examination: 1. Automated exposure control 2. Adjustment of the MA and/or KV according to patient size 3. Use of iterative of reconstructive technique Comparisons: 07/13/2017 FINDINGS: Visualized portions of the thyroid are unremarkable. No enlarged mediastinal lymph nodes are identified. Heart is mildly enlarged. Prominent pericardial fat is noted. Thoracic aorta has normal course and caliber. Pulmonary artery is not enlarged. Airways are patent. No consolidation or pneumothorax. No suspicious lung nodules. No pleural effusion or thickening. Evaluation of the solid abdominal organs is limited secondary to noncontrast technique. Liver, spleen, pancreas and adrenals are unremarkable. Gallbladder surgically absent. No perinephric inflammation or hydronephrosis. No renal or ureteral calculi are identified. Right kidney is absent. Bladder is partially distended and not well evaluated. Prostate is not enlarged. Moderate amount of stool is noted throughout the colon. Appendix is nonidentified. No free intra-abdominal air or fluid. No obstruction. Abdominal aorta has normal course and caliber. No enlarged intra-abdominal lymph nodes are identified. No suspicious osseous lesions or acute fractures. IMPRESSION: 1. No acute process identified within the abdomen or pelvis. 2. Right nephrectomy changes are seen. Electronically signed by: Brooke Diane MD (09/15/2021 9:41 PM) [facility] DICTATED and SIGNED BY: BROOKE DIANE MD DATE: 09/15/21 [id number] [] Course & Med Decision Making: Course & Med Decision Making Pertinent Labs and Imaging studies reviewed. (See chart for details) [] Dragon Disclaimer: Dragon Disclaimer: This electronic medical record was generated, in whole or in part, using a voice recognition dictation system. Departure Departure Impression: Primary Impression: Lumbar back pain Disposition: HOME / SELF CARE / HOMELESS Condition: STABLE Referrals: Artemio NAJERA MD (PCP) Patient Instructions: Back Pain, Adult Scripts Cyclobenzaprine Hcl (CYCLOBENZAPRINE HCL) 10 Mg Tablet 1 TAB PO TID PRN for PAIN for 5 Days, #15 TAB Prov: RAMILA BRIZUELA MD 09/15/21 RAMILA BRIZUELA MD Sep 15, 2021 20:12
[2021-09-15 20:41] LABS: BASO % 1 % (0-3); EOS # 0.1 x10^3/uL (0.0-0.7); EOS % 1 % (0-3); HEMATOCRIT 40.1 % (39.0-53.0); HEMOGLOBIN 13.8 g/dL (13.0-17.5); LYMPH % 17 % (24-48); MEAN CORPUSCULAR HEMOGLOBIN 28 pg (25-35); MEAN CORPUSCULAR HGB CONC 34 g/dL (31-37); MEAN CORPUSCULAR VOLUME 83 fL (79-100); MONO # 0.6 x10^3/uL (0.0-1.1); MONO % 10 % (0-9); NEUT # 4.5 x10^3/uL (1.8-7.7); NEUT % 72 % (31-73); PLATELET COUNT 212 x10^3/uL (140-400); RED BLOOD COUNT 4.85 x10^6/uL (4.30-5.70); RED CELL DISTRIBUTION WIDTH 15.5 % (11.5-14.5); WHITE BLOOD COUNT 6.3 x10^3/uL (4.0-11.0)
[2021-09-15 20:51] LABS: CALCIUM 8.3 mg/dL (8.5-10.1); GFR 34.3; POTASSIUM 4.2 mmol/L (3.5-5.1)
[2021-09-15 20:57] LABS: ALBUMIN 3.2 g/dL (3.4-5.0); ALBUMIN/GLOBULIN RATIO 0.6 (1.0-1.7); TOTAL BILIRUBIN 1.1 mg/dL (0.2-1.0); TOTAL PROTEIN 8.5 g/dL (6.4-8.2)
--- NOTE | 2021-09-15 21:43 | RAD ---
Exam: CT of chest, abdomen and pelvis without contrast INDICATION: Back and abdominal pain TECHNIQUE: Sequential axial images through the chest, abdomen and pelvis obtained without IV contrast . Sagittal and coronal reformatted images were reconstructed from the axial data and reviewed. Exposure: One or more of the following in the visualized dose reduction techniques were utilized for this examination: 1. Automated exposure control 2. Adjustment of the MA and/or KV according to patient size 3. Use of iterative of reconstructive technique Comparisons: 07/13/2017 FINDINGS: Visualized portions of the thyroid are unremarkable. No enlarged mediastinal lymph nodes are identifi ed. Heart is mildly enlarged. Prominent pericardial fat is noted. Thoracic aorta has normal course and ca liber. Pulmonary artery is not enlarged. Airways are patent. No consolidation or pneumothorax. No suspicious lung nodules. No pleural effusion or thickening. Evaluation of the solid abdominal organs is limited secondary to noncontrast technique. Liver, spleen, pancreas and adrenals are unremarkable. Gallbladder surgically absent. No perinephric inflammation or hydronephrosis. No renal or ureteral calculi are identified. Right kid dipika is absent. Bladder is partially distended and not well evaluated. Prostate is not enlarged. Moderate amount of stool is noted throughout the colon. Appendix is nonidentified. No free intra-abdo estefani air or fluid. No obstruction. Abdominal aorta has normal course and caliber. No enlarged intra-abdominal lymph nodes are identified. No suspicious osseous lesions or acute fractures. IMPRESSION: 1. No acute process identified within the abdomen or pelvis. 2. Right nephrectomy changes are seen. Electronically signed by: Brooke Hanna MD (09/15/2021 9:41 PM) [facility]
[2021-09-15 22:18] LABS: BILIRUBIN,URINE NEGATIVE (NEG); CLARITY,URINE CLEAR; COLOR,URINE YELLOW; NITRITE,URINE NEGATIVE (NEG); PROTEIN,URINE 30 mg/dL (NEG-TRACE)
[2021-09-15 22:30] LABS: BACTERIA,URINE 0 /HPF (0-FEW); RBC,URINE 0 /HPF (0-2); WBC,URINE 0 /HPF (0-4)
[2021-09-15] MEDS ORDERED: CYCL10TA19 PO (22:42)
== END 2021-09-15 22:56 | disposition home or self-care (01) ==
LOC: ER 16:33
DX: M54.50 Low back pain, unspecified (principal); K21.9 Gastro-esophageal reflux disease without esophagitis; E11.9 Type 2 diabetes mellitus without complications; J45.909 Unspecified asthma, uncomplicated; Z87.891 Personal history of nicotine dependence; Z90.49 Acquired absence of other specified parts of digestive tract; Z90.5 Acquired absence of kidney; Z91.041 Radiographic dye allergy status; Z88.6 Allergy status to analgesic agent
CPT/HCPCS: 36415; 71250; 74176; 80053; 81001; 83690; 85025; 99284-25

== ENCOUNTER 2021-12-06 15:39 | Emergency (ER) | payer MEDICARE ==
[~2021-12-06] VITALS: Ht 188 cm; Wt 140.0 kg
[2021-12-06] MEDS ORDERED: IV NORMAL SALINE 1000ML BAG 1,000 ML IV ONE (16:15)
--- NOTE | 2021-12-06 16:32 | RAD ---
EXAM: CHEST 1 VIEW History: Cough COMPARISON: 03/31/2020 TECHNIQUE: Single portable radiograph of the chest FINDINGS: Mild cardiomegaly. Mild prominent bilateral interstitial lung markings likely mild congest jason changes. Mild bibasilar lung atelectasis or infiltrates. The costophrenic sulci are clear and wel l demarcated. IMPRESSION: 1.Mild congestive changes. 2. Mild bibasilar lung atelectasis or infiltrates. Electronically signed by: Elmer Brown MD (12/06/2021 4:30 PM) [id number]
--- NOTE | 2021-12-06 16:39 | PHYS DOC ---
Past Medical History Past Medical History: Asthma, Diabetes-Type II, GERD, Other Additional Past Medical Histor: Hard of Hearing. Past Surgical History: Cholecystectomy, Other Additional Past Surgical Histo: L LEG, R NEPHRECTOMY Smoking Status: Current Some Day Smoker Alcohol Use: None Drug Use: None General Adult EDM: Chief Complaint: NAUSEA/VOMITING/DIARRHEA HPI: HPI: Patient is a 61 year old male presents with intermittent nausea, vomiting, diarrhea symptoms for the past few weeks. He denies melena or hematochezia. He denies hematemesis. He denies fevers or chills. He describes generalized abdominal discomfort. He denies urinary symptoms. No recent travel, hospitalization, no recent antibiotic use. He went to his primary care doctor's office today, he was reportedly sent here for IV fluids and to be checked for Covid. He has been fully vaccinated against COVID-19, including booster. He has chronic wheezing, chronic dyspnea, this is unchanged from baseline. He has inhalers, but he is unsure where they are. He also uses an inhaled steroid, reports intermittent compliance with this. He denies chest pain. He denies cough or hemoptysis. He denies weakness. No other complaints. Review of Systems: Review of Systems: As per HPI. Heart Score: C/O Chest Pain: No Risk Factors: Risk Factors: DM, Current or recent (<one month) smoker, HTN, HLP, family history of CAD, obesity. Risk Scores: Score 0 - 3: 2.5% MACE over next 6 weeks - Discharge Home Score 4 - 6: 20.3% MACE over next 6 weeks - Admit for Clinical Observation Score 7 - 10: 72.7% MACE over next 6 weeks - Early Invasive Strategies Current Medications: Current Medications Medications (Trade) Dose Ordered Sig/Dangelo Start Time Stop Time Status Last Admin Dose Admin Sodium Chloride 1,000 ml @ 1,000 mls/hr 1X ONCE 12/06/21 16:15 12/06/21 17:14 12/06/21 16:35 1,000 MLS/HR Allergies: Allergies: Allergies Coded Allergies Type Severity Reaction Last Updated Verified I S O L A T I O N *CONTACT* Allergy Unknown 09/13/15 Yes aspirin Adverse Reaction Intermediate stomach upset 09/13/15 No Physical Exam: PE: Constitutional: Well developed, well nourished, chronically ill-appearing male, appears older than stated age, relatively disheveled, nontoxic in appearance, no acute distress HENT: Normocephalic, atraumatic, oropharynx is patent and clear, mucous membranes are moist. Eyes: PERRL, EOMI, conjunctiva normal, no discharge. No scleral icterus. Neck: Normal range of motion, no tenderness, supple, no stridor. [] Cardiovascular:Heart rate regular rhythm, +2 radial and +2 posterior tibial pulses bilaterally. Lungs & Thorax: Scattered expiratory wheezes, clear with coughing, no stridor, no tachypnea, no retractions, speaks in full and clear sentences, no respiratory distress. Abdomen: Abdomen is obese, soft, nondistended, nontender to palpation. No palpable mass organomegaly. No CVA tenderness. No flank abdominal ecchymoses. No palpable pulsatile mass. Skin: Warm, dry, no erythema, no rash. No jaundice. Skin is relatively unkempt. No open wounds. Back: No tenderness, no CVA tenderness. [] Extremities: No tenderness, no cyanosis, no clubbing, ROM intact, bilateral, symmetric 1+ lower extremity edema. No calf tenderness. Neurologic: Alert and oriented X 3, normal motor function, normal sensory function, no focal deficits noted. [] Psychologic: Affect flat, he is cooperative EKG: EKG: EKG is interpreted at 1632 Rhythm is sinus Rate is 89 bpm Rawson is left No STEMI Radiology/Procedures: Radiology/Procedures: IMAGING REPORT Signed PATIENT: IGLESIA MAYNARD ACCOUNT: [id number] : 1960 LOCATION: ER AGE: 61 SEX: M EXAM STATUS: REG ER ORD. PHYSICIAN: VANESSA LINARES DO REASON: cough PROCEDURE: PORTABLE CHEST 1V EXAM: CHEST 1 VIEW History: Cough COMPARISON: 03/31/2020 TECHNIQUE: Single portable radiograph of the chest FINDINGS: Mild cardiomegaly. Mild prominent bilateral interstitial lung markings likely mild congestive changes. Mild bibasilar lung atelectasis or infiltrates. The costophrenic sulci are clear and well demarcated. IMPRESSION: 1.Mild congestive changes. 2. Mild bibasilar lung atelectasis or infiltrates. Electronically signed by: Elmer Brown MD (12/06/2021 4:30 PM) [id number] DICTATED and SIGNED BY: ELMER BROWN MD DATE: 12/06/211625 IMAGING REPORT Signed PATIENT: IGLESIA MAYNARD ACCOUNT: [id number] : 1960 LOCATION: ER AGE: 61 SEX: M EXAM STATUS: REG ER ORD. PHYSICIAN: VANESSA LINARES DO REASON: abd pain, n/v/diarrhea PROCEDURE: CT ABDOMEN PELVIS WO CONTRAST PQRS Compliance Statement: One or more of the following individualized dose reduction techniques were utilized for this examination: 1. Automated exposure control 2. Adjustment of the mA and/or kV according to patient size 3. Use of iterative reconstruction technique CT abdomen/pelvis without contrast 12/06/2021 5:19 PM INDICATION: Abdominal pain, nausea and vomiting COMPARISON: CT chest, abdomen and pelvis 09/15/2021 TECHNIQUE: Multiple axial CT images of the abdomen and pelvis were obtained without intravenous contrast. Coronal and sagittal reformats are provided. FINDINGS: Heart size within normal limits. There is mild pulmonary vascular congestion. Calcified right hilar lymph nodes suggest sequela prior granuloma is exposure. There is a calcified granuloma in the right middle lobe measuring 9 mm. Evaluation of solid abdominal viscera is limited by lack of intravenous contrast. Liver, spleen, left adrenal gland and pancreas are normal in appearanc e. Gallbladder surgically absent. The abdominal aorta is normal in course and caliber. There are no pathologically enlarged lymph nodes in the abdomen and pelvis. There is no abdominal free fluid. There is no free intraperitoneal air. Right nephrectomy. Right adrenalectomy. Left kidney is normal in appearance. No hydronephrosis. No calculi within the left ureter or urinary bladder. Urinary bladder within normal limits given degree of distention. Prostate and seminal vesicles are normal in appearance. Small and large bowel are normal in caliber. There is no evidence for bowel obstruction. There are no pericolonic inflammatory changes. Appendix not visualized. Left hip hardware is identified. No lucency surrounding the hardware. No acute osseous abnormality. IMPRESSION: No acute abnormalities identified within the abdomen and pelvis as detailed above. Electronically signed by: Cherelle Angel MD (12/06/2021 6:18 PM) [facility] DICTATED and SIGNED BY: CHERELLE ANGEL MD DATE: 12/06/211814 Course & Med Decision Making: Course & Med Decision Making Pertinent Labs and Imaging studies reviewed. (See chart for details) Patient is given a liter of IV fluids. He declined pain medication, declined nausea medication. P.o. potassium chloride is given. He tolerated this well. I discussed the findings, differential diagnosis and plan of care with the patient. He appears stable for discharge. He is a benign, nonsurgical abdominal exam. CT imaging is unremarkable. I gave him a refill of his inhaler, he is also prescribed antiemetics for home as well. Home care and dietary instructions provided to given. Return precautions are given. Dragon Disclaimer: Dragon Disclaimer: This electronic medical record was generated, in whole or in part, using a voice recognition dictation system. Departure Departure Impression: Primary Impression: Nausea vomiting and diarrhea Additional Impression: Wheezing Disposition: 01 HOME / SELF CARE / HOMELESS Condition: STABLE Referrals: Artemio NAJERA MD (PCP) Patient Instructions: Bronchospasm, Adult, Viral Gastroenteritis Additional Instructions: Make sure to eat a bland diet, drink plenty of fluids. Use the nausea medicine as needed/as directed. Please return to the ER for severe abdominal pain, vomiting blood, blood in your stool, temperature 100.4 or higher, severe shortness of breath, severe chest pain or any other concerns. Please contact your primary care doctor for follow-up. Scripts Albuterol Sulfate (VENTOLIN HFA INHALER) 18 Gm Hfa.aer.ad 2 PUFF INH Q4HRS for FOR WHEEZING, #1 EACH 1 Refill Prov: VANESSA LINARES DO 12/06/21 Ondansetron (ONDANSETRON ODT) 4 Mg Tab.rapdis 1 TAB PO PRN Q6-8HRS for vomiting, #20 TAB Prov: VANESSA LINARES DO 12/06/21 VANESSA LINARES DO Dec 06, 2021 16:39
[2021-12-06 16:46] LABS: BASO % 1 % (0-3); CALCIUM 8.1 mg/dL (8.5-10.1); CREATININE 2.2 mg/dL (0.7-1.3); EOS # 0.1 x10^3/uL (0.0-0.7); EOS % 2 % (0-3); GFR 30.7; HEMATOCRIT 39.8 % (39.0-53.0); LYMPH # 1.7 x10^3/uL (1.0-4.8); LYMPH % 23 % (24-48); MEAN CORPUSCULAR HEMOGLOBIN 28 pg (25-35); MEAN CORPUSCULAR HGB CONC 33 g/dL (31-37); MEAN CORPUSCULAR VOLUME 85 fL (79-100); MONO # 0.6 x10^3/uL (0.0-1.1); MONO % 8 % (0-9); NEUT # 4.7 x10^3/uL (1.8-7.7); NEUT % 66 % (31-73); PLATELET COUNT 250 x10^3/uL (140-400); POTASSIUM 3.3 mmol/L (3.5-5.1); RED BLOOD COUNT 4.69 x10^6/uL (4.30-5.70); RED CELL DISTRIBUTION WIDTH 16.5 % (11.5-14.5); WHITE BLOOD COUNT 7.2 x10^3/uL (4.0-11.0)
[2021-12-06 16:58] LABS: INFLUENZA A PATIENT NEGATIVE (NEGATIVE); INFLUENZA B PATIENT NEGATIVE (NEGATIVE)
[2021-12-06 17:01] LABS: ALBUMIN 3.2 g/dL (3.4-5.0); ALBUMIN/GLOBULIN RATIO 0.6 (1.0-1.7); TOTAL BILIRUBIN 0.7 mg/dL (0.2-1.0); TOTAL PROTEIN 8.3 g/dL (6.4-8.2)
[2021-12-06 18:13] LABS: BARBITURATES NEG (NEG); BENZODIAZEPINES NEG (NEG); CANNABINOIDS NEG (NEG); COCAINE NEG (NEG); METHADONE NEG (NEG); OPIATES NEG (NEG); PHENCYCLIDINE NEG (NEG)
[2021-12-06 18:14] LABS: AMPHETAMINE/METHAMPHETAMINE NEG (NEG)
[2021-12-06 18:16] LABS: AMORPHOUS SEDIMENT,UR PRESENT /HPF; BACTERIA,URINE 0 /HPF (0-FEW); RBC,URINE 0 /HPF (0-2); WBC,URINE 0 /HPF (0-4)
--- NOTE | 2021-12-06 18:20 | RAD ---
PQRS Compliance Statement: One or more of the following individualized dose reduction techniques were utilized for this examinat ion: 1. Automated exposure control 2. Adjustment of the mA and/or kV according to patient size 3. Use of iterative reconstruction technique CT abdomen/pelvis without contrast 12/06/2021 5:19 PM INDICATION: Abdominal pain, nausea and vomiting COMPARISON: CT chest, abdomen and pelvis 09/15/2021 TECHNIQUE: Multiple axial CT images of the abdomen and pelvis were obtained without intravenous contr ast. Coronal and sagittal reformats are provided. FINDINGS: Heart size within normal limits. There is mild pulmonary vascular congestion. Calcified right hilar l ymph nodes suggest sequela prior granuloma is exposure. There is a calcified granuloma in the right m iddle lobe measuring 9 mm. Evaluation of solid abdominal viscera is limited by lack of intravenous contrast. Liver, spleen, left adrenal gland and pancreas are normal in appearance. Gallbladder surgically absent. The abdominal aorta is normal in course and caliber. There are no pathologically enlarged lymph nodes in the abdomen and pelvis. There is no abdominal free fluid. There is no free intraperitoneal air. Right nephrectomy. Right adrenalectomy. Left kidney is normal in appearance. No hydronephrosis. No ca lculi within the left ureter or urinary bladder. Urinary bladder within normal limits given degree of distention. Prostate and seminal vesicles are normal in appearance. Small and large bowel are normal in caliber. There is no evidence for bowel obstruction. There are no pericolonic inflammatory changes. Appendix not visualized. Left hip hardware is identified. No lucen cy surrounding the hardware. No acute osseous abnormality. IMPRESSION: No acute abnormalities identified within the abdomen and pelvis as detailed above. Electronically signed by: Yaquelin Still MD (12/06/2021 6:18 PM) [facility]
[2021-12-06] MEDS ORDERED: ONDA4TAB12 PO (18:32)
[2021-12-06] MEDS ORDERED: VENTOLIN HFA18 GM INH (18:33)
[2021-12-06 18:42] VITALS: BP 110/69
[2021-12-06] MEDS ORDERED: POTASSIUM CHLORIDE 10 MEQ TABLET.ER. PO ONE (19:00)
--- NOTE | 2021-12-07 17:39 | EKG ---
[facility] [address] [place] [address] Test Date: 2021-12-06 Test Time: 16:28:18 Pat Name: IGLESIA MAYNARD Department: Room: Gender: M [employer]: : 1960 Requested By: VANESSA LINARES Order Number: [id number] Reading MD: Osmany Thorne Measurements Intervals Koppel Rate: 89 P: 20 DE: 182 QRS: -26 QRSD: 88 T: 60 QT: 378 QTc: 461 Interpretive Statements SINUS RHYTHM LEFTWARD AXIS Electronically Signed On 12-07-2021 21:18:27 CDT by Osmany Thorne
== END 2021-12-06 18:54 | disposition home or self-care (01) ==
LOC: ER 15:39
DX: R11.2 Nausea with vomiting, unspecified (principal); R19.7 Diarrhea, unspecified; R10.84 Generalized abdominal pain; Z20.822 Contact with and (suspected) exposure to COVID-19; K21.9 Gastro-esophageal reflux disease without esophagitis; E11.9 Type 2 diabetes mellitus without complications; J45.909 Unspecified asthma, uncomplicated; F17.200 Nicotine dependence, unspecified, uncomplicated; Z90.49 Acquired absence of other specified parts of digestive tract; Z91.041 Radiographic dye allergy status; Z88.6 Allergy status to analgesic agent
CPT/HCPCS: 36415; 71045; 74176; 80053; 80307; 81001; 82550; 83605; 83690; 83880; 84484; 85025; 87428; 93005; 96360; 96361; 99285; J7030

== ENCOUNTER → 2021-12-30 | Outpatient (CLI) | payer MEDICARE ==
[2021-12-06 18:42] VITALS: BP 110/69
[~2021-12-30] MED LIST changes: +ONDA4TAB12 PO
--- NOTE | 2021-12-30 17:18 | KCIC ---
XR KNEE 4 VIEWS WITH PATELLA_RT History: Pain Technique: 3 views right knee Comparison: None. Findings: Mild right knee degenerative changes most prominent within the medial patellofemoral compartments. No significant joint effusion. No dislocation. No acute fracture. Impression: 1. Mild right knee DJD. Electronically signed by: Robert Tapia DO (12/30/2021 5:15 PM) [id number]
== END ==
LOC: KCIC 12:42
PROVIDERS: ATTEND Family Medicine
DX: M17.11 Unilateral primary osteoarthritis, right knee (principal)
CPT/HCPCS: 73564